=== PATIENT | male | born 1960 | race Caucasian/White ===

== ENCOUNTER → 2020-06-14 | Outpatient (CLI) | payer SELFPAY | LOC: M LABSMTC 09:51 | PROVIDERS: ATTEND Pediatrics | DX: Z20.822 Contact with and (suspected) exposure to COVID-19 (principal) ==

== ENCOUNTER 2020-07-29 10:31 | Emergency (ER) | payer MEDICARE, SELFPAY ==
[~2020-07-29] VITALS: Ht 177.8 cm; Wt 93.2 kg
[2020-07-29] MEDS ORDERED: KETOROLAC 30 MG/ML 1ML VIAL IV ONE (11:15)
[2020-07-29] MEDS ORDERED: ONDANSETRON 4MG/2ML VIAL IV ONE (11:15)
[2020-07-29] MEDS ORDERED: NS 1,000 ML IV ONE (11:15)
--- OUTSIDE RECORDS SUMMARY | 2020-07-29 11:30 | CCD ---
Continuity of Care Document (CCD) Created on: 05/11/2020 Catracho Taylor External Reference #: [id number] : [id number] Sex: Male Author Author Catracho REYNA Organization Unknown Address [address] [place] [id number] Phone [phone] Care Team Providers Care Instant Printer Operator Name Role Phone PCP Out Of Area AUTM [facility] AUTM [phone] Problems Description No Information Available Social History Type Date Description Comments Sex Unknown Allergies, Adverse Reactions, Alerts Description No Information Available Medications Description No Information Available Immunizations Description No Information Available Vital Signs Description No Information Available Results Description No Information Available Procedures Description No Information Available Medical Devices Description No Information Available Encounters Description No Information Available Assessments Date Code Description Provider 05/11/2020 Z20.828 Contact with and (robertson spected) exposure to other viral communicable diseases RAMEZ Kuo Plan of Treatment No Information Available Functional Status Description No Information Available Mental Status Description No Information Available Referrals Description No Information Available
--- OUTSIDE RECORDS SUMMARY | 2020-07-29 11:30 | CCD | Continuity of Care Document ---
Author Author Catracho REYNA [place] Organization Unknown Address [address] [place] [id number] Phone [phone] Care Team Providers Care Security Advisor Name Role Phone PCP Out Of Area AUTM Unavailable Problems Description No Information Available Social History Type Date Description Comments Sex Unknown Allergies, Adverse Reactions, Alerts Description No Information Available Medications Description No Information Available Immunizations Description No Information Available Vital Signs Description No Information Available Results Description No Information Available Procedures Description No Information Available Medical Devices Description No Information Available Encounters Description No Information Available Assessments Description No Information Available Plan of Treatment No Information Available Functional Status Description No Information Available Mental Status Description No Information Available Referrals Description No Information Available
--- OUTSIDE RECORDS SUMMARY | 2020-07-29 11:30 | CCD ---
Author Author [facility] Organization [facility] Address [address], [place] [id number] Phone Care Team Providers Care Web Support Engineer Name Role Phone Nikolas Franklin Unavailable Allergies, Adverse Reactions, Alerts No Known Drug Allerg ies 07/24/2017 Allergies Removed from Chart: Doxycycline Reaction: NAUSEATED, HEARTBURN 08/23/2016 Isovue-128 07/24/2017 Medications * Continue: * * nortriptyline 25 mg capsule , Take 1-2 capsule (hard, soft, etc.) orally At bedtime 01/22/2011 * PriLOSEC 40 mg capsule,delayed release , Take 1 capsule,delayed release (enteric coated) orally daily 01/22/2011 * Praveen Anderson MD * magnesium oxide 500 mg tablet , Take 1 tablet orally daily 07/10/2013 * Franklin Connor RPA-C * fluticasone propionate 50 mcg/actuation nasal spray,suspension , Take 1-2 spray, suspension nasally QD EA NOSTRIL DIRECTED 05/24/2015 * LaMICtaL 100 mg tablet , Take 1 tablet orally every day 02/20/2019 * Valtrex 1 gram tablet , Take 1 tablet orally Three times a day 06/17/2019 * Discontinued: * Praveen Anderson MD * simvastatin 10 mg tablet , Dr Lopes 06/11/2019 * amoxicillin 875 mg tablet , Take 1 tablet orally Twice a day 10/21/2010 * Augmentin 875 mg-125 mg tablet , Take 1 tablet orally BID 08/01/2017 * * OxyCONTIN 20 mg tablet,extended release , Dr Lepe 04/28/2013 * lisinopriL 5 mg tablet 08/18/2013 * nadoloL 20 mg tablet 07/31/2013 * simvastatin 20 mg tablet 05/26/2013 * metFORMIN ER 500 mg tablet,extended release 24 hr 08/10/2014 * Transderm-Scop 1.5 mg transdermal patch (1 mg over 3 days) 04/28/2013 * amoxicillin 875 mg-potassium clavulanate 125 mg tablet 05/26/2013 * amoxicillin 875 mg tablet , Take 1 tablet orally Twice a day 08/11/2013 * Toprol XL 25 mg tablet,extended release 09/22/2013 * Valtrex 1 gram tablet , Take 1 tablet orally Three times a day 10/22/2016 * KYLEIGH DOMINGUEZ * Jublia 10 % topical solution with applicator 05/06/2018 * amLODIPine 5 mg tablet 06/17/2019 * Wellbutrin SR 200 mg tablet, 12 hr sustained-release 06/17/2019 * Zovirax 400 mg tablet 05/06/2018 * Valtrex 1 gram tablet 05/06/2018 * Valtrex 1 gram tablet 05/06/2018 * Erica Estrada RN * Flomax 0.4 mg capsule , Dr Brown 02/04/2019 * Flonase 50 mcg/actuation nasal spray,suspension 11/07/2015 * nadoloL 20 mg tablet 08/17/2015 * Keflex 500 mg capsule 03/11/2019 * Franklin Connor RPA-C * LaMICtaL 25 mg tablet , Per psychiatrist/Dr Beth 02/20/2019 * penicillin V potassium 500 mg tablet 02/11/2019 * Martha Luna MD * penicillin V potassium 500 mg tablet , Take 1 tablet orally Three times a day 12/03/2010 * Rosangela Ghotra RN * simvastatin 40 mg tablet 10/01/2017 * Pre-existing: * cyclobenzaprine 10 mg tablet , Take 1 tablet orally Three times a day as needed, Dr Lepe * Lidoderm 5 % topical patch , Apply 1 adhesive patch, medicated topically daily if needed, Dr Lepe * multivitamin capsule , Take 1 capsule (hard, soft, etc.) orally daily, otc * aspirin 81 mg chewable tablet , Take 1 tablet, chewable orally every day * Fish Oil [place] 3-6-9 300 mg-1,000 mg capsule,delayed release , Take 1 capsule,delayed release (enteric coated) orally every day, otc * Topamax 100 mg tablet * simvastatin 20 mg tablet , Take 1 tablet orally HS, Dr Lopes Problems Pure hypercholesterolemia (E78.0) 015 Essential (primary) hypertension (I10) 1 Other intervertebral disc displacement, 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) 03/15/2015 Gastro-esophageal reflux disease without esophagitis (K21.9) 03/15/2015 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) 03/15/2015 Encounter for general adult medical exam ination without abnormal findings (Z00.00) 12/07/2015 Sick sinus syndrome (I49.5) 12/07/2015 Presence of cardiac pacemaker (Z95.0) Zoster without complications (B02.9) Type 2 diabetes mellitus without complic ations (E11.9) 10/01/2017 Dorsalgia, unspecified (M54.9) 01/03/2018 Syncope and collapse (R55) 02/04/2019 Acute bronchitis, unspecified (J20.9) 02/11/2019 Pre-existing: Hypertension (401.1) GERD (530.11) Hypercholesterolemia (272.0) NIDDM (250.00) Depression NOS (311) Resolved: Displacement of thoracic intervertebral disc without myelopathy (722.11) 03/15/2015 Displacement oflumbar intervertebral disc without myelopathy (722.10) 03/15/2015 Post Laminectomy syndrome Cervical (722.81) 03/15/2015 Knee pain (719.46) 04/06/2013 Pharyngitis (462) 05/26/2013 CPE adult (V70.0) 04/06/2013 Lateral Epicondylitis (726.32) 04/06/2013 Headache (784.0) 01/12/2014 Sinusitis, Acute (461.9) 05/26/2013 CPE adult (V70.0) 07/31/2013 Sinusitis, Acute (461.9) 01/12/2014 Syncope & collapse (780.2) 01/12/2014 Palpitations (785.1) 03/15/2015 DYSPNEA (786.05) 01/12/2014 Pharyngitis (462) 01/12/2014 Acute pharyngitis (462) 03/15/2015 Dermatophytosis, Onychomycosis (110.1) 03/15/2015 URI (460) 03/15/2015 Postlaminectomy syndrome, not elsewhere classified (M96.1) 03/11/2019 Other intervertebral disc displacement, lumbar region (M51.26) 03/11/2019 Acute upper respiratory infection, unspecified (J06.9) 12/07/2015 Acute pharyngitis, unspecified (J02.9) 03/11/2019 Rash and other nonspecific skin eruption (R21) 03/11/2019 Diplopia (H53.2) 03/11/2019 Headache (R51) 03/11/2019 Acute pharyngitis, unspecified (J02.9) 03/11/2019 Cough (R05) 03/11/2019 Results HEMOGLOBIN A1C @: 5.7 % 08/04/2014 EST AVERAGE GLUCOSE: 117 MG/DL 5 Foot/ankle neuro exam: EXTREMITIES: No edema. . 12/07/2015 Healthcare Proxy: During today's patien t visit, The Healthcare Proxy is in place 12/07/2015 Foot/ankle neuro exam: EXTREMITIES: No edema. . 07/24/2017 Foot/ankle neuro exam: peripheral pulse s are palpable 09/10/2017 HEMOGLOBIN A1C @: 6.3 % 09/10/2017 EST AVERAGE GLUCOSE: 134 MG/DL 09/10/2017 DIRECT LDL @: 141 MG/DL 09/10/2017 TSH,ULTRASENSITIVE @: 0.956 mIU/L 018 CHOLESTEROL @: 237 MG/DL 09/10/2017 TRIGLYCERIDE @: 315 MG/DL 09/10/2017 HDL CHOLESTEROL @: 52 MG/DL 09/10/2017 CHOL/HDL RATIO: 4.6 RATIO 09/10/2017 LDL CHOL (CALC): UNABLE TO CALCULATE VA LID LDL DUE TO 09/10/2017 SODIUM: 139 mmol/L 09/10/2017 Potassium: 3.7 mmol/L 09/10/2017 CHLORIDE: 103 mmol/L 09/10/2017 CO2: 25 mmol/L 09/10/2017 Anion Gap: 11 mmol/L 09/10/2017 UREA NITROGEN: 17 MG/DL 09/10/2017 Creatinine: 1.24 MG/DL 09/10/2017 BUN/CREAT RATIO: 13.7 RATIO 09/10/2017 Glucose: 119 MG/DL 09/10/2017 CALCIUM: 9.3 MG/DL 09/10/2017 TOTAL PROTEIN: 7.9 g/dL 09/10/2017 Albumin: 4.1 g/dL 09/10/2017 GLOBULIN: 3.8 g/dL 09/10/2017 ALB/GLOB RATIO: 1.1 RATIO 09/10/2017 ALKALINE PHOSPHATASE: 81 U/L 09/10/2017 BILIRUBIN,TOTAL: 0.7 MG/DL 09/10/2017 AST (SGOT): 25 U/L 09/10/2017 ALT (SGPT): 43 U/L 09/10/2017 GFR : >60 09/10/2017 GFR ( AMER): >60 09/10/2017 WBC: 6 10*3/uL 09/10/2017 RBC: 4.78 10*6/uL 09/10/2017 HGB: 15.2 g/dL 09/10/2017 HCT: 44.2 % 09/10/2017 MCV: 92.6 fL 09/10/2017 MCH: 31.8 pg 09/10/2017 MCHC: 34.3 g/dL 09/10/2017 RDW: 13.8 % 09/10/2017 PLT: 284 10*3/uL 09/10/2017 MPV: 8.4 fL 09/10/2017 NEUT %: 57.9 % 09/10/2017 LYMPH %: 33.6 % 09/10/2017 MONO %: 6.5 % 09/10/2017 EOS %: 1.4 % 09/10/2017 BASO %: 0.6 % 09/10/2017 NEUT #: 3.5 10*3/uL 09/10/2017 LYMPH #: 2 10*3/uL 09/10/2017 MONO #: 0.4 10*3/uL 09/10/2017 EOS #: 0.1 10*3/uL 09/10/2017 BASO #: 0 10*3/uL 09/10/2017 Foot/ankle neuro exam: EXTREMITIES: No edema. . 01/28/2018 HEPATITIS C AB @: NEGATIVE 02/04/2019 HEMOGLOBIN A1C @: 6.4 % 02/04/2019 EST AVERAGE GLUCOSE: 137 MG/DL 9 TSH,ULTRASENSITIVE @: 0.579 mIU/L 2018 CHOLESTEROL @: 222 MG/DL 02/04/2019 TRIGLYCERIDE @: 211 MG/DL 02/04/2019 HDL CHOLESTEROL @: 52 MG/DL 02/04/2019 CHOL/HDL RATIO: 4.3 RATIO 02/04/2019 LDL CHOL (CALC): 128 MG/DL 02/04/2019 SODIUM: 141 mmol/L 02/04/2019 Potassium: 3.9 mmol/L 02/04/2019 CHLORIDE: 107 mmol/L 02/04/2019 CO2: 30 mmol/L 02/04/2019 Anion Gap: 4 mmol/L 02/04/2019 UREA NITROGEN: 15 MG/DL 02/04/2019 Creatinine: 1.06 MG/DL 02/04/2019 BUN/CREAT RATIO: 14.2 RATIO 02/04/2019 Glucose: 134 MG/DL 02/04/2019 CALCIUM: 8.9 MG/DL 02/04/2019 TOTAL PROTEIN: 7.2 g/dL 02/04/2019 Albumin: 4.1 g/dL 02/04/2019 GLOBULIN: 3.1 g/dL 02/04/2019 ALB/GLOB RATIO: 1.3 RATIO 02/04/2019 ALKALINE PHOSPHATASE: 69 U/L 02/04/2019 BILIRUBIN,TOTAL: 0.7 MG/DL 02/04/2019 AST (SGOT): 19 U/L 02/04/2019 ALT (SGPT): 36 U/L 02/04/2019 GFR : >60 02/04/2019 GFR ( AMER): >60 02/04/2019 WBC: 9.2 10*3/uL 02/04/2019 RBC: 4.35 10*6/uL 02/04/2019 HGB: 14 g/dL 02/04/2019 HCT: 40.9 % 02/04/2019 MCV: 93.8 fL 02/04/2019 MCH: 32.1 pg 02/04/2019 MCHC: 34.2 g/dL 02/04/2019 RDW: 13.5 % 02/04/2019 PLT: 212 10*3/uL 02/04/2019 MPV: 9.3 fL 02/04/2019 NEUT %: 69.8 % 02/04/2019 LYMPH %: 21.2 % 02/04/2019 MONO %: 7.2 % 02/04/2019 EOS %: 1.3 % 02/04/2019 BASO %: 0.5 % 02/04/2019 NEUT #: 6.4 10*3/uL 02/04/2019 LYMPH #: 2 10*3/uL 02/04/2019 MONO #: 0.7 10*3/uL 02/04/2019 EOS #: 0.1 10*3/uL 02/04/2019 BASO #: 0 10*3/uL 02/04/2019 HEMOGLOBIN A1C @: 6 % 12/28/2019 EST AVERAGE GLUCOSE: 126 MG/DL 0 DIRECT LDL @: 139 MG/DL 12/28/2019 COVID IGG SEROLOGY @: NEGATIVE 0 TSH,ULTRASENSITIVE @: 1.58 mIU/L 020 CHOLESTEROL @: 246 MG/DL 12/28/2019 TRIGLYCERIDE @: 348 MG/DL 12/28/2019 HDL CHOLESTEROL @: 47 MG/DL 12/28/2019 CHOL/HDL RATIO: 5.2 RATIO 12/28/2019 LDL CHOL (CALC): UNABLE TO CALCULATE VA LID LDL DUE TO 12/28/2019 PSA,TOTAL SCREEN @: 1.2 ng/mL 12/28/2019 SODIUM: 141 mmol/L 12/28/2019 Potassium: 4 mmol/L 12/28/2019 CHLORIDE: 108 mmol/L 12/28/2019 CO2: 25 mmol/L 12/28/2019 Anion Gap: 8 mmol/L 12/28/2019 UREA NITROGEN: 15 MG/DL 12/28/2019 Creatinine: 1.16 MG/DL 12/28/2019 BUN/CREAT RATIO: 12.9 RATIO 12/28/2019 Glucose: 125 MG/DL 12/28/2019 CALCIUM: 9.1 MG/DL 12/28/2019 TOTAL PROTEIN: 7.5 g/dL 12/28/2019 Albumin: 4.1 g/dL 12/28/2019 GLOBULIN: 3.4 g/dL 12/28/2019 ALB/GLOB RATIO: 1.2 RATIO 12/28/2019 ALKALINE PHOSPHATASE: 57 U/L 12/28/2019 BILIRUBIN,TOTAL: 0.6 MG/DL 12/28/2019 AST (SGOT): 18 U/L 12/28/2019 ALT (SGPT): 32 U/L 12/28/2019 GFR : >60 12/28/2019 GFR ( AMER): >60 12/28/2019 WBC: 5.3 10*3/uL 12/28/2019 RBC: 4.44 10*6/uL 12/28/2019 HGB: 14.3 g/dL 12/28/2019 HCT: 42.5 % 12/28/2019 MCV: 95.6 fL 12/28/2019 MCH: 32.1 pg 12/28/2019 MCHC: 33.6 g/dL 12/28/2019 RDW: 13.6 % 12/28/2019 PLT: 217 10*3/uL 12/28/2019 MPV: 9 fL 12/28/2019 NEUT %: 50.6 % 12/28/2019 LYMPH %: 39.1 % 12/28/2019 MONO %: 7.3 % 12/28/2019 EOS %: 2.3 % 12/28/2019 BASO %: 0.7 % 12/28/2019 NEUT #: 2.7 10*3/uL 12/28/2019 LYMPH #: 2.1 10*3/uL 12/28/2019 MONO #: 0.4 10*3/uL 12/28/2019 EOS #: 0.1 10*3/uL 12/28/2019 BASO #: 0 10*3/uL 12/28/2019 Procedures Performed and Ordered Today * Colonoscopy Dr Pineda (repeat 2019) 08/08/2014 * HIV Test Offered 12/07/2015 * Hepatitis C test offered 12/07/2015 * Vaccine registry consented 12/07/2015 * HIE Consented YES 01/28/2018 * * Immunization : MMR 02/18/2018 Vital signs Body Temperature: Heart Rate: Respiratory Rate: BP: Height: Weight: BMI: 98.5F 02/11/2019 68 beats per minute 0 18 breaths per minute 01/02/2016 123/82 mmHg 11/12/2019 5ft, 11in 11/12/2019 212lbs 11/12/2019 29.565 11/12/2019 Immunizations FLU SHOT >3YO (Fluzone) 04/23/2008 Tdap (ADULT) >6 04/23/2008 FLU SHOT >3YO (Fluzone) 02/16/2009 FLU SHOT >3YO (Fluzone) 04/22/2012 FLU SHOT >3YO (Fluzone) 05/23/2010 FLU SHOT >3YO (Fluzone) 04/22/2012 FLU SHOT >3YO (Fluzone) 04/06/2013 Flu QUAD PF 04/11/2017 Shingrix 10/12/2017 MEASLES IGG AB @ 11/05/2014 MUMPS IGG (IMMUNE) @ 11/05/2014 RUBELLA IGG AB @ 11/05/2014 VARICELLA ZOST IGG @ 11/05/2014 MMR 02/18/2018 MMR 02/18/2018 Shingrix 06/02/2018 Tdap (ADULT) >6 07/25/2018 Flu QUAD PF 03/11/2019 Social History Smoking Status: Never smoker. 02/04/2019 Reason for Referral Functional Status Plan of Treatment Appointments [facility] ed: October 20 8, 11:30 AM, Jairo Bhatt MD Saturday, November 10, 2007, 1:30 PM, Jairo Bhatt MD Wednesday, December 19, 2007, 9:30 AM, Jairo Bhatt MD Wednesday, April 23, 2008, 10:30 AM, Jairo Bhatt MD Wednesday, September 10, 2008, 11:00 AM, Jairo Bhatt MD Sunday, October 12, 2008, 12:00 PM, Jiaro Bhatt MD Sunday, December 14, 2008, 11:00 AM, Jairo Bhatt MD Monday, February 16, 2009, 11:00 AM, Jairo Bhatt MD Sunday, March 15, 2009, 9:30 AM, Jairo Bhatt MD Sunday, March 15, 2009, 10:00 AM, Jairo Bhatt MD Sunday, June 21, 2009, 11:00 AM, Jairo Bhatt MD Saturday, July 04, 2009, 11:30 AM, Jairo Bhatt MD Wednesday, July 15, 2009, 5:15 PM, Jairo Bhatt MD Sunday, July 19, 2009, 9:30 AM, Jairo Bhatt MD Saturday, September 12, 2009, 10:30 AM, Martha Luna MD Monday, December 07, 2009, 12:00 PM, Jairo Bhatt MD Sunday, December 20, 2009, 10:00 AM, Jairo Bhatt MD Sunday, May 23, 2010, 12:00 PM, Jairo Bhatt MD Sunday, July 04, 2010, 8:30 AM, Jairo Bhatt MD Monday, October 11, 2010, 3:15 PM, Praveen Anderson MD October, 11:30 AM, Martha Luna MD Saturday, January 22, 2011, 12:00 PM, Jairo Bhatt MD Sunday, June 19, 2011, 1:30 PM, Jairo Bhatt MD Sunday, June 19, 2011, 2:00 PM, Jairo Bhatt MD Sunday, July 24, 2011, 9:30 AM, Jairo Bhatt MD Sunday, October 23, 2011, 8:45 AM, Jairo Bhatt MD Sunday, December 25, 2011, 2:15 PM, Jairo Bhatt MD Sunday, January 22, 2012, 10:00 AM, Jairo Bhatt MD Sunday, April 22, 2012, 10:00 AM, Jairo Bhatt MD Saturday, December 22, 2012, 9:45 AM, Jairo Bhatt MD Saturday, April 06, 2013, 1:30 PM, Jairo Bhatt MD Sunday, April 28, 2013, 12:00 PM, Jairo Bhatt MD Wednesday, May 08, 2013, 2:30 PM, Martha Luna MD Sunday, May 26, 2013, 10:00 AM, Jairo Bhatt MD Wednesday, July 31, 2013, 1:30 PM, Jairo Bhatt MD Wednesday, July 31, 2013, 2:00 PM, Jairo Bhatt MD Sunday, August 18, 2013, 10:00 AM, Jairo Bhatt MD Sunday, September 22, 2013, 8:30 AM, Jairo Bhatt MD Monday, December 30, 2013, 8:30 AM, Jairo Bhatt MD Sunday, January 12, 2014, 9:45 AM, Jairo Bhatt MD daisyJuly 01, 2014, 10:30 AM, Praveen Anderson MD Saturday, August 09, 2014, 10:00 AM, Andie MYRICK Sunday, August 10, 2014, 10:00 AM, Jairo Bhatt MD Sunday, September 14, 2014, 11:15 AM, Jairo Bhatt MD Sunday, March 15, 2015, 11:00 AM, Jairo Bhatt MD Monday, August 17, 2015, 3:30 PM, Praveen Anderson MD Monday, December 07, 2015, 10:00 AM, Jairo Bhatt MD Saturday, January 02, 2016, 1:30 PM, Jairo Bhatt MD March, 11:30 AM, Praveen Anderson MD August, 11:15 AM, Praveen Anderson MD Saturday, October 16, 2016, 3:00 PM, Terence Mortensen MD Monday, July 24, 2017, 3:30 PM, Damaris MYRICK Sunday, September 10, 2017, 11:00 AM, Praveen Anderson MD Sunday, October 01, 2017, 10:00 AM, Praveen Anderson MD Wednesday, January 03, 2018, 11:00 AM, Praveen Anderson MD Sunday, January 28, 2018, 3:00 PM, Praveen Anderson MD Saturday, February 18, 2018, 9:45 AM, Monday, February 04, 2019, 10:45 AM, Franklin MYRICK Monday, February 11, 2019, 11:00 AM, Franklin MYRICK Monday, March 11, 2019, 2:45 PM, Andie [facility] Monday, June 17, 2019, 8:30 AM, Franklin MYRICK Wednesday, August 21, 2019, 1:30 PM, Praveen Anderson MD November, 1:40 PM, Praveen Anderson MD Saturday, December 28, 2019, 9:15 AM, Payers Insurance Policy Type Po licy ID Relation Subscriber Expi ration [employer] Com[employer] l Insurance [id number] HARSH RAY 08/07/2018 [employer] [place] [employer] [place] [employer]/Shield [id number] HARSH RAY 12/08/2010 [employer] [facility] MEDICARE SOLUTIONS 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 Insurance [id number] Self TYSHAWN RAY [employer] [place] [employer] [place] [employer]ield [id number] HARSH RAY 12/07/2008 Encounters Annual wellness firs t 11/12/2019 Diagnoses Type 2 diabetes mellitus without complications Essential (primary) hypertension Office Visit - Level 3 06/17/2019 Office Visit - Level 3 02/11/2019 Office/Outpatient Vi sit, Est 02/04/2019 Office Visit - Level 3 01/28/2018 Diagnoses Acute pharyngitis, unspecified Office Visit - Level 3 01/03/2018 Diagnoses Dorsalgia, unspecified Preventive Visit, Es t, 40-64 09/10/2017 Diagnoses Encounter for general adult medical examination without abnormal findings Office Visit - Level 3 10/16/2016 Diagnoses Rash and other nonspecific skin eruption Office/Outpatient Vi sit, Est 08/23/2016 Diagnoses Zoster without complications Office/Outpatient Vi sit, Est 04/05/2016 Diagnoses Acute pharyngitis, unspecified Office Visit - Level 3 01/02/2016 Diagnoses Acute pharyngitis, unspecified Other intervertebral disc displacement, thoracic region Postlaminectomy syndrome, not elsewhere classified Other intervertebral disc displacement, lumbar region Preventive Visit, Es t, 40-64 12/07/2015 Diagnoses Encounter for general adult medical examination without abnormal findings Essential (primary) hypertension Gastro-esophageal reflux disease without esophagitis Other recurrent depressive disorders Office Visit - Level 3 08/17/2015 Diagnoses Acute upper respiratory infection, unspecified Office Visit - Level 3 03/15/2015 Diagnoses Essential (primary) hypertension Other intervertebral disc displacement, thoracic region Other recurrent depressive disorders Postlaminectomy syndrome, not elsewhere classified Other intervertebral disc displacement, lumbar region Office Visit - Level 3 09/14/2014 Office/Outpatient Vi sit, Est 08/10/2014 Office Visit - Level 3 07/01/2014 Office Visit - Level 3 01/12/2014 Office Visit - Level 3 12/30/2013 Office Visit - Level 3 09/22/2013 Office Visit - Level 3 08/18/2013 Office/Outpatient Vi sit, Est 07/31/2013 Preventive Visit, Es t, 40-64 05/26/2013 Office Visit - Level 3 05/08/2013 Office Visit - Level 3 04/28/2013 Office Visit - Level 3 04/06/2013 Office Visit - Level 3 12/22/2012 Preventive Visit, Es t, 40-64 04/22/2012 Office Visit - Level 3 01/22/2012 Office Visit - Level 3 12/25/2011 Office Visit - Level 3 10/23/2011 Office Visit - Level 3 07/24/2011
--- OUTSIDE RECORDS SUMMARY | 2020-07-29 11:31 | CCD ---
Author Author [facility] Organization [facility] Address Unknown Phone Unavailable Care Team Providers Care Vp Research Name Role Phone Liss GORE Unavailable Unavailable DanielaateVan chappell MD Unavailable Unavailable Bagatell L Jairo BOB Unavailable Unavailable Bagatell L Jairo BOB Unavailable Unavailable Bagatell, L Jairo BOB Unavailable Unavailable Bagatell L Jairo BOB Unavailable Unavailable Bagatell L Jairo BOB Unavailable Unavailable BagatellVan MD Unavailable Unavailable Bagatell L Jairo BOB Unavailable Unavailable Bagatell, L Jairo BOB Unavailable Unavailable Bagatell, L Jairo BOB Unavailable Unavailable Bagatell L Jairo BOB Unavailable Unavailable Bagatell L Jairo BOB Unavailable Unavailable Bagatell L Jairo BOB Unavailable Unavailable Bagatell L Jairo MD Unavailable Unavailable Bagatell L Jairo BOB Unavailable Unavailable Bagatell, L Jairo BOB Unavailable Unavailable Bagatell, L Jairo BOB Unavailable Unavailable Bagatell L Jairo Unavailable Unavailable Bagatell, L Jairo Unavailable Unavailable Bagatell, L Jairo Unavailable Unavailable Bagatell, L Jairo Unavailable Unavailable Bagatell, L Jairo MD Unavailable Unavailable Bagatell, L Jairo Unavailable Unavailable Bagatell, L Jairo MD Unavailable Unavailable Bagatell, L Jairo Unavailable Unavailable Bagatell, L Jairo Unavailable Unavailable Bagatell, L Jairo MD Unavailable Unavailable Danielaateta, Van Gill MD Unavailable Unavailable Bagateta, Van Gill MD Unavailable Unavailable Bagateta, Van Gill MD Unavailable Unavailable Bagateat, Van Gill MD Unavailable Unavailable Bagateta, Van Gill MD Unavailable Unavailable Miller, Van Gill MD Unavailable Unavailable Miller, Van Gill MD Unavailable Unavailable Bagateta, Van Gill MD Unavailable Unavailable Bagateta, Van Gill MD Unavailable Unavailable Alvarenga, M Martha UKE DRIVER Unavailable Unavailable Alvarenga, M Martha UKE DRIVER Unavailable Unavailable Alvarenga, M Martha UKE DRIVER Unavailable Unavailable Alvarenga, M Martha UKE DRIVER Unavailable Unavailable Alvarenga, M Martha UKE DRIVER Unavailable Unavailable Alvarenga, M Martha UKE DRIVER Unavailable Unavailable Alvarenga, M Martha UKE DRIVER Unavailable Unavailable Alvarenga, M Martha UKE DRIVER Unavailable Unavailable Alvarenga, M Martha UKE DRIVER Unavailable Unavailable Alvarenga, M Martha UKE DRIVER Unavailable Unavailable Alvarenga, M Martha UKE DRIVER Unavailable Unavailable Alvarenga, M Martha UKE DRIVER Unavailable Unavailable Alvarenga, M Martha UKE DRIVER Unavailable Unavailable Alvarenga, M Martha UKE DRIVER Unavailable Unavailable Alvarenga, M Martha UKE DRIVER Unavailable Unavailable Alvarenga, M Martha UKE DRIVER Unavailable Unavailable Alvarenga, M Martha UKE DRIVER Unavailable Unavailable Alvarenga, M Martha UKE DRIVER Unavailable Unavailable Alvarenga, M Martha UKE DRIVER Unavailable Unavailable Alvarenga, M Martha UKE DRIVER Unavailable Unavailable Alvarenga, M Martha UKE DRIVER Unavailable Unavailable Alvarenga, M Martha UKE DRIVER Unavailable Unavailable Alvarenga, M Martha UKE DRIVER Unavailable Unavailable Alvarenga, M Martha UKE DRIVER Unavailable Unavailable Alvarenga, M Martha UKE DRIVER Unavailable Unavailable Alvarenga, M Martha UKE DRIVER Unavailable Unavailable Alvarenga, M Martha UKE DRIVER Unavailable Unavailable REAGAN, Liss PALOMARES MD Unavailable Unavailable Liss KIRK MD Unavailable Unavailable Liss KIRK MD Unavailable Unavailable Liss KIRK MD Unavailable Unavailable Liss KIRK MD Unavailable Unavailable Liss KIRK MD Unavailable Unavailable Liss KIRK MD Unavailable Unavailable Liss KIRK MD Unavailable Unavailable Liss KIRK MD Unavailable Unavailable Liss KIRK MD Unavailable Unavailable Liss KIRK MD Unavailable Unavailable Liss KIRK MD Unavailable Unavailable Liss KIRK MD Unavailable Unavailable Liss KIRK MD Unavailable Unavailable Liss KIRK MD Unavailable Unavailable REAGAN, Liss PALOMARES MD Unavailable Unavailable REAGAN, Liss PALOMARES MD Unavailable Unavailable REAGAN, Liss PALOMARES MD Unavailable Unavailable REAGAN, Liss PALOMARES MD Unavailable Unavailable REAGAN, Liss PALOMARES MD Unavailable Unavailable REAGAN, Liss PALOMARES MD Unavailable Unavailable REAGAN, Liss PALOMARES MD Unavailable Unavailable REAGAN, Liss PALOMARES MD Unavailable Unavailable REAGAN, Liss PALOMARES MD Unavailable Unavailable REAGAN, Liss PALOMARES MD Unavailable Unavailable REAGAN, Liss PALOMARES MD Unavailable Unavailable REAGAN, Liss PALOMARES MD Unavailable Unavailable REAGAN, Liss PALOMARES MD Unavailable Unavailable REAGAN, Liss PALOMARES MD Unavailable Unavailable REAGAN, Liss PALOMARES MD Unavailable Unavailable REAGAN, Liss PALOMARES MD Unavailable Unavailable REAGAN, Liss PALOMARES MD Unavailable Unavailable REAGAN, Liss PALOMARES MD Unavailable Unavailable REAGAN, Liss PALOMARES MD Unavailable Unavailable REAGAN, Liss PALOMARES MD Unavailable Unavailable REAGAN, Liss PALOMARES MD Unavailable Unavailable REAGAN, Liss PALOMARES MD Unavailable Unavailable REAGAN, Liss PALOMARES MD Unavailable Unavailable REAGAN, Liss PALOMARES MD Unavailable Unavailable REAGAN, Liss PALOMARES MD Unavailable Unavailable REAGNA, Liss PALOMARES MD Unavailable Unavailable REAGAN, Liss PALOMARES MD Unavailable Unavailable REAGAN, Liss PALOMARES MD Unavailable Unavailable REAGAN, Liss PALOMARES MD Unavailable Unavailable REAGAN, Liss PALOMARES MD Unavailable Unavailable REAGAN, Liss PALOMARES MD Unavailable Unavailable REAGAN, Liss PALOMARES MD Unavailable Unavailable REAGAN, Liss PALOMARES MD Unavailable Unavailable REAGAN, Liss PALOMARES MD Unavailable Unavailable REAGAN, Liss PALOMARES MD Unavailable Unavailable REAGAN, Liss PALOMARES MD Unavailable Unavailable REAGAN, Liss PALOMARES MD Unavailable Unavailable REAGAN, Liss PALOMARES MD Unavailable Unavailable REAGAN, Liss PALOMARES MD Unavailable Unavailable REAGAN, Liss PALOMARES MD Unavailable Unavailable REAGAN, Liss PALOMARES MD Unavailable Unavailable REAGAN, Liss PALOMARES MD Unavailable Unavailable REAGAN, Liss PALOMARES MD Unavailable Unavailable REAGAN, Liss PALOMARES MD Unavailable Unavailable REAGAN, A CHRISTOPHER MD Unavailable Unavailable REAGAN, A JELANI MD Unavailable Unavailable REAGAN, A CHRISTOPHER MD Unavailable Unavailable REAGAN, A CHRISTOPHER MD Unavailable Unavailable REAGAN, A CHRISTOPHER MD Unavailable Unavailable REAGAN, A CHRISTOPHER MD Unavailable Unavailable REAGAN, A CHRISTOPHER MD Unavailable Unavailable REAGAN, A CHRISTOPHER MD Unavailable Unavailable REAGAN, A CHRISTOPHER MD Unavailable Unavailable REAGAN, A LATISHAOPHER MD Unavailable Unavailable REAGAN, A LATISHAOPHER MD Unavailable Unavailable REAGAN, A CHRISTOPHER MD Unavailable Unavailable REAGAN, A CHRISTOPHER MD Unavailable Unavailable ANDERSON, SILVIA MD Unavailable Unavailable ANDERSON, SILVIA MD Unavailable Unavailable ANDERSON, SILVIA MD Unavailable Unavailable ANDERSON, SILVIA MD Unavailable Unavailable ANDERSON, SILVIA MD Unavailable Unavailable ANDERSON, SILVIA MD Unavailable Unavailable ANDERSON, SILVIA MD Unavailable Unavailable ANDERSON, SILVIA MD Unavailable Unavailable ANDERSON, SILVIA MD Unavailable Unavailable ANDERSON, SILVIA MD Unavailable Unavailable ANDERSON, SILVIA MD Unavailable Unavailable ANDERSON, SILVIA MD Unavailable Unavailable ANDERSON, SILVIA MD Unavailable Unavailable ANDERSON, SILVIA MD Unavailable Unavailable ANDERSON, SILVIA MD Unavailable Unavailable ANDERSON, SILVIA MD Unavailable Unavailable ANDERSON, SILVIA MD Unavailable Unavailable ANDERSON, SILVIA MD Unavailable Unavailable ANDERSON, SILVIA MD Unavailable Unavailable ANDERSON, SILVIA MD Unavailable Unavailable ANDERSON, SILVIA MD Unavailable Unavailable ANDERSON, SILVIA MD Unavailable Unavailable ANDERSON, SILVIA MD Unavailable Unavailable ANDERSON, SILVIA MD Unavailable Unavailable ANDERSON, SILVIA MD Unavailable Unavailable ANDERSON, SILVIA MD Unavailable Unavailable ANDERSON, SILVIA MD Unavailable Unavailable ANDERSON, SILVIA MD Unavailable Unavailable ANDERSON, SILVIA MD Unavailable Unavailable ANDERSON, SILVIA MD Unavailable Unavailable ANDERSON, SILVIA MD Unavailable Unavailable ANDERSON, SILVIA MD Unavailable Unavailable ANDERSON, SILVIA MD Unavailable Unavailable ANDERSON, SILVIA MD Unavailable Unavailable ANDERSON, SILVIA MD Unavailable Unavailable ANDERSON, SILVIA MD Unavailable Unavailable ANDERSON, SILVIA MD Unavailable Unavailable ANDERSON, SILVIA MD Unavailable Unavailable ANDERSON, SILVIA MD Unavailable Unavailable ANDERSON, SILVIA MD Unavailable Unavailable ANDERSON, SILVIA MD Unavailable Unavailable ANDERSON, SILVIA MD Unavailable Unavailable ANDERSON, SILVIA MD Unavailable Unavailable ANDERSON, SILVIA MD Unavailable Unavailable ANDERSON, SILVIA MD Unavailable Unavailable ANDERSON, SILVIA MD Unavailable Unavailable ANDERSON, SILVIA MD Unavailable Unavailable ANDERSON, SILVIA MD Unavailable Unavailable ANDERSON, SILIVA MD Unavailable Unavailable ANDERSON, SILVIA MD Unavailable Unavailable ANDERSON, SILVIA MD Unavailable Unavailable ANDERSON, SILVIA MD Unavailable Unavailable ANDERSON, SILVIA MD Unavailable Unavailable ANDERSON, SILVIA MD Unavailable Unavailable ANDERSON, SILVIA MD Unavailable Unavailable ANDERSON, SILVIA MD Unavailable Unavailable ANDERSON, SILVIA MD Unavailable Unavailable ANDERSON, SILVIA MD Unavailable Unavailable ANDERSON, SILVIA MD Unavailable Unavailable ANDERSON, SILVIA MD Unavailable Unavailable ANDERSON, SILVIA MD Unavailable Unavailable ANDERSON, SILVIA MD Unavailable Unavailable ANDERSON, SILVIA MD Unavailable Unavailable ANDERSON, SILVIA MD Unavailable Unavailable ANDERSON, SILVIA MD Unavailable Unavailable ANDERSON, SILVIA MD Unavailable Unavailable ANDERSON, SILVIA MD Unavailable Unavailable ANDERSON, SILVIA MD Unavailable Unavailable ANDERSON, SILVIA MD Unavailable Unavailable ANDERSON, SILVIA MD Unavailable Unavailable ANDERSON, SILVIA MD Unavailable Unavailable ANDERSON, SILVIA MD Unavailable Unavailable ANDERSON, SILVIA MD Unavailable Unavailable REAGAN, Liss PALOMARES MD Unavailable Unavailable REAGAN, Liss PALOMARES MD Unavailable Unavailable REAGAN, Liss PALOMARES MD Unavailable Unavailable REAGAN, Liss PALOMARES MD Unavailable Unavailable REAGAN, Liss PALOMARES MD Unavailable Unavailable REAGAN, Liss PALOMARES MD Unavailable Unavailable REAGAN, Liss PALOMARES MD Unavailable Unavailable REAGAN, Liss PALOMARES MD Unavailable Unavailable REAGAN, Liss PALOMARES MD Unavailable Unavailable REAGAN, Liss PALOMARES MD Unavailable Unavailable REAGAN, Liss PALOMARES MD Unavailable Unavailable REAGAN, Liss PALOMARES MD Unavailable Unavailable REAGAN, Liss PALOMARES MD Unavailable Unavailable REAGAN, Liss PALOMARES MD Unavailable Unavailable REAGAN, Liss PALOMARES MD Unavailable Unavailable REAGAN, Liss PALOMARES MD Unavailable Unavailable REAGAN, Liss PALOMARES MD Unavailable Unavailable REAGAN, Liss PALOMARES MD Unavailable Unavailable REAGAN, Liss PALOMARES MD Unavailable Unavailable REAGAN, Liss PALOMARES MD Unavailable Unavailable REAGAN, Liss PALOMARES MD Unavailable Unavailable REAGAN, Liss PALOMARES MD Unavailable Unavailable REAGAN, Liss PALOMARES MD Unavailable Unavailable REAGAN, Liss PALOMARES MD Unavailable Unavailable REAGAN, Liss PALOMARES MD Unavailable Unavailable REAGAN, Liss PALOMRAES MD Unavailable Unavailable REAGAN, Liss PALOMARES MD Unavailable Unavailable REAGAN, Liss PALOMARES MD Unavailable Unavailable REAGAN, Liss PALOMARES MD Unavailable Unavailable REAGAN, Liss PALOMARES MD Unavailable Unavailable REAGAN, Liss PALOMARES MD Unavailable Unavailable REAGAN, Liss PALOMARES MD Unavailable Unavailable REAGAN, Liss PALOMARES MD Unavailable Unavailable REAGAN, Liss PALOMARES MD Unavailable Unavailable REAGAN, Liss PALOMARES MD Unavailable Unavailable REAGAN, Liss PALOMARES MD Unavailable Unavailable REAGAN, Liss PALOMARES MD Unavailable Unavailable REAGAN, Liss PALOMARES MD Unavailable Unavailable REAGAN, Liss PALOMARES MD Unavailable Unavailable REAGAN, Liss PALOMARES MD Unavailable Unavailable REAGAN, Liss PALOMARES MD Unavailable Unavailable REAGAN, Liss PALOMARES MD Unavailable Unavailable REAGAN, Liss PALOMARES MD Unavailable Unavailable REAGAN, Liss PALOMARES MD Unavailable Unavailable REAGAN, Liss PALOMARES MD Unavailable Unavailable REAGAN, Liss PALOMARES MD Unavailable Unavailable REAGAN, Liss PALOMARES MD Unavailable Unavailable REAGAN, Liss PALOMARES MD Unavailable Unavailable REAGAN, Liss PALOMARES MD Unavailable Unavailable REAGAN, Liss PALOMARES MD Unavailable Unavailable REAGAN, Liss PALOMARES MD Unavailable Unavailable REAGAN, Liss PALOMARES MD Unavailable Unavailable REAGAN, Liss PALOMARES MD Unavailable Unavailable REAGAN, Liss PALOMARES MD Unavailable Unavailable REAGAN, Liss PALOMARES MD Unavailable Unavailable REAGAN, Liss PALOMARES MD Unavailable Unavailable REAGAN, Liss PALOMARES MD Unavailable Unavailable REAGAN, Liss PALOMARES MD Unavailable Unavailable REAGAN, Liss PALOMARES MD Unavailable Unavailable REAGAN, Liss PALOMARES MD Unavailable Unavailable REAGAN, Liss PALOMARES MD Unavailable Unavailable REAGAN, Liss PALOMARES MD Unavailable Unavailable REAGAN, Liss PALOMARES MD Unavailable Unavailable REAGAN, Liss PALOMARES MD Unavailable Unavailable REAGAN, Liss PALOMARES MD Unavailable Unavailable REAGAN, Liss PALOMARES MD Unavailable Unavailable REAGAN, Liss PALOMARES MD Unavailable Unavailable REAGAN, Liss PALOMARES MD Unavailable Unavailable REAGAN, Liss PALOMARES MD Unavailable Unavailable REAGAN, Liss PALOMARES MD Unavailable Unavailable REAGAN, Liss PALOMARES MD Unavailable Unavailable REAGAN, Liss PALOMARES MD Unavailable Unavailable JACQUELYN, COLETTE PA Unavailable Unavailable JACQUELYN, COLETTE PA Unavailable Unavailable JACQUELYN, COLETTE PA Unavailable Unavailable JACQUELYN, COLETTE PA Unavailable Unavailable JACQUELYN, COLETTE PA Unavailable Unavailable JACQUELYN, COLETTE PA Unavailable Unavailable JACQUELYN, COLETTE PA Unavailable Unavailable JACQUELYN, COLETTE PA Unavailable Unavailable JACQUELYN, COLETTE PA Unavailable Unavailable JACQUELYN, COLETTE PA Unavailable Unavailable JACQUELYN, COLETTE PA Unavailable Unavailable JACQUELYN, COLETTE PA Unavailable Unavailable JACQUELYN, COLETTE PA Unavailable Unavailable JACQUELYN, COLETTE PA Unavailable Unavailable JACQUELYN, COLETTE PA Unavailable Unavailable JACQUELYN, COLETTE PA Unavailable Unavailable JACQUELYN, COLETTE PA Unavailable Unavailable JACQUELYN, COLETTE PA Unavailable Unavailable JACQUELYN, COLETTE PA Unavailable Unavailable JACQUELYN, COLETTE PA Unavailable Unavailable JACQUELYN, COLETTE PA Unavailable Unavailable JACQUELYN, COLETTE PA Unavailable Unavailable JACQUELYN, COLETTE PA Unavailable Unavailable JACQUELYN, COLETTE PA Unavailable Unavailable JACQUELYN, COLETTE PA Unavailable Unavailable JACQUELYN, COLETTE PA Unavailable Unavailable JACQUELYN, COLETTE PA Unavailable Unavailable JACQUELYN, COLETTE PA Unavailable Unavailable JACQUELYN, COLETTE PA Unavailable Unavailable JACQUELYN, COLETTE PA Unavailable Unavailable JACQUELYN, COLETTE PA Unavailable Unavailable JACQUELYN, COLETTE PA Unavailable Unavailable Evan Aguirre MD Unavailable Unavailable Evan Aguirre MD Unavailable Unavailable Evna Aguirre MD Unavailable Unavailable Evan Aguirre MD Unavailable Unavailable Evan Aguirre MD Unavailable Unavailable Evan Aguirre MD Unavailable Unavailable Evan Aguirre MD Unavailable Unavailable Evan Aguirre MD Unavailable Unavailable Evan Aguirre MD Unavailable Unavailable Evan Aguirre MD Unavailable Unavailable Evan Aguirre MD Unavailable Unavailable Evan Aguirre MD Unavailable Unavailable Evan Aguirre MD Unavailable Unavailable Evan Aguirre MD Unavailable Unavailable Evan Aguirre MD Unavailable Unavailable Evan Aguirre MD Unavailable Unavailable Evan Aguirre MD Unavailable Unavailable Evan Aguirre MD Unavailable Unavailable Evan Aguirre MD Unavailable Unavailable Evan Aguirre MD Unavailable Unavailable Evan Aguirre MD Unavailable Unavailable Evan Aguirre MD Unavailable Unavailable Evan Aguirre MD Unavailable Unavailable Evan Aguirre MD Unavailable Unavailable Hazel GreenEvan MD Unavailable Unavailable Hazel GreenEvan MD Unavailable Unavailable TimothyEvannt Unavailable Unavailable TimothyEvan MD Unavailable Unavailable TimothyEvan Baldo MD Unavailable Unavailable Hazel GreenEvan MD Unavailable Unavailable TimothyEvan MD Unavailable Unavailable TimothyEvan MD Unavailable Unavailable TimothyEvan Baldo Unavailable Unavailable Hazel GreenEvan Baldo MD Unavailable Unavailable Hazel GreenEvan MD Unavailable Unavailable Hazel GreenEvan Baldo Unavailable Unavailable Hazel GreenEvan MD Unavailable Unavailable TimothyEvan MD Unavailable Unavailable Hazel GreenEvan MD Unavailable Unavailable TimothyEvannt Unavailable Unavailable TimothyEvan MD Unavailable Unavailable TimothyEvan MD Unavailable Unavailable TimothyEavn MD Unavailable Unavailable Hazel GreenEvan MD Unavailable Unavailable TimothyEvan MD Unavailable Unavailable Hazel GreenEvan MD Unavailable Unavailable Hazel Green, Evan Baldo MD Unavailable Unavailable TimothyEvan Baldo MD Unavailable Unavailable DUSSING, EDITH PSYCHOLOGIST ENGINEERING-C Unavailable Unavailable DUSSING, EDITH PSYCHOLOGIST ENGINEERING-C Unavailable Unavailable DUSSING, EDITH PSYCHOLOGIST ENGINEERING-C Unavailable Unavailable DUSSING, EDITH PSYCHOLOGIST ENGINEERING-C Unavailable Unavailable DUSSING, EDITH PSYCHOLOGIST ENGINEERING-C Unavailable Unavailable DUSSING, EDITH PSYCHOLOGIST ENGINEERING-C Unavailable Unavailable DUSSING, EDITH PSYCHOLOGIST ENGINEERING-C Unavailable Unavailable DUSSING, EDITH PSYCHOLOGIST ENGINEERING-C Unavailable Unavailable DUSSING, EDITH PSYCHOLOGIST ENGINEERING-C Unavailable Unavailable DUSSING, EDITH PSYCHOLOGIST ENGINEERING-C Unavailable Unavailable DUSSING, EDITH PSYCHOLOGIST ENGINEERING-C Unavailable Unavailable DUSSING, EDITH PSYCHOLOGIST ENGINEERING-C Unavailable Unavailable DUSSING, EDITH PSYCHOLOGIST ENGINEERING-C Unavailable Unavailable DUSSING, EDITH PSYCHOLOGIST ENGINEERING-C Unavailable Unavailable DUSSING, EDITH PSYCHOLOGIST ENGINEERING-C Unavailable Unavailable DUSSING, EDITH PSYCHOLOGIST ENGINEERING-C Unavailable Unavailable DUSSING, EDITH PSYCHOLOGIST ENGINEERING-C Unavailable Unavailable DUSSING, EDITH PSYCHOLOGIST ENGINEERING-C Unavailable Unavailable DUSSING, EDITH PSYCHOLOGIST ENGINEERING-C Unavailable Unavailable DUSSING, EDITH PSYCHOLOGIST ENGINEERING-C Unavailable Unavailable DUSSING, EDITH PSYCHOLOGIST ENGINEERING-C Unavailable Unavailable DUSSING, EDITH PSYCHOLOGIST ENGINEERING-C Unavailable Unavailable DUSSING, EDITH PSYCHOLOGIST ENGINEERING-C Unavailable Unavailable DUSSING, EDITH PSYCHOLOGIST ENGINEERING-C Unavailable Unavailable DUSSING, EDITH PSYCHOLOGIST ENGINEERING-C Unavailable Unavailable DUSSING, EDITH PSYCHOLOGIST ENGINEERING-C Unavailable Unavailable DUSSING, EDITH PSYCHOLOGIST ENGINEERING-C Unavailable Unavailable DUSSING, EDITH PSYCHOLOGIST ENGINEERING-C Unavailable Unavailable DUSSING, EDITH PSYCHOLOGIST ENGINEERING-C Unavailable Unavailable DUSSING, EDITH PSYCHOLOGIST ENGINEERING-C Unavailable Unavailable DUSSING, EDITH PSYCHOLOGIST ENGINEERING-C Unavailable Unavailable DUSSING, EDITH PSYCHOLOGIST ENGINEERING-C Unavailable Unavailable DUSSING, EDITH PSYCHOLOGIST ENGINEERING-C Unavailable Unavailable Nikolas, Franklin PA Unavailable Unavailable Nikolas, Franklin PA Unavailable Unavailable Nikolas, Franklin PA Unavailable Unavailable Nikolas, Franklin PA Unavailable Unavailable Nikolas, Franklin PA Unavailable Unavailable Nikolas, Franklin PA Unavailable Unavailable Nikolas, Franklin PA Unavailable Unavailable Nikolas, Franklin PA Unavailable Unavailable Nikolas, Franklin PA Unavailable Unavailable Nikolas, Franklin PA Unavailable Unavailable Nikolas, Franklin PA Unavailable Unavailable Nikolas, Franklin PA Unavailable Unavailable Nikolas, Franklin PA Unavailable Unavailable Nikolas, Franklin PA Unavailable Unavailable Nikolas, Franklin PA Unavailable Unavailable Nikolas, Franklin PA Unavailable Unavailable Nikolas, Franklin PA Unavailable Unavailable Nikolas, Franklin PA Unavailable Unavailable Nikolas, Franklin PA Unavailable Unavailable Nikolas, Franklin PA Unavailable Unavailable Nikolas, Franklin PA Unavailable Unavailable Nikolas, Franklin PA Unavailable Unavailable Nikolas, Franklin PA Unavailable Unavailable Nikolas, Franklin PA Unavailable Unavailable Nikolas, Franklin PA Unavailable Unavailable Nikolas, Franklin PA Unavailable Unavailable Nikolas, Franklin PA Unavailable Unavailable Nikolas, Franklin PA Unavailable Unavailable Nikolas, Franklin PA Unavailable Unavailable Nikolas, Franklin PA Unavailable Unavailable Nikolas, Franklin PA Unavailable Unavailable Nikolas, Franklin PA Unavailable Unavailable Nikolas, Franklin PA Unavailable Unavailable Nikolas, Franklin PA Unavailable Unavailable Nikolas, Franklin PA Unavailable Unavailable ALIASES , DEFAULT / GENERIC / UNKNOWN PROVIDER * Unavailable Unavailable ALIASES , DEFAULT / GENERIC / UNKNOWN PROVIDER * Unavailable Unavailable ALIASES , DEFAULT / GENERIC / UNKNOWN PROVIDER * Unavailable Unavailable ALIASES , DEFAULT / GENERIC / UNKNOWN PROVIDER * Unavailable Unavailable ALIASES , DEFAULT / GENERIC / UNKNOWN PROVIDER * Unavailable Unavailable ALIASES , DEFAULT / GENERIC / UNKNOWN PROVIDER * Unavailable Unavailable ALIASES , DEFAULT / GENERIC / UNKNOWN PROVIDER * Unavailable Unavailable ALIASES , DEFAULT / GENERIC / UNKNOWN PROVIDER * Unavailable Unavailable ALIASES , DEFAULT / GENERIC / UNKNOWN PROVIDER * Unavailable Unavailable ALIASES , DEFAULT / GENERIC / UNKNOWN PROVIDER * Unavailable Unavailable ALIASES , DEFAULT / GENERIC / UNKNOWN PROVIDER * Unavailable Unavailable ALIASES , DEFAULT / GENERIC / UNKNOWN PROVIDER * Unavailable Unavailable ALIASES , DEFAULT / GENERIC / UNKNOWN PROVIDER * Unavailable Unavailable ALIASES , DEFAULT / GENERIC / UNKNOWN PROVIDER * Unavailable Unavailable ALIASES , DEFAULT / GENERIC / UNKNOWN PROVIDER * Unavailable Unavailable ALIASES , DEFAULT / GENERIC / UNKNOWN PROVIDER * Unavailable Unavailable ALIASES , DEFAULT / GENERIC / UNKNOWN PROVIDER * Unavailable Unavailable ALIASES , DEFAULT / GENERIC / UNKNOWN PROVIDER * Unavailable Unavailable ALIASES , DEFAULT / GENERIC / UNKNOWN PROVIDER * Unavailable Unavailable ALIASES , DEFAULT / GENERIC / UNKNOWN PROVIDER * Unavailable Unavailable ALIASES , DEFAULT / GENERIC / UNKNOWN PROVIDER * Unavailable Unavailable ALIASES , DEFAULT / GENERIC / UNKNOWN PROVIDER * Unavailable Unavailable ALIASES , DEFAULT / GENERIC / UNKNOWN PROVIDER * Unavailable Unavailable ALIASES , DEFAULT / GENERIC / UNKNOWN PROVIDER * Unavailable Unavailable ALIASES , DEFAULT / GENERIC / UNKNOWN PROVIDER * Unavailable Unavailable ALIASES , DEFAULT / GENERIC / UNKNOWN PROVIDER * Unavailable Unavailable ALIASES , DEFAULT / GENERIC / UNKNOWN PROVIDER * Unavailable Unavailable ALIASES , DEFAULT / GENERIC / UNKNOWN PROVIDER * Unavailable Unavailable ALIASES , DEFAULT / GENERIC / UNKNOWN PROVIDER * Unavailable Unavailable ALIASES , DEFAULT / GENERIC / UNKNOWN PROVIDER * Unavailable Unavailable ALIASES , DEFAULT / GENERIC / UNKNOWN PROVIDER * Unavailable Unavailable ALIASES , DEFAULT / GENERIC / UNKNOWN PROVIDER * Unavailable Unavailable ALIASES , DEFAULT / GENERIC / UNKNOWN PROVIDER * Unavailable Unavailable ALIASES , DEFAULT / GENERIC / UNKNOWN PROVIDER * Unavailable Unavailable ALIASES , DEFAULT / GENERIC / UNKNOWN PROVIDER * Unavailable Unavailable ALIASES , DEFAULT / GENERIC / UNKNOWN PROVIDER * Unavailable Unavailable ALIASES , DEFAULT / GENERIC / UNKNOWN PROVIDER * Unavailable Unavailable ALIASES , DEFAULT / GENERIC / UNKNOWN PROVIDER * Unavailable Unavailable ALIASES , DEFAULT / GENERIC / UNKNOWN PROVIDER * Unavailable Unavailable ALIASES , DEFAULT / GENERIC / UNKNOWN PROVIDER * Unavailable Unavailable ALIASES , DEFAULT / GENERIC / UNKNOWN PROVIDER * Unavailable Unavailable ALIASES , DEFAULT / GENERIC / UNKNOWN PROVIDER * Unavailable Unavailable ALIASES , DEFAULT / GENERIC / UNKNOWN PROVIDER * Unavailable Unavailable ALIASES , DEFAULT / GENERIC / UNKNOWN PROVIDER * Unavailable Unavailable ALIASES , DEFAULT / GENERIC / UNKNOWN PROVIDER *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 wvFKycvt8LAheHYe6PG2oi3SyrEMH0lLhZ3DqFm4cHPlrZtPuM9SGOZanX4ma7KLNxZJKMEDku5gj5tE 501RX1J3Y/yWlCldJ4PP6TQkpLTRIfTp/2MvntOjJgi33LPR4qpj2hr3XTQw2nFFEFr+358Aql8L0ntu KEIye0YWqvAv8APIxnCc0XpDu1Ml3tOvgseAHt67kL HB4XiiqABzaJQopNv6480GKVOksIOjq5rM5aJ0B3+po9d9LNtFc6s2Or7A3ALtx5d2b+/tbMv9ztjr6H zYmNXT613nWJW1olanlBcnInoK1wN8jYJFK5T1WNKL5/MA+yW25I6gcv7/hZyb3G9lu9LzWFy6uHTxdm SkkEbzETxz94V4d3faxsJ9M1LHe8Ygl6P94W7LfJJe A2VbLukungCJAz8Dx012WL+b3X1E0J/aOkEf4THonfaqQhkStD+myg6a8Rggc/zy7tmv0sU/kIV0ZENQ PATTERN DUPLICATOR+6TI3joWmvphmo7+c9nu+/PIW/Y/2GLoHhjQdlH1+Os0SKiUUke/lXt2wqlkjSAMhOwr5+QmICz14/ [file] cgCZVejFGEdQ1g/sales officer//JV431gx1bv2/lL+BAKDU/o9rC+9Y/304bXuVsi+EnKtwPaYa+G7UVOYQVWcJ [file] rbXfAgTdBnbkhSu55fsewL/crystal grinder/Ha8C3BBKZzqsb5dxEtUsGoyEc3LocVXSd3+UoTpHRMYxSw4gXydkm [file] be9O3YwBjWOEe1UzOBQ9e14hcyhE/b9IirBnMpKQk81U8CBT9bUcnQw4h4+a8OP3UjZMAlbyvF3s/account group supervisor 3jCjkt2DGJXwRAVNIla82iOvRdeUcjwWSUUv9jk3ehLtlVuBGCZKgeXkY+G4hTxJXR3TZHZAlXzwY8y0 GSeE40x8prSVxCWcb68Cm9oEDDlerUtfk0NiucmZ2D KJ6uVocaTj6R3h25mV4mygEjlOeVNO3C8G8yQYr1xnU6Yrpg1A8vebiq10VPY9FC+Karen+MW31yy8IZ2I [file] tv2xOocKbCEA4TCDfvYs4Qqabpf5/folder seamer/JLbO4fgOXdAJqiGwR+IF2czP1a5dSABth72BgH8qMVzfiv9 [file] ThNcMuylVuaa8oek1zuoPRVxT5BLh4CEaQDp+2/file clerk data entry [file] ZuclknK8KsAOdetFl5zunD+Stereo Compiler+moa4Fn8EeRmUqlGwi0MeaVK5qhB/0p4m+Y0GBX2164qV0unKr2JDn Hklo++iRkrt+sZnNj05CoxZUd2nI+fZZtw08kuuY4s GH1nH5DSe7YBeoGVW2VwpACSukvsRyTkqeOV/03SNshBGP9gQR/SNAVLAXqIOf7ocbXvWOKmP+3AvRQt YcWsIIkrUBdWXsDuEdzinFDg2bBY6VJ6jHl18G4T6xwtf4hdGb2qK5g6loY1mVU8FvAyWUcobQvHmhcG SxMIQkDU3gCKzghElUyCs4ZBvqlvBieU7hpJi1pZw3 /gs8It2IRndLneHkCQhEBawhY4z8edU9+2ywBSgX415Snb/RG3A4ZFbnuB797taKeeFdB1gmRf1KJ41v 0CBXWkfMromNS9pSkjlXlwHgbkJsYFERSMJXp9fuo+UTjVzb7qMvvX94yc9Ecd0nvirEqAWjgEI8g6eB iUi9RJ0DtR+R0k+mUwkEDkoEU/MlsfG5K6CeWgmrhV ABf0ucboW+GPenzfkURoy/pvlHLyaizru7rH7Slcc5NWU6fa4MiW3QMLhdbXKLomxFg/KtX5Pbd4o/C9 dxhGXZa+r6tkH06IvxN92EKJlWGIYuEHNclRZchZ6dMBh2df6ryqwcHI244XnG++cBggQwlDxE0b62oH IexCWFeLi1Cv78UfbwZPggGGQ8wD1wre9wRBYArRv/ dQns9ySRreEdcIchSDt5Qwz/llBqSAy0ltdWNZ4escB2u3OkRhENJ0IAkwJna4WJauhgIxp3iaQBCi+2 pu/PtPKjN1HLFEM0MkZcJ3dSh4ZRH5o1xCRG+PlR3zt3UdRvDj0SrT1+TFNulubLC16FQRu3unxG1PF5 UEk0yng1lurQd9cdHJOzkja5ySx/KIDk7YXbITjPQi Wlg/FOL9xzTj04vQF/MALTESE/4Sd3MKTbw/hp8Sov3MoUR6Fp2YBeYM2DHWaf/Rp9ikN/eIwh3od9m7Gglih [file] 98hjy5ofxVffa6qTE3qyApI8Mw7MqT6xKWcapJQDC2BA1v2It12fOR7rCsnr6Ru73gIJK8OwK0Q/b/director of strategy & mobile [file] yvyP/burner operator+o0eLd8+n4Iq4KZ8rZS1RyNpw3rGzgeiFKY4YBed9466w/6EZObnvId2kex2/Iyr7d9b0bvDZ [file] QG+Leeann+WFbgKlR7mdgXPt9rsT2J9o42nLI7+wduD9tOVIBb9Nm+S5k/WZK74Q+lmovkmPjhb7Cr0Z7Y w5UfR640afk+2s46q5US6l8DR1BK+TexYkBXQsR98G 4Igcit5n7YyYNy5OKFBnqnwej9AKPIDlS+foctgdFX0z2tKwfc1ww4Q9/c1zvgU0slIfoB67xJMRUrEr g+ZsNkV6+LQrlS/vg50ftWIctLxJO07fgkH5fgu0YtminKjLQOQVgD1YovE0etj8ZKCtM8u2S3jvlOVM cpF8ijMs97RH60PohbhRLIWw9VYGnREQDFCNa+L1KC u0+tKbljrQZ6zASJnZm+v3a5QmRxDkL70jBHtlQcdDxlAvN7Jy08Q0rhmQ2xRLuVaXBtJlYa6Vc0Fzw3 U5CI9f6YF+T0RHnEUHNt3jzEiZJymXQHwFlXgIN4MrCsCFcA1TqHb8Joh24ERE7fFgpcuGms4wWUZV1T CJ/b+5sr+glrcLOkldFgIh2a0v6rudSa4aawk7MmRX qkXapNhjLUntBODN2TO/8azjPY+Gbv/ib4cr3/4JBQew+bhzUUMEYKTopgnaemTEsVAd1zFp1At4PH5b TobrJme0iMwk0E0aM1BiVyLCvQD37k+t3lImrNJzcZSt1ShX/gBQNbyKLfG+JyaWiiIKg71W38jX02aN zQL55f7/VrixvS1gkuZgfh7gF3Kdhf78aAf7mTucJh 98Lhn5ixJSoq2xuToNqru5xJWh3djFqfN/bzL9UE04KJ+13sYL1IQSD25e0uIBrffbF2Nxb4zCe7ageQ lz1c/LiVo2w4verSEPwai+6stPliGvaUIo5lweb0vqh8iXLvFts2DtMJuIgZZv0lVDn45GYnEZ8WQy5r dei/XZQuWzuGg3oytb4m7me9a5EX1FUZ3dZPYrNsN0 X/RKKELJXm3KfZ3b7tLukd4TILJWU/4wV6w62pF8uiSBQo/bej6WWMsjAndNOWmRbUcfghffTRvtQPLE m+2ps0zZrGe78Tl8NeTSZg1CDIQ/Uu8bQia3CnltM8TOaa6La3rB6MT4O/0zLGYZ0u8cF/evp operations+u8hDEI9 [file] ybVP9r/A7Kt3uK2L955fKTfqR/bZS4TVSloi57AAA/umE9XJCn9j3WlwTGLJmcgpy/Biju/2ryTsVAWEZ Fks/uPBiAnGuAz/+xa6v/16H8cwQ5Z2bQODl2SJ4lgmO/+c7j5j9q/Vf6t8m+V//md2G8VOjjaOTNrSR xCkoBdmB7HL7a2s51kqGIXdWppQBhZveovUWvYXtv2 UiBvtMY9O/n1SEsqaRNWzyKyWBw/S876zJvhLPXdUWJmJveYlRYXROIhYXdF9yqGfi/olmylppbfCX65 BGvkj/YmWlU2/rPpqNqveHFA6gQh67A3aPa6ntcVeav685Dc+Customer Operations Manager/Te3K+XHhbKGYOSaS5PyLaoMOklzv [file] zH68OnPmfd/folder seamer+eGQkegw3RZlMXsXB148zCLtDC3on6vNp5HHUY87Vn5BqzjJlfswJ923BRVfd2M9/p [file] HlnJCPP7DkbYReNxZKS0waDtlS9XWI4hi2XtEX3Va3SffkK4bhQwRXi0PAW5XXsLWrTfHZ4S ID Date Data Source [id number] 07/08/2020 03:48:41 PM EST [facility], PCName: Fercho trish WatermanDOB: 1960Provider: Karen Tovar: 07/08/2020 Chief ComplaintNeck pain and back pain Chief Complaint 2NYSW VAS PAIN Established: ZULEMA completing section: TIM ال[place]قي History of Present IllnessA Urine Drug Screen was ordered for Tyshawn Ray and collected on site today 07/08/2020. Creatinine has been ordered as well for specimen validity, not for kidney function. Preliminary UDS results are not final and should not be used to determine patient care or plan of treatment. Initially a qualitative immunoassay screen will be done. Please note this is not a dip test. Any positive findings or negative findings that are out of compliance will be further tested with a more comprehensive quantitative confirmation LCMS study. It is part of the normal prescribing protocol of controlled substances and is considered standard of care. Recent test/procedures: Patient was asked and denies having any tests since their last visit. Patient was asked and denies being seen by any Physicians since their last visit. At today's visit patient presents with their Self Implanted Devices The patient has the following implanted device(s): pacemaker. The patient does not have a glucose monitoring device. Patient is retired. The patient is being seen for a follow-up. Pain Duration: years Condition type: The patient is being seen for a chronic condition. PAIN LOCATION: the pain is located in the neck, the pain is located in the low back and the pain is located in the mid-back . REVIEW OF PAST DIAGNOSTICS: have included: MRI, x-rays and bone scan. PAST TREATMENT has included: ANTICONVULSANTS (effective) Includes Topamax., MUSCLE RELAXANTS (effective) Includes Cyclobenzaprine ., OPIOID ANALGESICS (effective) Includes Hydrocodone and Oxycodone. INTERVAL EVENTS: include no significant change impacting patients medical condition. Patient will be moving to [place] (or splitting his time between [place] and [place]). No changes to health history. ASSOCIATED SYMPTOMS: include difficulty walking and muscle pain/spasm, but not radiating, no fecal incontinence, no extremity weakness and no urinary incontinence. FUNCTIONAL LIMITATIONS: The patient's functional status is limited as follows: ability to participate in hobbies and perform housework. MEDICATION SIDE EFFECTS experienced by patient are: no known medication side effects. Review of SystemsConstitutional: Normal. Eyes: Normal. ENT: normal. Cardiovascular: Normal. Respiratory: Normal. Gastrointestinal: Normal. Genitourinary: Normal. Musculoskeletal: arthralgias, neck pain and lower back pain. Integumentary: Normal. Neurological: Normal. Psychiatric: Normal. Endocrine: Normal. Hematologic/Lymphatic: Normal. Patient maintains at today's visit there has been no change in his/her hematologic history. I reviewed the above with the patient and I feel the ROS to be negative/normal. Active Problems 1. Carpal tunnel syndrome (354.0) (G56.00) 2. Cervical postlaminectomy syndrome (722.81) (M96.1) 3. Cervical radiculopathy (723.4) (M54.12) 4. Chronic pain (338.29) (G89.29) 5. Encounter for long-term (current) use of medications (V58.69) (Z79.899) 6. History of heart surgery (V15.1) (Z98.890) 7. Implantable Cardioverter-Defibrillator 8. Joint pain, knee (719.46) (M25.569) 9. 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 Low back pain (724.2) (M54.5) 11. Lumbar herniated disc (722.10) (M51.26) 12. Myofascial pain syndrome (729.1) (M79.18) 13. Postherpetic neuralgia (053.19) (B02.29) 14. 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) Allergies No Known Drug Allergies Updated By: Florentino Young; 05/09/2016 8:56:03 AMDenied Adhesive Tape Recorded By: Rachell Bradford; 10/09/2011 12:42:04 PM Iodinated Contrast Media Recorded By: Leonid Gillespie; 09/02/2015 11:01:30 AM Lat ex Recorded By: Rachell Bradford; 10/09/2011 12:42:04 PM Current Meds Aspirin 81 MG TABS;Therapy: (Recorded:12Oek8304) to RecordedLD 09/24/17 am Budeprion SR 100 MG TB12;Therapy: (Recorded:44Xrv2670) to Recorded Cyclobenzaprine HCl - 10 MG Oral Tablet; take 1 tablet by mouth three times a day ASNEEDED FOR MUSCLE SPASM MDD:3 Requested for: 20Mdk5725; Last Rx:88Upg0981Czqryft Fish Oil CAPS;Therapy: (Recorded:15Oct2011) to Recorded Flonase SUSP;Therapy: (Recorded:15Oct2011) to Recorded HYDROcodone-Acetaminophen 10-325 MG Oral Tablet; TAKE 1 TABLETS EVERY 8-12HOURS NEEDED FOR PAIN. MDD:3;Therapy: 17Sep2011 to (Evaluate:43Yfs0995) Requested for: 15Jun2020; LastRx:15Jun2020 OrderedLD pm 04/17/2020 LaMICtal 25 MG Oral Tablet;Therapy: (Recorded:15Oct2011) to Recorded Lidocaine 5 % External Patch; APPLY 1-2 PATCH TO AFFECTED AREA 12 HRS ON, 12HRS OFFCode D, Dx: 722.81 MDD:2Code D, Dx: 722.81;Therapy: 07Vpw3709 to (Evaluate:16Jan2015) Requested for: 20Jul2014; LastRx:20Jul2014 Ordered Magnesium 500 MG CAPS; One tablet daily MDD:1;Therapy: 29Dec2013 to (Evaluate:04Jul2019) Requested for: 05Jan2019; LastRx:05Jan2019 Ordered Multi Vitamin/Minerals TABS;Therapy: (Recorded:15Oct2011) to Recorded Naproxen 500 MG Oral Tablet; TK 1 T PO BID WITH FOOD MDD:2;Therapy: 08May2018 to (Evaluate:24Aug2020) Requested for: 26Feb2020; LastRx:27Ehs6018 Ordered Omeprazole 20 MG Oral Capsule Delayed Release; TAKE 1 CAPSULE DAILY. MDD:1 Requested for: 05Apr2020; Last Rx:05Apr2020 Ordered Simvastatin 10 MG Oral Tablet;Therapy: (Recorded:15Oct2011) to Recorded Topiramate 200 MG Oral Tablet;Therapy: (Recorded:12Jun2018) to Recorded Vitamin B-1 100 MG TABS;Therapy: 59Xme7508 to Recorded Voltaren 1 % GEL; 4gms to affected area 4 times a day;Therapy: 16Oct2012 to (Evaluate:17Nov2014) Requested for: yz8394; LastRx:90Kkw7231 Ordered Past Medical History History of Bradycardia (427.89) (R00.1) Denied: History of blood coagulation disorder History of low back pain (V13.59) (Z87.39) History of syncope (V15.89) (Z87.898) History of Neck pain (723.1) (M54.2) Denied: History of Taking Blood Thinners Surgical History Denied: History of Cardioverter defibrillator insertion History of Neck Surgery fusion History of Permanent Pacemaker Type Family History Denied: Family history of No Significant Family History Social History Current non-drinker of alcohol (V49.89) (Z78.9) Currently On Disability Denied: History of Drug Use Marital History - Currently Never smoker VitalsVital Signs Recorded: 11Pvh5137 02:05PM Height: 5 ft 11 inWeight: 215 lb BMI Calculated: 29.99BSA Calculated: 2.17Systolic: 138, SittingDiastolic: 74, SittingHeart Rate: 60Respiration: 16Temperature: 96.7 FHeight measured w/wo shoes: w/shoesPain Scale: 7 Physical ExamGeneral: The patient is a well nourished/well developed, male, heavy set, who is in no acute distress and appears stated age. Eyes: Lids are atraumatic, no lesions, sclerae are anicteric. Ears, Nose, Mouth, Throat: Patient wearing a mask due to COVID-19. Respiratory: Normal chest expansion and respiratory effort. Gait and Station: Gait was normal. Skin: Warm, dry, acyanotic. Psychological: Alert and oriented to person, place and time. Mood and affect are pleasant and appropriate. Judgement intact. Insight normal without delusions or hallucinations. Denies suicidal/homicidal ideation. Results/DataThis patient had a urine drug screen on 02/08/20. Results are in compliance. Assessment 1. Chronic pain (338.29) (G89.29) 2. Cervical postlaminectomy syndrome (722.81) (M96.1) 3. Low back pain (724.2) (M54.5) 4. halfway current use of opiate analgesic (V58.69) (Z79.891) Plan 1. Renew: HYDROcodone-Acetaminophen 10-325 MG Oral Tablet ([place]); TAKE 1 TABLETS EVERY 8-12 HOURS NEEDED FOR PAIN. MDD:3LD pm 04/17/2020 2. UDS-LAB Medicare / Commercial ([facility] Urine Drug [facility]); [Do Not Release]; Specimen Source:Urine; Status:In Progress - Specimen/Data Collected; Done: 08Jul2020 3. Follow-up in 2 months Follow Up Follow-up Status: Hold For - Scheduling Requested for: 80Lkd7186Mlmkdakw Appointment for 15 or 30 minutes : Schedule 15 minute appointment Medication:. [facility] CARE REP Information: CARE REP was consulted by my designee and I have reviewed the information presented to me and find no aberrant compliance issues. Patient has been informed. General Medications Prescribed: CYCLOBENZAPRINE . GENERAL MEDICATIONS: I advised the patient today/previously regarding treatment with the above medication(s). The risks, benefits, common side effects and alternative treatments were discussed with the patient. The provider verbalized with the patient. The patient verbalized understanding and was told to call if there were any untoward effects. Controlled Substance Prescribed: HYDROCODONE . CONTROLLED SUBSTANCE INFORMATION: I advised the patient today/previously regarding treatment with the above controlled substance and/or narcotic. The patient was then informed of the risks, benefits, and alternatives of the narcotic. The risks discussed included but were not limited to physical and/or psychological dependence, tolerance of the medication, drowsiness, sleepiness, balance/coordination problems, confusion, allergic reaction or any other abnormal symptoms. The patient was advised and agreed to use the medication only as prescribed, and not to drive, or operate heavy equipment or machinery. The patient understood and consented to both undergo a narcotic/opiate regimen and agreed to sign and comply with all of the [facility] terms of a controlled substance treatment and agreement.NSAIDS Prescribed: NAPROXEN . NSAIDS: I advised the patient today/previously regarding treatment with the above NSAIDS. Patient denies history of and is aware of rare but serious risk of kidney, cardiovascular, and gastrointestinal complications. UDS: This is an established patient and is on ongoing opioid therapy. A UDS is being obtained today, the patient has previously consented to UDS as part of the Controlled Substance and Treatment Agreement. The reason for today's UDS is: patient was selected at random and scored as low risk on the opioid risk assessment. Creatinine has been ordered as well for specimen validity, not for kidney function. Preliminary UDS results are not final and should not be used to determine patient care or plan of treatment. Initially a qualitative immunoassay screen will be done. Any positive findings or negative findings that are out of compliance will be further tested with a more comprehensive quantitative confirmation LCMS study. It is part of the normal prescribing protocol of controlled substances and is considered standard of care. Treatment includes: FOLLOW UP: The patient should have a follow up visit in 2 months. Discussion/SummaryPleasant 59-year-old male patient with chronic cervical and lumbar pain. He is currently stable on medications at this time and defers any other treatment modalities. Patient will follow up in 2 months time, sooner if needed. [employer] DisclaimerNYSWC [employer] Disclaimer: This document was dictated and electronically signed using [employer] software. A reasonable attempt at proof reading has been made to minimize errors. Please call with any questions. Signatures Electronically signed by : Edith Tovar NP; Jul 08 2020 2:12PM EST (Author) Electronically signed by : Brandie Gonzalez MD; Jul 08 2020 3:48PM EST Name Value Range Interpretation Code Description Data Paula rce(s) Supporting Document(s) ID Date Data Source [id number] 07/08/2020 10:00:00 AM EST [facility] Name Value Range Interpretation Code Description Data Paula rce(s) Supporting Document(s) SARS coronavirus 2 RNA Not Detected [facility] This lab was ordered by [facility] [place] [facility] and reported by [facility]. ID Date Data Source [id number] 06/14/2020 12:00:00 AM EST [facility] Name Value Range Interpretation Code Description Data Paula rce(s) Supporting Document(s) SARS-CoV-2 (COVID-19) RNA [Presence] in Respiratory specimen by AMI with probe detection Not Detected [facility] This lab was ordered by [facility] and reported by [employer] [facility]. ID Date Data Source [id number] 05/30/2020 09:30:00 AM EST [facility] Name Value Range Interpretation Code Description Data Paula rce(s) Supporting Document(s) Follow Up [facility] DFKHJb4aGzUQQuLqQVJtYvwSOSqsNCgjEAXlW3P2COseZn4GHNyritHnYSXsJk2+QSRzLM5tbu4vREHl gMy 0mRPWdPpccV1BzRYQql12WMARxKQhAEdLsKwFpWpZuCQR1AFIcKWD6LwRvVjpjZK9lQSF2GFLrCSqtBE JePOTpECGsTNAsSm7hUIhqIKemOh4NBK9sm2QaUDEbJWGuFpzZEDxcJShvMHLyYWDrGXBfY172foSxER 2MjRIwFMw0ZZRmSsN7IGMyBmQ1UTGmKzFnAuYeANKe Z4Rgz108ibDxocZ6JA9CN3MqUQZ0VTo7D6diTzHpYQNhJFLtLI5bHjU3JYJrAx8EvHebEOPeEMCyXu0W uLt1YOF0XZPpZm5+Pj4+Tj0khxWjGzlGPIDuJD8lgd08YN0XjLDjJK6UWIudI45yJAzxSr47CYlkUAMa OhYnXBw2Gr6dKdRmi1JmF9RxWJc3R6yIYiszT5XcCQ vgOU5fHFK2FXLrYd8+Bx6uUSJzJD71SLVcLVSIL6YxapBcbiJoZSp9LKJqZr6+Oz6gbjKqOaaRCNJxBM 5uru31YI3HXN6yiBzxPcNzPHo2J68pjJXbZ7ssXvMxS8BsbZtqGRJmLG6bC9NnANfpSGJbHX0csxZmsN 9UeXj1AXYxCg0DaIZ2SIMgC42mJHLtCRZELWWur9Tc MJ5Gx4zrqzIzFYVeXA3UYZArZ7YLL1VvK7nyaTjhGXKnYM9ZXWrcmPJfWOt9RM3GyGXmZBSuY62ggM2v PG92RMi+NfP1iyZznD6CwQgmk7RMPD/S1lqjQYJ4LUycWCLS1VXQqmxR5H4vfmKHHGNd4Qs2f2x2b+CD DjohyOb/rDxVu8/WSu27/Q5vt13G9ox0/YiKxJCf79 J5VM1zJHKJCYWBLDWEN7Z92WwlB8gBXmzKA5qY3ZRlJFT8XJKSKQMoWZ27U+1bVjpKSiZ+OvnW5uo9OG QTqbMGXBLc7Otv/3PW8GqXNtvARTNejSShU8MajA0D4zHviB+Y5a4xvGUrZyXQc3IQy/RTX3XYIZZXEM 7NAP/SYNLWlDLQ3fBxNYQ+jhCHR1CHQIPFDYXXMNOZ [file] Wq9WB1QAkBb1ZjUDWpM/VnwVFAuQNXfee+hSAKVE2Ky/i6IS/dfOhkdqhAumeUwBj+uRPa3hMSdf/Luis Enrique [file] /dfbf40EDhsXCAv2C3Dwnt4+Z8abs85RfTjuXIsfQp8+Ul2r4SVsxpe+q2ssnte7muF5/Tigist vjCC5cPx39PeGRlHOF6thwodhLj35FiNSREMj6QDIvAUBLwFxkE1o6XyIn79mwlspoP1IS4QXAWdeb4+ jpeCJjErx2nY+LUIS ENRIQUE+W0Hw1NlE3+2yxfA+5AWOoYbyY [file] +pQRMUVV0GqdA6pMpjS/nY3ly4rFBtGsvFsVqks+Customer Operations Manager [file] [place]+zKKjPYVlBFffbCDM02Ri0fq0L2Xvz6H7k3mp07 [file] cosmetics supervisor+sUv+I1EBI+7pj436Wh9FAmKKN99lsWvUg1FqZbZyXrP2zriBiBlUtEgR/WFqrOhqSxXhU+zEESqL [file] fS7AkUyvJTW3+NYCC+cc+Cheng+rsnuWal5K2TCY/g/B 6d7rlEZVQn6cRZIRwwKmXvgxbi9osMH4W/PLTG6r9ecSkWk/VSMwvkb5HGPQfkklWwY07Ibd786CENZw 48sECUgGvVH1lSg/l9ok+p/paper finisher/hi0QDkspPcglxd6gUkSg2AwYollYUzgFNohGK0cACmPzzocF7FUR9 [file] AKPnDO2TTPJLB6V= ID Date Data Source [id number] 05/11/2020 12:00:00 AM EST [facility] Name Value Range Interpretation Code Description Data Paula rce(s) Supporting Document(s) SARS coronavirus 2 Ag [facility] This lab was ordered by [facility] and reported by [facility]. ID Date Data Source [id number] 04/18/2020 03:41:23 PM EST [facility] PCName: [facility]: 1960Provider: Karen Tovar: 04/18/2020 Chief ComplaintNeck pain and back pain Chief Complaint 2NYSW VAS PAIN Established: ZULEMA completing section: Chandler DUMONT History of Present IllnessRecent test/procedures: Patient was asked and denies having any tests since their last visit. Patient was asked and denies being seen by any Physicians since their last visit. The patient was last seen by a [facility] provider on 02/08/2020. At today's visit patient presents with their Self Implanted Devices The patient has the following implanted device(s): pacemaker. The patient does not have a glucose monitoring device. Patient is not currently working. 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 The patient is being seen for a follow-up. Pain Duration: appx 18 years Pain Score: a current pain level of 7/10. Condition type: The patient is being seen for a chronic condition. PAIN LOCATION: the pain is located in the neck, the pain is located in the low back and the pain is located in the mid-back . REVIEW OF PAST DIAGNOSTICS: have included: MRI, x-rays and bone scan. PAST TREATMENT has included: ANTICONVULSANTS (effective) Includes Topamax., MUSCLE RELAXANTS (effective) Includes Cyclobenzaprine ., OPIOID ANALGESICS (effective) Includes Hydrocodone and Oxycodone. INTERVAL EVENTS: include no significant change impacting patients medical condition. Patient will be moving to [place] (or splitting his time between [place] and [place]). ASSOCIATED SYMPTOMS: include difficulty walking and muscle pain/spasm, but not radiating, no fecal incontinence, no extremity weakness and no urinary incontinence. FUNCTIONAL LIMITATIONS: The patient's functional status is limited as follows: ability to participate in hobbies and perform housework. MEDICATION SIDE EFFECTS experienced by patient are: no known medication side effects. Review of SystemsConstitutional: Normal. Eyes: Normal. ENT: normal. Cardiovascular: Jerilyn l. Respiratory: Normal. Gastrointestinal: Normal. Genitourinary: Normal. Musculoskeletal: lower back pain, midback pain and neck pain. Integumentary: Normal. Neurological: Normal. Psychiatric: Normal. Endocrine: Normal. Hematologic/Lymphatic: Normal. Active Problems 1. Carpal tunnel syndrome (354.0) (G56.00) 2. Cervical postlaminectomy syndrome (722.81) (M96.1) 3. Cervical radiculopathy (723.4) (M54.12) 4. Chronic pain (338.29) (G89.29) 5. Encounter for long-term (current) use of medications (V58.69) (Z79.899) 6. History of heart surgery (V15.1) (Z98.890) 7. Implantable Cardioverter-Defibrillator 8. Joint pain, knee (719.46) (M25.569) 9. 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 Low back pain (724.2) (M54.5) 11. Lumbar herniated disc (722.10) (M51.26) 12. Myofascial pain syndrome (729.1) (M79.18) 13. Postherpetic neuralgia (053.19) (B02.29) 14. 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) Allergies No Known Drug Allergies Updated By: Florentino Young; 05/09/2016 8:56:03 AMDenied Adhesive Tape Recorded By: Rachell Bradford; 10/09/2011 12:42:04 PM Iodinated Contrast Media Recorded By: Leonid Gillespie; 09/02/2015 11:01:30 AM Latex Recorded By: Rachell Bradford; 10/09/2011 12 :42:04 PM Current Meds Aspirin 81 MG TABS;Therapy: (Recorded:53Aae3910) to RecordedLD 09/24/17 am Budeprion SR 100 MG TB12;Therapy: (Recorded:28Cdv5422) to Recorded Cyclobenzaprine HCl - 10 MG Oral Tablet; take 1 tablet by mouth three times a day ASNEEDED FOR MUSCLE SPASM MDD:3 Requested for: 57Opw8686; Last Rx:98Lnt6097Izguosv Fish Oil CAPS;Therapy: (Recorded:36Vfk3683) to Recorded Flonase SUSP;Therapy: (Recorded:15Oct2011) to Recorded Horizant 300 MG Oral Tablet Extended Release; one tablet at evening meal MDD:1;Therapy: 30Dat6789 to (Evaluate:07Oct2017) Requested for: 15Ofg3784; LastRx:09Jul2017 Orderedlong time HYDROcodone-Acetaminophen 10-325 MG Oral Tablet; TAKE 1 TABLETS EVERY 8- 12HOURS NEEDED FOR PAIN. MDD:3;Therapy: 17Sep2011 to (Evaluate:17Apr2020) Requested for: 18Mar2020; LastRx:01Cmx5118 OrderedLD pm 04/17/2020 LaMICtal 25 MG Oral Tablet;Therapy: (Recorded:86Crq1596) to Recorded Lidocaine 5 % External Patch; APPLY 1-2 PATCH TO AFFECTED AREA 12 HRS ON, 12HRS OFFCode D, Dx: 722.81 MDD:2Code D, Dx: 722.81;Therapy: 24Fle5439 to (Evaluate:01Toq7972) Requested for: 71Cav4044; LastRx:60Uey2655 Ordered Magnesium 500 MG Oral Capsule; One tablet daily MDD:1;Therapy: 60Xue7186 to (Evaluate:04Jul2019) Requested for: 21Ayw4570; LastRx:45Qtc2615 Ordered Multi Vitamin/Minerals TABS;Therapy: (Recorded:15Oct2011) to Recorded Naproxen 500 MG Oral Tablet; TK 1 T PO BID WITH FOOD MDD:2;Therapy: 08May2018 to (Evaluate:24Aug2020) Requested for: 26Feb2020; LastRx:26Feb2020 Ordered Omeprazole 20 MG Oral Capsule Delayed Release; TAKE 1 CAPSULE DAILY. MDD:1 Requested for: 05Apr2020; Last Rx:05Apr2020 Ordered Simvastatin 10 MG Oral Tablet;Therapy: (Recorded:15Oct2011) to Recorded Topiramate 200 MG Oral Tablet;Therapy: (Recorded:12Jun2018) to Recorded Vitamin B-1 100 MG Oral Tablet;Therapy: 44Rxw3512 to Recorded Voltaren 1 % GEL; 4gms to affected area 4 times a day;Therapy: 16Oct2012 to (Evaluate:17Nov2014) Requested for: 20Jul2014; LastRx:20Jul2014 Ordered Past Medical History History of Bradycardia (427.89) (R00.1) Denied: History of blood coagulation disorder History of low back pain (V13.59) (Z87.39) History of syncope (V15.89) (Z87.898) History of Neck pain (723.1) (M54.2) Denied: History of Taking Blood Thinners Surgical History Denied: History of Cardioverter defibrillator insertion History of Neck Surgery fusion History of Permanent Pacemaker Type Family History Denied: Family history of No Significant Family History Social History Current non-drinker of alcohol (V49.89) (Z78.9) Currently On Disability Denied: History of Drug Use Marital History - Currently Never smoker VitalsVital Signs Recorded: 18Apr2020 12:39PM Height: 5 ft 10 inWeight: 210 lb BMI Calculated: 30.13BSA Calculated: 2.13Systolic: 120, SittingDiastolic: 80, SittingHeart Rate: 68Respiration: 16Temperature: 97.5 FHeight measured w/wo shoes: w/o shoesPain Scale: 7 Physical ExamGeneral: The patient is a well nourished/well developed, male, heavy set, who is in no acute distress and appears stated age. Eyes: Lids are atraumatic, no lesions, sclerae are anicteric. Ears, Nose, Mouth, Throat: Patient wearing a mask due to COVID-19. Respiratory: Normal chest expansion and respiratory effort. Gait and Station: Gait was normal. Skin: Warm, dry, acyanotic. Psychological: Alert and oriented to person, place and time. Mood and affect are pleasant and appropriate. Judgement intact. Insight normal without delusions or hallucinations. Denies suicidal/homicidal ideation. Results/DataThis patient had a urine drug screen on 02/08/20. Results are in compliance. Assessment 1. Chronic pain (338.29) (G89.29) 2. Cervical postlaminectomy syndrome (722.81) (M96.1) 3. Low back pain (724.2) (M54.5) 4. Encounter for long-term (current) use of medications (V58.69) (Z79.899) Plan 1. Renew: HYDROcodone-Acetaminophen 10-325 MG Oral Tablet (Reyno); TAKE 1 TABLETS EVERY 8-12 HOURS NEEDED FOR PAIN. MDD:3LD pm 04/17/2020 2. Follow-up in 2 months Follow Up Follow-up Status: Hold For - Scheduling Requested for: [id number] Appointment for 15 or 30 minutes : Schedule 15 minute appointment Medication:. NITIN CARE REP Information: CARE REP was consulted by my designee and I have reviewed the information presented to me and find no aberrant compliance issues. Patient has been informed. Controlled Substance Prescribed: HYDROCODONE . CONTROLLED SUBSTANCE INFORMATION: I advised the patient tod ay/previously regarding treatment with the above controlled substance and/or narcotic. The patient was then informed of the risks, benefits, and alternatives of the narcotic. The risks discussed included but were not limited to physical and/or psychological dependence, tolerance of the medication, drowsiness, sleepiness, balance/coordination problems, confusion, allergic reaction or any other abnormal symptoms. The patient was advised and agreed to use the medication only as prescribed, and not to drive, or operate heavy equipment or machinery. The patient understood and consented to both undergo a narcotic/opiate regimen and agreed to sign and comply with all of the [facility] terms of a controlled substance treatment and agreement. Treatment includes: FOLLOW UP: The patient should have a follow up visit in 2 months. Discussion/SummaryPleasant 59-year-old male patient with chronic cervical and lumbar pain. He is currently stable on medications at this time and defers any other treatment modalities. He continues to participate in a home exercise and stretching program which I have encouraged him to continue. No changes made today. Patient will follow up in 2 months time, sooner if needed. [employer] DisclaimerNYSWC [employer] Disclaimer: This document was dictated and electronically signed using [employer] Speaking software. A reasonable attempt at proof reading has been made to minimize errors. Please call with any questions. Signatures Electronically signed by : Edith Tovar NP; Apr 18 2020 12:57PM EST (Author) Electronically signed by : Brandie Gonzalez MD; Apr 18 2020 3:41PM EST Name Value Range Interpretation Code Description Data Paula rce(s) Supporting Document(s) ID Date Data Source [id number] 02/09/2020 10:27:47 AM EDT [facility], PCName: Fercho trish MurraymanDOB: 1960Provider: Karen Tovar: 02/08/2020 Chief ComplaintNeck pain and back pain Chief Complaint 2NYSW VAS PAIN Established: MA completing section: Yuki DUMONT History of Present IllnessA Urine Drug Screen was ordered for Tyshawn Ray and collected on site today 02/08/2020. Creatinine has been ordered as well for specimen validity, not for kidney function. Preliminary UDS results are not final and should not be used to determine patient care or plan of treatment. Initially a qualitative immunoassay screen will be done. Please note this is not a dip test. Any positive findings or negative findings that are out of compliance will be further tested with a more comprehensive quantitative confirmation LCMS study. It is part of the normal prescribing protocol of controlled substances and is considered standard of care. Recent test/procedures: The patient was last seen by a [facility] provider on 11/09/2019. At today's visit patient presents with their Self Patient is currently working. 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 The patient is being seen for a follow-up. Pain Duration: 18 years Pain Score: a current pain level of 7/10. Condition type: The patient is being seen for a chronic condition. PAIN LOCATION: the pain is located in the neck, the pain is located in the low back and the pain is located in the mid-back . REVIEW OF PAST DIAGNOSTICS: have included: MRI, x-rays and bone scan. PAST TREATMENT has included: ANTICONVULSANTS (effective) Includes Topamax., MUSCLE RELAXANTS (effective) Includes Cyclobenzaprine ., OPIOID ANALGESICS (effective) Includes Hydrocodone and Oxycodone. INTERVAL EVENTS: include no significant change impacting patients medical condition. Patient may be moving to [place] (or splitting his time between [place] and [place]). ASSOCIATED SYMPTOMS: include difficulty walking and muscle pain/spasm, but not radiating, no fecal incontinence, no extremity weakness and no urinary incontinence. FUNCTIONAL LIMITATIONS: The patient's functional status is limited as follows: ability to participate in hobbies and perform housework. MEDICATION SIDE EFFECTS experienced by patient are: no known medication side effects. Review of SystemsConstitutional: Normal. Eyes: Normal. ENT: normal. Cardiovascular: Normal. Respiratory: Normal. Gastrointestinal: Normal. Genitourinary: Normal. Musculoskeletal: arthralgias, neck pain and lower back pain. Integumentary: Normal. Neurological: Normal. Psychiatric: Normal. Endocrine: Normal. Hematologic/Lymphatic: Normal. Patient maintains at today's visit there has been no change in his/her hematologic history. I reviewed the above with the patient and I feel the ROS to be negative/normal. Active Problems 1. Carpal tunnel syndrome (354.0) (G56.00) 2. Cervical postlaminectomy syndrome (722.81) (M96.1) 3. Cervical radiculopathy (723.4) (M54.12) 4. Chronic pain (338.29) (G89.29) 5. Encounter for long-term (current) use of medications (V58.69) (Z79.899) 6. History of heart surgery (V15.1) (Z98.890) 7. Implantable Cardioverter-Defibrillator 8. Joint pain, knee (719.46) (M25.569) 9. halfway current use of opiate analgesic (V58.69) (Z79.891) 10. Low back pain (724.2) (M54.5) 11. Lumbar herniated disc (722.10) (M51.26) 12. Myofascial pain syndrome (729.1) (M79.18) 13. Postherpetic neuralgia (053.19) (B02.29) 14. 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) Allergies No Known Drug Allergies Updated By: Florentino Young; 05/09/2016 8:56:03 AMDenied Adhesive Tape Recorded By: Rachell Bradford; 10/09/2011 12:42:04 PM Iodinated Contrast Media Recorded By: Leonid Gillespie; 09/02/2015 11:01:30 AM Latex Recorded By: Rachell Bradford; 10/09/2011 12:42:04 PM Current Meds amLODIPine Besylate 2.5 MG Oral Tablet;Therapy: 28Apr2015 to Recorded Aspirin 81 MG TABS;Therapy: (Recorded:90Ukr9132) to RecordedLD 09/24/17 am Budeprion SR 100 MG TB12;Therapy: (Recorded:56Twh2946) to Recorded Cyclobenzaprine HCl - 10 MG Oral Tablet; take 1 tablet by mouth three times a day ASNEEDED FOR MUSCLE SPASM MDD:3 Requested for: 85Gkz6729; Last Rx:60Pyn1991Infdrrb Fish Oil CAPS;Therapy: (Recorded:15Oct2011) to Recorded Flonase SUSP;Therapy: (Recorded:15Oct2011) to Recorded Horizant 300 MG Oral Tablet Extended Release; one tablet at evening meal MDD:1;Therapy: 73Ptq5142 to (Evaluate:07Oct2017) Requested for: 51Toz5362; LastRx:09Jul2017 Orderedlong t alison HYDROcodone-Acetaminophen 10-325 MG Oral Tablet; TAKE 1 TABLETS EVERY 8- 12HOURS NEEDED FOR PAIN. MDD:3;Therapy: 17Sep2011 to (Evaluate:65Bsh4486) Requested for: 27Snj3711; LastRx:94Oyj9670 OrderedLD 02/07/2020 PM LaMICtal 25 MG Oral Tablet;Therapy: (Recorded:57Rzy6117) to Recorded Lidocaine 5 % External Patch; APPLY 1-2 PATCH TO AFFECTED AREA 12 HRS ON, 12HRS OFFCode D, Dx: 722.81 MDD:2Code D, Dx: 722.81;Therapy: 50Uqx7756 to (Evaluate:83Gkh2602) Requested for: 20Jul2014; LastRx:20Jul2014 Ordered Magnesium 500 MG Oral Capsule; One tablet daily MDD:1;Therapy: 29Dec2013 to (Evaluate:04Jul2019) Requested for: 05Jan2019; LastRx:05Jan2019 Ordered Multi Vitamin/Minerals TABS;Therapy: (Recorded:15Oct2011) to Recorded Naproxen 500 MG Oral Tablet; TK 1 T PO BID WITH FOOD MDD:2;Therapy: 08May2018 to (Evaluate:23Apr2020) Requested for: 26Oct2019; LastRx:26Oct2019 Ordered Omeprazole 20 MG Oral Capsule Delayed Release; TAKE 1 CAPSULE DAILY. MDD:1 Requested for: 26Nov2019; Last Rx: Ordered Simvastatin 10 MG Oral Tablet;Therapy: (Recorded:15Oct2011) to Recorded Topiramate 200 MG Oral Tablet;Therapy: (Recorded:12Jun2018) to Recorded Vitamin B-1 100 MG Oral Tablet;Therapy: 29Dec2013 to Recorded Voltaren 1 % Transdermal Gel; 4gms to affected area 4 times a day;Therapy: 16Oct2012 to (Evaluate:17Nov2014) Requested for: 20Jul2014; LastRx:20Jul2014 Ordered Past Medical History History of Bradycardia (427.89) (R00.1) Denied: History of blood coagulation disorder History of low back pain (V13.59) (Z87.39) History of syncope (V15.89) (Z87.898) History of Neck pain (723.1) (M 54.2) Denied: History of Taking Blood Thinners Surgical History Denied: History of Cardioverter defibrillator insertion History of Neck Surgery fusion History of Permanent Pacemaker Type Family History Denied: Family history of No Significant Family History Social History Current non-drinker of alcohol (V49.89) (Z78.9) Currently On Disability Denied: History of Drug Use Marital History - Currently Never smoker VitalsVital Signs Recorded: 64Meb1937 01:17PM Height: 5 ft 10 inWeight: 210 lb BMI Calculated: 30.13BSA Calculated: 2.13Systolic: 122, SittingDiastolic: 68, SittingHeart Rate: 68Respiration: 15Temperature: 96.2 FHeight measured w/wo shoes: w/shoesPain Scale: 7 Physical ExamGeneral: The patient is a well nourished/well developed, male, heavy set, who is in no acute distress and appears stated age. Eyes: Lids are atraumatic, no lesions, sclerae are anicteric. Ears, Nose, Mouth, Throat: external ears and nose without trauma. Respiratory: Normal chest expansion and respiratory effort. Gait and Station: Gait was normal. Skin: Warm, dry, acyanotic. Psychological: Alert and oriented to person, place and time. Mood and affect are pleasant and appropriate. Judgement intact. Insight normal without delusions or hallucinations. Denies suicidal/homicidal ideation. Results/DataThis patient had a urine drug screen on 06/16/19. Results are in compliance. Assessment 1. Chronic pain (338.29) (G89.29) 2. Cervical postlaminectomy syndrome (722.81) (M96.1) 3. Low back pain (724.2) (M54.5) 4. terminologist current use of opiate analgesic (V58.69) (Z79.891) Plan 1. Stop: amLODIPine Besylate 2.5 MG Oral Tablet 2. Renew: HYDROcodone-Acetaminophen 10-325 MG Oral Tablet (Reyno); TAKE 1 TABLETS EVERY 8-12 HOURS NEEDED FOR PAIN. MDD:3LD 02/07/2020 PM 3. UDS-LAB Medicare / Commercial ([facility] Urine Drug [facility]); [Do Not Release]; Specimen Source:Urine; Status:In Progress - Specimen/Data Collected; Done: 66Qaf6898 4. Follow-up in 2 months Follow Up Follow-up Status: Hold For - Scheduling Re quested for: 63Mtk5162Qbvmfrys Appointment for 15 or 30 minutes : Schedule 15 minute appointment Medication:. [facility] CARE REP Information: CARE REP was consulted by my designee and I have reviewed the information presented to me and find no aberrant compliance issues. Patient has been informed. General Medications Prescribed: CYCLOBENZAPRINE, HORIZANT . GENERAL MEDICATIONS: I advised the patient today/previously regarding treatment with the above medication(s). The risks, benefits, common side effects and alternative treatments were discussed with the patient. The provider verbalized with the patient. The patient verbalized understanding and was told to call if there were any untoward effects. Controlled Substance Prescribed: HYDROCODONE . CONTROLLED SUBSTANCE INFORMATION: I advised the patient today/previously regarding treatment with the above controlled substance and/or narcotic. The patient was then informed of the risks, benefits, and alternatives of the narcotic. The risks discussed included but were not limited to physical and/or psychological dependence, tolerance of the medication, drowsiness, sleepiness, balance/coordination problems, confusion, allergic reaction or any other abnormal symptoms. The patient was advised and agreed to use the medication only as prescribed, and not to drive, or operate heavy equipment or machinery. The patient understood and consented to both undergo a narcotic/opiate regimen and agreed to sign and comply with all of the [facility] terms of a controlled substance treatment and agreement. UDS: This is an established patient and is on ongoing opioid therapy. A UDS is being obtained today, the patient has previously consented to UDS as part of the Controlled Substance and Treatment Agreement. The reason for today's UDS is: patient was selected at random and scored as low risk on the opioid risk assessment. Creatinine has been ordered as well for specimen validity, not for kidney function. Preliminary UDS results are not final and should not be used to determine patient care or plan of treatment. Initially a qualitative immunoassay screen will be done. Any positive findings or negative findings that are out of compliance will be further tested with a more comprehensive quantitative confirmation LCMS study. It is part of the normal prescribing protocol of controlled substances and is considered standard of care. Treatment includes: FOLLOW UP: The patient should have a follow up visit in 2 months. Discussion/SummaryPleasant 59-year-old male patient with chronic cervical and lumbar pain. He is currently stable on medications at this time and defers any other treatment modalities. He plans to sell his home and will be splitting his time between [place] where his daughter lives and [place] where his dffihd-lk-hax resides. He states he would like to stay with this office and will keep coming here every 2 months for his medications. No changes made today. Patient will follow up in 2 months time. [employer] DisclaimerNYSWC [employer] Disclaimer: This document was dictated and electronically signed using [employer] software. A reasonable attempt at proof reading has been made to minimize errors. Please call with any questions. Signatures Electronically signed by : Edith Tovar NP; Feb 08 2020 1:46PM EST (Author) Electronically signed by : Epi Cleaning MD; Feb 09 2020 10:27AM EST Name Value Range Interpretation Code Description Data Paula rce(s) Supporting Document(s) ID Date Data Source [id number] 12/28/2019 03:59:26 PM EDT [facility] PATIENT ABO/Rh A POSITIVESPE C EXP DATE 12/31/2019TESTING SITE PERFORMED AT [address] [place] [address] BANK COMMENT BLOOD TYPE CONFIRMED. Name Value Range Interpretation Code Description Data Paula rce(s) Supporting Document(s) WBC 5.3 10*3/uL (4.1-11.0) [facility] RBC 4.44 10*6/uL (4.60-6.10) L [facility] HGB 14.3 g/dL (13.5-18.0) [facility] HCT 42.5 % (41.0-53.0) [facility] MCV 95.6 fL (80.0-95.0) H [facility] MCH 32.1 pg (27.0-32.0) H [facility] MCHC 33.6 g/dL (32.0-36.0) [facility] RDW 13.6 % (10.5-14.5) [facility] PLT 217 10*3/uL (150-450) [facility] MPV 9.0 fL (7.1-10.7) [facility] [place] C[facility] NEUT % 50.6 % (35.0-75.0) [facility] LYMPH % 39.1 % (16.0-52.0) [facility] MONO % 7.3 % (0.0-8.0) [facility] C[facility] EOS % 2.3 % (0.0-5.0) [facility] - C[facility] BASO % 0.7 % (0.0-4.0) [facility] - CORE NEUT # 2.7 10*3/uL (1.8-7.7) [facility] - C[facility] LYMPH # 2.1 10*3/uL (1.2-4.8) [facility] - CORE MONO # 0.4 10*3/uL (0.0-0.8) [facility] - CORE Eosinophils [#/volume] in Blood by Automated count 0.1 10*3/uL (0.0-0 .5) [facility] [place] [facility] - CORE BASO # 0.0 10*3/uL (0.0-0.2) [facility] ID Date Data Source [id number] 12/28/2019 04:46:31 PM EDT [facility] PATIENT ABO/Rh A POSITIVESPE C EXP DATE 12/31/2019TESTING SITE PERFORMED AT [address] [place] [address] BANK COMMENT BLOOD TYPE CONFIRMED. Name Value Range Interpretation Code Description Data Paula rce(s) Supporting Document(s) SODIUM 141 mmol/L (136-145) [facility] [place] POTASSIUM 4.0 mmol/L (3.6-5.2) [facility] - C[facility] CHLORIDE 108 mmol/L (100-108) [facility] [place] [facility] C[facility] CO2 25 mmol/L (22-31) [facility] [place] C[facility] ANION GAP 8 mmol/L (7-16) [facility] [place] C[facility] UREA NITROGEN 15 mg/dL (7-24) [facility] CREATININE 1.16 mg/dL (0.80-1.30) [facility] BUN/CREAT RATIO 12.9 RATIO (10.0-20.0) [facility] - C[facility] GLUCOSE 125 mg/dL (70-99) H [facility] [place] [facility] - CORE CALCIUM 9.1 mg/dL (8.4-10.2) [facility] [place] - C[facility] TOTAL PROTEIN 7.5 g/dL (6.4-8.2) [facility] ALBUMIN 4.1 g/dL (3.2-4.5) [facility] [place] [facility] - CORE GLOBULIN 3.4 g/dL (2.7-4.3) [facility] [place] [facility] - CORE ALB/GLOB RATIO 1.2 RATIO [facility] - CORE ALKALINE PHOSPHATASE 57 U/L (45-117) [facility] - CORE BILIRUBIN,TOTAL 0.6 mg/dL (0.0-1.0) [facility] - CORE PLEASE NOTE:Total bilirubin results may be falselyelevated in patients taking Eltrombopag. AST (SGOT) 18 U/L (11-39) [facility] [place] [facility] - CORE ALT (SGPT) 32 U/L (12-78) [facility] [place] - C[facility] GFR >60 ml/min/1.73m2 (>59) [facility] - CORE GFR ( AMER) >60 ml/min/1.73m2 (>59) [facility] [place] [facility] - CORE GFR INTERPRETATION [facility] [place] [facility] - CORE --NORMAL KIDNEY FUNCTION OR MILD DISEASE - GFR >OR= 60CHRONIC KIDNEY DISEASE - GFR 15 - 59RENAL FAILURE - GFR <15 Est. GFR calculation based on the MDRDstudy equation, which assumes a steadystate for creatinine. Est. GFR should notbe used for medication dosing. ID Date Data Source [id number] 12/28/2019 04:46:31 PM EDT [facility] - CORE PATIENT ABO/Rh A POSITIVESPE C EXP DATE 12/31/2019TESTING SITE PERFORMED AT [address] [place] [address] BANK COMMENT BLOOD TYPE CONFIRMED. Name Value Range Interpretation Code Description Data Paula rce(s) Supporting Document(s) PSA,TOTAL SCREEN @ 1.2 ng/mL (0.0-4.0) [facility] [place] [facility] IN 20% OF CASES W/ BPH, PSA MAY BE10 NG/ ML OR MORE. SERUM PSACONCENTRATION SHOULD NOT BE INTERPRETEDAS ABSOLUTE EVIDENCE FOR THE PRESENCEOR ABSENCE OF MALIGNANT DISEASE. METHODIS SIEMENS [employer] LOCI CHEMILUMINESCENTIMMUNOASSAY (CALIBRATION TRACEABLE , 1998,96/668).VALUES OBTAINED WITH DIFFERENT ASSAYMETHODS OR KITS CANNOT BE USEDINTERCHANGEABLY. ID Date Data Source [id number] 12/28/2019 04:46:31 PM EDT [facility] PATIENT ABO/Rh A POSITIVESPE C EXP DATE 12/31/2019TESTING SITE PERFORMED AT [address] COMMENT BLOOD TYPE CONFIRMED. Name Value Range Interpretation Code Description Data Paula rce(s) Supporting Document(s) CHOLESTEROL @ 246 mg/dL (0-200) H [facility] TRIGLYCERIDE @ 348 mg/dL (30-200) H [facility] - CORE FASTING HDL CHOLESTEROL @ 47 mg/dL (>40) [facility] C[facility] PER NCEP ATP III GUIDELINES:RESULTS LOWE R THAN 40 MG/DL ARE SUGGESTIVEOF INCREASED RISK FOR CORONARY ARTERYDISEASE. RESULTS > OR = TO 60 MG/DL ARECONSIDERED A NEGATIVE RISK FACTOR. CHOL/HDL RATIO 5.2 RATIO [facility] INTERPRETATION OF CHOL-HDL RATIO CHD RISK FEMALE MALEVERY HIGH >8.3 >14.3HIGH 5.6- 8.3 6.7- 14.3AVERAGE 3.7- 5.6 4.0- 6.7BELOW AVERAGE 2.5- 3.7 2.7- 4.0PROTECTED <2.5 <2.7 LDL CHOL (CALC) (<130) [facility] INTERFERENCE FROM ELEVATED TRIGLYCERIDES (GREATER THAN 300 MG/DL). SEE RESULTFOR DIRECT LDL. ID Date Data Source [id number] 12/28/2019 04:46:31 PM EDT [facility] PATIENT ABO/Rh A POSITIVESPE C EXP DATE 12/31/2019TESTING SITE PERFORMED AT [address] [place] [address] COMMENT BLOOD TYPE CONFIRMED. Name Value Range Interpretation Code Description Data Paula rce(s) Supporting Document(s) TSH,ULTRASENSITIVE @ 1.580 mIU/L (0.360-4.170) [facility] [facility] ID Date Data Source [id number] 12/28/2019 04:48:07 PM EDT [facility] PATIENT ABO/Rh A POSITIVESPE C EXP DATE 12/31/2019TESTING SITE PERFORMED AT [address] [place] [address] COMMENT BLOOD TYPE CONFIRMED. Name Value Range Interpretation Code Description Data Paula rce(s) Supporting Document(s) COVID IGG SEROLOGY @ (NEG) Laborator y [place] [facility] Negative results do not rule outSARS-CoV -2 infection, particularly inthose who have been exposed to thevirus. Negative results may occur if thespecimen is collected too soon followinginfection or in immunosuppressed patients. This test has not been approved by theFDA, however it has received EmergencyUse Authorization from the FDA. Antibodytest results should not be used as thesole criterion to confirm or rule [id number] infection or to assessinfection status. If acute infection issuspected, please use a moleculartest for diagnosis. ID Date Data Source [id number] 12/28/2019 04:56:29 PM EDT [facility] PATIENT ABO/Rh A POSITIVESPE C EXP DATE 12/31/2019TESTING SITE PERFORMED AT [address] [place] [address] COMMENT BLOOD TYPE CONFIRMED. Name Value Range Interpretation Code Description Data Paula rce(s) Supporting Document(s) DIRECT LDL @ 139 mg/dL (<130) H Laboratory [facility] PER NCEP ATP III GUIDELINES: OPTIMAL < 100 NEAR OPTIMAL 100 - 129BORDERLINE HIGH 130 - 159 HIGH 160 - 189 VERY HIGH > 189 ID Date Data Source [id number] 12/28/2019 06:44:38 PM EDT [facility] PATIENT ABO/Rh A POSITIVESPE C EXP DATE 12/31/2019TESTING SITE PERFORMED AT [address] [place] [address] COMMENT BLOOD TYPE CONFIRMED. Name Value Range Interpretation Code Description Data Paula rce(s) Supporting Document(s) HEMOGLOBIN A1C @ 6.0 % (4.0-6.0) Laboratory [facility] of [facility] Performed using Siemens [place] immunoassa y.Care must be taken when interpreting ZlS1lctwaerw in patients with a hemoglobin variantor decreased erythrocyte lifespan. Values 5.7 - 6.4% suggest prediabetes.Values >=6.5% are diagnostic for diabetes.REFERENCE: DIABETES CARE 2018: 41(S13-S27). EST AVERAGE GLUCOSE 126 mg/dL Laboratory [place] of [facility] ID Date Data Source [id number] 12/29/2019 09:29:52 AM EDT Laboratory [facility] of [facility] PATIENT ABO/Rh A POSITIVESPE C EXP DATE 12/31/2019TESTING SITE PERFORMED AT [address] [place], [place] [address]OOD BANK COMMENT BLOOD TYPE CONFIRMED. Name Value Range Interpretation Code Description Data Paula rce(s) Supporting Document(s) BLOOD TYPE/RH Laboratory [facility] of [facility] PATIENT ABO/Rh A POSITIVE ID Date Data Source [id number] 12/28/2019 12:00:00 AM EDT CHARTMAKER ([facility], [facility]) Name Value Range Interpretation Code Description Data Paula rce(s) Supporting Document(s) EOS # 0.1 10*3/uL EOS #: 0.1 10*3/uL 12/27 [facility] ([facility]) ID Date Data Source [id number] 12/28/2019 12:00:00 AM EDT CHARTMAKER ([facility]) Name Value Range Interpretation Code Description Data Paula rce(s) Supporting Document(s) MONO # 0.4 10*3/uL MONO #: 0.4 10*3/uL 7 CHARTMAKER ([facility]) ID Date Data Source [id number] 12/28/2019 12:00:00 AM EDT CHARTMAKER ([facility]) Name Value Range Interpretation Code Description Data Paula rce(s) Supporting Document(s) LYMPH # 2.1 10*3/uL LYMPH #: 2.1 10*3/uL CHARTMAK[facility] ([facility]) ID Date Data Source [id number] 12/28/2019 12:00:00 AM EDT CHARTMAKER ([facility]) Name Value Range Interpretation Code Description Data Paula rce(s) Supporting Document(s) NEUT # 2.7 10*3/uL NEUT #: 2.7 10*3/uL 12/09 CHARTMAK[facility] ([facility]) ID Date Data Source [id number] 12/28/2019 12:00:00 AM EDT CHARTMAKER ([facility], [facility]) Name Value Range Interpretation Code Description Data Paula rce(s) Supporting Document(s) BASO % 0.7 % BASO %: 0.7 % 12/28/2019 CHARTMAKER ([facility]) ID Date Data Source [id number] 12/28/2019 12:00:00 AM EDT CHARTMAKER ([facility]) Name Value Range Interpretation Code Description Data Paula rce(s) Supporting Document(s) EOS % 2.3 % EOS %: 2.3 % 12/28/2019 C HARTILKER ([facility]) ID Date Data Source [id number] 12/28/2019 12:00:00 AM EDT CHARTMAKER ([facility]) Name Value Range Interpretation Code Description Data Paula rce(s) Supporting Document(s) MONO % 7.3 % MONO %: 7.3 % 12/28/2019 CHARTMA[facility] ([facility]) ID Date Data Source [id number] 12/28/2019 12:00:00 AM EDT CHARTMAKER ([facility]) Name Value Range Interpretation Code Description Data Paula rce(s) Supporting Document(s) LYMPH % 39.1 % LYMPH %: 39.1 % 0 CHARTMAK[facility] ([facility]) ID Date Data Source [id number] 12/28/2019 12:00:00 AM EDT CHARTMAKER ([facility]) Name Value Range Interpretation Code Description Data Paula rce(s) Supporting Document(s) NEUT % 50.6 % NEUT %: 50.6 % 12/28/2019 CHARTMA[facility] ([facility]) ID Date Data Source [id number] 12/28/2019 12:00:00 AM EDT CHARTMAKER ([facility]) Name Value Range Interpretation Code Description Data Paula rce(s) Supporting Document(s) MPV 9 fL MPV: 9 fL 12/28/2019 REBECCA TMAKER ([facility]) ID Date Data Source [id number] 12/28/2019 12:00:00 AM EDT CHARTMAKER ([facility]) Name Value Range Interpretation Code Description Data Paula rce(s) Supporting Document(s) PLT 217 10*3/uL PLT: 217 10*3/uL 020 CHARTMAKER ([facility], [facility]) ID Date Data Source [id number] 12/28/2019 12:00:00 AM EDT CHARTMAKER ([facility], [facility]) Name Value Range Interpretation Code Description Data Paula rce(s) Supporting Document(s) RDW 13.6 % RDW: 13.6 % 12/28/2019 CH ARTMAKER ([facility], [facility]) ID Date Data Source [id number] 12/28/2019 12:00:00 AM EDT CHARTMAKER ([facility]) Name Value Range Interpretation Code Description Data Paula rce(s) Supporting Document(s) MCHC 33.6 g/dL MCHC: 33.6 g/dL 0 CHARTMAKER ([facility], [facility]) ID Date Data Source [id number] 12/28/2019 12:00:00 AM EDT CHARTMAKER ([facility]) Name Value Range Interpretation Code Description Data Paula rce(s) Supporting Document(s) MCH 32.1 pg MCH: 32.1 pg 12/28/2019 C HARTMAKER ([facility], [facility]) ID Date Data Source [id number] 12/28/2019 12:00:00 AM EDT CHARTMAKER ([facility]) Name Value Range Interpretation Code Description Data Paula rce(s) Supporting Document(s) MCV 95.6 fL MCV: 95.6 fL 12/28/2019 C HARTMAKER ([facility]) ID Date Data Source [id number] 12/28/2019 12:00:00 AM EDT CHARTMAKER ([facility]) Name Value Range Interpretation Code Description Data Paula rce(s) Supporting Document(s) HCT 42.5 % HCT: 42.5 % 12/28/2019 ARTMAKER ([facility]) ID Date Data Source [id number] 12/28/2019 12:00:00 AM EDT CHARTMAKER ([facility]) Name Value Range Interpretation Code Description Data Paula rce(s) Supporting Document(s) HGB 14.3 g/dL HGB: 14.3 g/dL 12/28/2019 CHARTMAKER ([facility]) ID Date Data Source [id number] 12/28/2019 12:00:00 AM EDT CHARTMAKER ([facility]) Name Value Range Interpretation Code Description Data Paula rce(s) Supporting Document(s) RBC 4.44 10*6/uL RBC: 4.44 10*6/uL 12/27 CHARTMAKER ([facility]) ID Date Data Source [id number] 12/28/2019 12:00:00 AM EDT CHARTMAKER ([facility]) Name Value Range Interpretation Code Description Data Paula rce(s) Supporting Document(s) WBC 5.3 10*3/uL WBC: 5.3 10*3/uL 020 CHARTMAKER ([facility]) ID Date Data Source [id number] 12/28/2019 12:00:00 AM EDT CHARTMAKER ([facility]) Name Value Range Interpretation Code Description Data Paula rce(s) Supporting Document(s) GFR ( AMER) >60 GFR ( AMER ): >60 12/28/2019 CHARTMAKER ([facility]) ID Date Data Source [id number] 12/28/2019 12:00:00 AM EDT CHARTMAKER ([facility]) Name Value Range Interpretation Code Description Data Paula rce(s) Supporting Document(s) GFR >60 GFR : >60 12/28/2019 REBECCA TMAKER ([facility]) ID Date Data Source [id number] 12/28/2019 12:00:00 AM EDT CHARTMAKER ([facility], [facility]) Name Value Range Interpretation Code Description Data Paula rce(s) Supporting Document(s) ALT (SGPT) 32 U/L ALT (SGPT): 32 U/L 2019 CHARTMAKER ([facility]) ID Date Data Source [id number] 12/28/2019 12:00:00 AM EDT CHARTMAKER ([facility]) Name Value Range Interpretation Code Description Data Paula rce(s) Supporting Document(s) AST (SGOT) 18 U/L AST (SGOT): 18 U/L 2019 CHARTMAKER ([facility]) ID Date Data Source [id number] 12/28/2019 12:00:00 AM EDT CHARTMAKER ([facility]) Name Value Range Interpretation Code Description Data Paula rce(s) Supporting Document(s) BILIRUBIN,TOTAL 0.6 MG/DL BILIRUBIN,TOTAL: 0. 6 MG/DL 12/28/2019 CHARTMAKER ([facility]) ID Date Data Source [id number] 12/28/2019 12:00:00 AM EDT CHARTMAKER ([facility]) Name Value Range Interpretation Code Description Data Paula rce(s) Supporting Document(s) ALKALINE PHOSPHATASE 57 U/L ALKALINE PHOSPH ATASE: 57 U/L 12/28/2019 CHARTMAKER ([facility]) ID Date Data Source [id number] 12/28/2019 12:00:00 AM EDT CHARTMAKER ([facility]) Name Value Range Interpretation Code Description Data Paula rce(s) Supporting Document(s) ALB/GLOB RATIO 1.2 RATIO ALB/GLOB RATIO: 1.2 RATIO 12/28/2019 CHARTMAKER ([facility]) ID Date Data Source [id number] 12/28/2019 12:00:00 AM EDT CHARTMAKER ([facility]) Name Value Range Interpretation Code Description Data Paula rce(s) Supporting Document(s) GLOBULIN 3.4 g/dL GLOBULIN: 3.4 g/dL 2019 CHARTMAKER ([facility]) ID Date Data Source [id number] 12/28/2019 12:00:00 AM EDT CHARTMAKER ([facility]) Name Value Range Interpretation Code Description Data Paula rce(s) Supporting Document(s) Albumin 4.1 g/dL Albumin: 4.1 g/dL 020 CHARTMAKER ([facility]) ID Date Data Source [id number] 12/28/2019 12:00:00 AM EDT CHARTMAKER ([facility]) Name Value Range Interpretation Code Description Data Paula rce(s) Supporting Document(s) TOTAL PROTEIN 7.5 g/dL TOTAL PROTEIN: 7.5 g/ dL 12/28/2019 CHARTMAKER ([facility]) ID Date Data Source [id number] 12/28/2019 12:00:00 AM EDT CHARTMAKER ([facility]) Name Value Range Interpretation Code Description Data Paula rce(s) Supporting Document(s) CALCIUM 9.1 MG/DL CALCIUM: 9.1 MG/DL 2019 CH[facility]MA[facility] ([facility]) ID Date Data Source [id number] 12/28/2019 12:00:00 AM EDT CHARTMAKER ([facility]) Name Value Range Interpretation Code Description Data Paula rce(s) Supporting Document(s) Glucose 125 MG/DL Glucose: 125 MG/DL 2019 CH[facility]MAKER ([facility]) ID Date Data Source [id number] 12/28/2019 12:00:00 AM EDT CHARTMAKER ([facility]) Name Value Range Interpretation Code Description Data Paula rce(s) Supporting Document(s) BUN/CREAT RATIO 12.9 RATIO BUN/CREAT RATIO: 12 .9 RATIO 12/28/2019 CHARTMAK[facility] ([facility]) ID Date Data Source [id number] 12/28/2019 12:00:00 AM EDT CHARTMAKER ([facility]) Name Value Range Interpretation Code Description Data Paula rce(s) Supporting Document(s) Creatinine 1.16 MG/DL Creatinine: 1.16 MG/DL CHARTMAKER ([facility]) ID Date Data Source [id number] 12/28/2019 12:00:00 AM EDT CHARTMAKER ([facility]) Name Value Range Interpretation Code Description Data Paula rce(s) Supporting Document(s) UREA NITROGEN 15 MG/DL UREA NITROGEN: 15 MG/ DL 12/28/2019 CHARTMAK[facility] ([facility]) ID Date Data Source [id number] 12/28/2019 12:00:00 AM EDT CHARTMAKER ([facility]) Name Value Range Interpretation Code Description Data Paula rce(s) Supporting Document(s) Anion Gap 8 mmol/L Anion Gap: 8 mmol/L 12/27 CH[facility]MA[facility] ([facility]) ID Date Data Source [id number] 12/28/2019 12:00:00 AM EDT CHARTMAKER ([facility]) Name Value Range Interpretation Code Description Data Paula rce(s) Supporting Document(s) CO2 25 mmol/L CO2: 25 mmol/L 12/28/2019 [facility]MA[facility] ([facility]) ID Date Data Source [id number] 12/28/2019 12:00:00 AM EDT CHARTMAKER ([facility]) Name Value Range Interpretation Code Description Data Paula rce(s) Supporting Document(s) CHLORIDE 108 mmol/L CHLORIDE: 108 mmol/L 12/09 [facility]MAK[facility] ([facility]) ID Date Data Source [id number] 12/28/2019 12:00:00 AM EDT CHARTMAKER ([facility]) Name Value Range Interpretation Code Description Data Paula rce(s) Supporting Document(s) Potassium 4 mmol/L Potassium: 4 mmol/L 12/27 CH[facility]MAK[facility] ([facility]) ID Date Data Source [id number] 12/28/2019 12:00:00 AM EDT CHARTMAKER ([facility]) Name Value Range Interpretation Code Description Data Paula rce(s) Supporting Document(s) SODIUM 141 mmol/L SODIUM: 141 mmol/L 2019 CH[facility]MAK[facility] ([facility]) ID Date Data Source [id number] 12/28/2019 12:00:00 AM EDT CHARTMAKER ([facility]) Name Value Range Interpretation Code Description Data Paula rce(s) Supporting Document(s) PSA,TOTAL SCREEN @ 1.2 ng/mL PSA,TOTAL SCREEN @: 1.2 ng/mL 12/28/2019 CHARTMAKER ([facility]) ID Date Data Source [id number] 12/28/2019 12:00:00 AM EDT CHARTMAKER ([facility]) Name Value Range Interpretation Code Description Data Paula rce(s) Supporting Document(s) LDL CHOL (CALC) UNABLE TO CALCULATE VALID LDL DUE TO LDL CHOL (CALC): UNABLE TO CALCULATE VALID LDL DUE TO 12/28/2019 CHARTMAKER ([facility]) ID Date Data Source [id number] 12/28/2019 12:00:00 AM EDT CHARTMAKER ([facility]) Name Value Range Interpretation Code Description Data Paula rce(s) Supporting Document(s) CHOL/HDL RATIO 5.2 RATIO CHOL/HDL RATIO: 5.2 RATIO 12/28/2019 CHARTMAKER ([facility]) ID Date Data Source [id number] 12/28/2019 12:00:00 AM EDT CHARTMAKER ([facility]) Name Value Range Interpretation Code Description Data Paula rce(s) Supporting Document(s) HDL CHOLESTEROL @ 47 MG/DL HDL CHOLESTEROL @: 47 MG/DL 12/28/2019 CH[facility]MAKER ([facility]) ID Date Data Source [id number] 12/28/2019 12:00:00 AM EDT CHARTMAKER ([facility]) Name Value Range Interpretation Code Description Data Paula rce(s) Supporting Document(s) TRIGLYCERIDE @ 348 MG/DL TRIGLYCERIDE @: 348 MG/DL 12/28/2019 CH[facility]MAK[facility] ([facility]) ID Date Data Source [id number] 12/28/2019 12:00:00 AM EDT CHARTMAKER ([facility]) Name Value Range Interpretation Code Description Data Paula rce(s) Supporting Document(s) CHOLESTEROL @ 246 MG/DL CHOLESTEROL @: 246 MG /DL 12/28/2019 CH[facility]MAKER ([facility]) ID Date Data Source [id number] 12/28/2019 12:00:00 AM EDT CHARTMAKER ([facility]) Name Value Range Interpretation Code Description Data Paula rce(s) Supporting Document(s) TSH,ULTRASENSITIVE @ 1.58 mIU/L TSH,ULTRASENSIT MELLISSA @: 1.58 mIU/L 12/28/2019 CH[facility]MAKER ([facility]) ID Date Data Source [id number] 12/28/2019 12:00:00 AM EDT CHARTMAKER ([facility]) Name Value Range Interpretation Code Description Data Paula rce(s) Supporting Document(s) COVID IGG SEROLOGY @ NEGATIVE COVID IGG SEROL OGY @: NEGATIVE 12/28/2019 [facility]MAK[facility] ([facility]) ID Date Data Source [id number] 12/28/2019 12:00:00 AM EDT CHARTMAKER ([facility]) Name Value Range Interpretation Code Description Data Paula rce(s) Supporting Document(s) DIRECT LDL @ 139 MG/DL DIRECT LDL @: 139 MG/D L 12/28/2019 [facility]MA[facility] ([facility]) ID Date Data Source [id number] 12/28/2019 12:00:00 AM EDT CHARTMAKER ([facility]) Name Value Range Interpretation Code Description Data Paula rce(s) Supporting Document(s) EST AVERAGE GLUCOSE 126 MG/DL EST AVERAGE GLUC OSE: 126 MG/DL 12/28/2019 [facility]MA[facility] ([facility]) ID Date Data Source [id number] 12/28/2019 12:00:00 AM EDT CHARTMAKER ([facility]) Name Value Range Interpretation Code Description Data Paula rce(s) Supporting Document(s) Hemoglobin A1c/Hemoglobin.total in Blood 6 % HEMOGLOBIN A1C @: 6 % 12/28/2019 [facility]MAK[facility] ([facility]) ID Date Data Source [id number] 12/28/2019 12:00:00 AM EDT CHARTMAKER ([facility]) Name Value Range Interpretation Code Description Data Paula rce(s) Supporting Document(s) BASO # 0 10*3uL BASO #: 0 10*3/uL 020 CHARTMAKER ([facility], [facility]) ID Date Data Source [id number] 11/09/2019 11:48:26 AM EDT [facility], PCName: Fercho MurraymanDOB: 1960Provider: Akash TovaraDOS: 11/09/2019 Chief ComplaintNeck pain and back pain Chief Complaint 2NYSW VAS PAIN Established: ZULEMA completing section: [facility] Telemedicine - Explanation to patient regarding Telemedicine: Explanation to patient regarding telemedicine Patient initiated contact with the office via phone call or via patient portal to schedule a Telehealth visit. I explained to the patient that telemedicine is the practice of using telecommunications technology to evaluate, diagnose and care for patients at a distance. Telehealth visits are a way for [facility] to continue providing quality care to our patients while still practicing mandated social distancing, in emergency effort to keep both the patient and myself safe throughout the COVID-19 pandemic. During this emergent initiation of Telemedicine, the office of civil rights has loosened the laws on HIPAA compliance to accommodate the continuation of medical care across the [place] throughout the COVID-19 pandemic. [facility] Telemedicine - TV Consent Established: Telehealth Consent Tyshawn Ray is an established patient of [facility], and was made aware co-pays and co-insurance may be waived by their insurer due to COVID- 19, as well as, the potential privacy risks with the use of third-green party applications as a result of this Telehealth visit. The patient has verbalized consent to proceed with a Telehealth visit via audio with live video calling. Location of Provider and Patient for this telehealth visit: Provider is located at my residence in [facility] Patient is located at home, in [place], [place] The following were present during this visit: patient was alone Application used for the telehealth visit: POKKT Kori History of Present Illness Pain Duration: years Pain Quality: (Neuropathic) shooting Pain Quality: (Nociceptive) aching Progression: unchanged Pain Score: a current pain level of 7/10. Condition type: The patient is being seen for a chronic condition. PAIN LO CATION: the pain is located in the neck, the pain is located in the low back and the pain is located in the mid-back . REVIEW OF PAST DIAGNOSTICS: have included: MRI, x-rays and bone scan . Records were obtained, reviewed and on file. PAST TREATMENT has included: ANTICONVULSANTS (effective) Includes Topamax., MUSCLE RELAXANTS (effective) Includes Cyclobenzaprine ., OPIOID ANALGESICS (effective) Includes Hydrocodone and Oxycodone. INTERVAL EVENTS: include no significant change impacting patients medical condition. ASSOCIATED SYMPTOMS: include difficulty walking and muscle pain/spasm, but not radiating, no fecal incontinence, no extremity weakness and no urinary incontinence. FUNCTIONAL LIMITATIONS: The patient's functional status is limited as follows: ability to participate in hobbies and perform housework. MEDICATION SIDE EFFECTS experienced by patient are: no known medication side effects. Review of SystemsROS was reviewed with patient; I feel the ROS to be negative/normal other than Musculoskeletal. Patient maintains at today's visit there has been no change in his/her hematologic history. Active Problems 1. Carpal tunnel syndrome (354.0) (G56.00) 2. Cervical postlaminectomy syndrome (722.81) (M96.1) 3. Cervical radiculopathy (723.4) (M54.12) 4. Chronic pain (338.29) (G89.29) 5. Encounter for long-term (current) use of medications (V58.69) (Z79.899) 6. History of heart surgery (V15.1) (Z98.890) 7. Implantable Cardioverter-Defibrillator 8. Joint pain, knee (719.46) (M25.569) 9. 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 Low back pain (724.2) (M54.5) 11. Lumbar herniated disc (722.10) (M51.26) 12. Myofascial pain syndrome (729.1) (M79.18) 13. Postherpetic neuralgia (053.19) (B02.29) 14. 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) Allergies No Known Drug Allergies Updated By: Florentino Young; 05/09/2016 8:56:03 AMDenied Adhesive Tape Recorded By: Rachell Bradford; 10/09/2011 12:42:04 PM Iodinated Contrast Media Recorded By: Leonid Gillespie; 09/02/2015 11:01:30 AM Latex Recorded By: Rachell Bradford; 10/09/2011 12:42:04 PM Current Meds amLODIPine Besylate 2.5 MG Oral Tablet;Therapy: 28Apr2015 to Recorded Aspirin 81 MG TABS;Therapy: (Recorded:[id number]) to RecordedLD 09/24/17 am Budeprion SR 100 MG TB12;Therapy: (Recorded:15Jan2012) to Recorded Cyclobenzaprine HCl - 10 MG Oral Tablet; take 1 tablet by mouth three times a day ASNEEDED FOR MUSCLE SPASM MDD:3 Requested for: 22Oct2019; Last Rx:09Jul2019;Status: ACTIVE - Renewal Denied Ordered Fish Oil CAPS;Therapy: (Recorded:15Oct2011) to Recorded Flonase SUSP;Therapy: (Recorded:15Oct2011) to Recorded Horizant 300 MG Oral Tablet Extended Release; one tablet at evening meal MDD:1;Therapy: 02Aug2016 to (Evaluate:07Oct2017) Requested for: 16Jul2018; LastRx:09Jul2017 Orderedlong time HYDROcodone-Acetaminophen 10-325 MG Oral Tablet; TAKE 1 TABLETS EVERY 8-12HOURS NEEDED FOR PAIN. MDD:3;Therapy: 17Sep2011 to (Evaluate:19Nov2019) Requested for: 20Oct2019; LastRx:20Oct2019 OrderedLD-06/15/19 9PM LaMICtal 25 MG Oral Tablet;Therapy: (Recorded:15Oct2011) to Recorded Lidocaine 5 % External Patch; APPLY 1-2 PATCH TO AFFECTED AREA 12 HRS ON, 12HRS OFFCode D, Dx: 722.81 MDD:2Code D, Dx: 722.81;Therapy: 15Jan2012 to (Evaluate:16Jan2015) Requested for: [id number]; LastRx:20Jul2014 Ordered Magnesium 500 MG Oral Capsule; One tablet daily MDD:1;Therapy: 42Bvp2048 to (Evaluate:04Jul2019) Requested for: [id number]; LastRx:[id number] Ordered Multi Vitamin/Minerals TABS;Therapy: (Recorded:15Oct2011) to Recorded Naproxen 500 MG Oral Tablet; TK 1 T PO BID WITH FOOD MDD:2;Therapy: 08May2018 to (Evaluate:23Apr2020) Requested for: [id number]; LastRx:26Oct2019 Ordered Nortriptyline HCl - 10 MG Oral Capsule; 1 tab po hs MDD:1 Requested for: 09Jul2019;Last Rx:09Jul2019 Ordered Omeprazole 20 MG Oral Capsule Delayed Release; TAKE 1 CAPSULE DAILY. MDD:1 Requested for: 22Oct2019; Last Rx:09Jul2019; Status: ACTIVE - Renewal DeniedOrdered Simvastatin 10 MG Oral Tablet;Therapy: (Recorded:15Oct2011) to Recorded Topiramate 200 MG Oral Tablet;Therapy: (Recorded:12Jun2018) to Recorded Vitamin B-1 100 MG Oral Tablet;Therapy: [id number] to Recorded Voltaren 1 % Transdermal Gel; 4gms to affected area 4 times a day;Therapy: 16Oct2012 to (Evaluate:17Nov2014) Requested for: [id number]; LastRx:20Jul2014 Ordered Past Medical History History of Bradycardia (427.89) (R00.1) Denied: History of blood coagulation disorder History of low back pain (V13.59) (Z87.39) History of syncope (V15.89) (Z87.898) History of Neck pain (723.1) (M54.2) Denied: History of Taking Blood Thinners Surgical History Denied: History of Cardioverter defibrillator insertion History of Neck Surgery fusion History of Permanent Pacemaker Type Family History Denied: Family history of No Significant Family History Social History Current non-drinker of alcohol (V49.89) (Z78.9) Currently On Disability Denied: History of Drug Use Marital History - Currently Never smoker Physical ExamGeneral: The patient is a well nourished/well developed, male, with a medium build, who is in no acute distress and appears stated age. Psychological: Alert and oriented to person, place and time. Mood and affect are pleasant and appropriate. Judgement intact. Insight normal without delusions or hallucinations. Denies suicidal/homicidal ideation. Results/DataThis patient had a urine drug screen on 06/16/2019. Results are in compliance. Assessment 1. Chronic pain (338.29) (G89.29) 2. Cervical postlaminectomy syndrome (722.81) (M96.1) 3. Low back pain (724.2) (M54.5) Plan 1. Stop: Nortriptyline HCl - 10 MG Oral Capsule 2. Renew: HYDROcodone- Acetaminophen 10-325 MG Oral Tablet (Reyno); TAKE 1 TABLETS EVERY 8-12 HOURS NEEDED FOR PAIN. MDD:3LD-06/15/19 9PM 3. Follow-up in 2 months Follow Up Follow-up Status: Hold For - Scheduling Requested for: [id number] Appointment for 15 or 30 minutes : Schedule 15 minute appointment Medication:. Due to the current COVID-19 pandemic, telemedicine does not allow for the collection of urine drug screening for initiation or chronic use of opioid medications. Patient will be subject to urine drug screening at next in-office visit. Medication list was reviewed with the patient, and updates were made to reflect her current medication regimen. Allergy list was reviewed with patient, and any necessary changes were made. [facility] CARE REP Information: CARE REP was consulted by my designee and I have reviewed the information presented to me and find no aberrant compliance issues. Patient has been informed. Controlled Substance Prescribed: HYDROCODONE . CONTROLLED SUBSTANCE INFORMATION: I advised the patient today/previously regarding treatment with the above controlled substance and/or narcotic. The patient was then informed of the risks, benefits, and alternatives of the narcotic. The risks discussed included but were not limited to physical and/or psychological dependence, tolerance of the medication, drowsiness, sleepiness, balance/coordination problems, confusion, allergic reaction or any other abnormal symptoms. The patient was advised and agreed to use the medication only as prescribed, and not to drive, or operate heavy equipment or machinery. The patient understood and consented to both undergo a narcotic/opiate regimen and agreed to sign and comply with all of the [facility] terms of a controlled substance treatment and agreement. Treatment includes: FOLLOW UP: The patient should have a follow up visit in 2 months. TIme:. Time: Start time: 10:46 A.M. End time: 10:51 A.M. Discussion/SummaryPleasant 59-year-old male patient with chronic cervical and lumbar pain. Today's visit was conducted over a video conference call due to the coronavirus pandemic. This patient is currently stable on medications at this time defers any other treatment modalities. He has been exercising by walking outdoors and I have encouraged him to continue to do so. Patient will follow up in 2 months time, sooner if needed. [employer] DisclaimerNYSWC [employer] Disclaimer: This document was dictated and electronically signed using [employer] software. A reasonable attempt at proof reading has been made to minimize errors. Please call with any questions. Signatures Electronically signed by : Edith Tovar NP; Nov 09 2019 10:57AM EST (Author) Electronically signed by : Rosalio Devlin MD; Nov 09 2019 11:48AM EST Name Value Range Interpretation Code Description Data Paula rce(s) Supporting Document(s) ID Date Data Source [id number] 10/26/2019 02:33:13 AM EDT [facility] Received: 10/23/2019 at 05:22:00 S: [facility], [address] [place] [address], [id number], [facility] MD CASSIE FACP Name Value Range Interpretation Code Description Data Paula rce(s) Supporting Document(s) Nidus [Presence] in Stone Not observed [facility] Composition in Stone [facility] Calcium Oxalate Dihydrate (Weddellite) 3 0%Calcium Oxalate Monohydrate (Whewellite) 35%Carbonate Apatite (Dahllite) 35% Weight of Stone 0.0120 g [facility] This test was developed and its analyti katty performancecharacteristics have been determined by [facility]. It has not been cleared or approved by the USFood and Drug Administration. This assay has been validatedpursuant to the CLIA regulations and is used for clinicalpurposes. ID Date Data Source [id number] 10/26/2019 02:42:00 AM EDT [facility] [id number] PERFORMED AT:[address] [id number] MATTHEWS MD FACP Name Value Range Interpretation Code Description Data Paula rce(s) Supporting Document(s) COMPONENT 1 SEE BELOW [facility] Calcium Oxalate Dihydrate (Weddellite) 3 0%Calcium Oxalate Monohydrate (Whewellite) 35%Carbonate Apatite (Dahllite) 35% STONE WEIGHT 0.0120 g [facility] This test was developed and its analyti katty performancecharacteristics have been determined by [facility]. It has not been cleared or approved by the USFood and Drug Administration. This assay has been validatedpursuant to the CLIA regulations and is used for clinicalpurposes. NIDUS: Not observed [facility] ID Date Data Source [id number] 10/21/2019 01:53:00 PM EDT [facility] ([facility] [place] Name Value Range Interpretation Code Description Data Paula rce(s) Supporting Document(s) Surgical pathology study Laboratory test result [facility] ([facility] [place]) \X0D\\X0A\TEST PERFORMED AT:\X0 D\\X0A\[facility]\X0D\\X0A\[address] Dean ID Date Data Source [id number] 10/21/2019 01:53:00 PM EDT [facility] ([facility] [place]) Name Value Range Interpretation Code Description Data Paula rce(s) Supporting Document(s) Component 1 Laboratory test result M EDENT ([facility] [place]) \X0D\\X0A\TEST PERFORMED AT:\X0 D\\X0A\[facility]\X0D\\X0A\[address] [address] Stone Weight 0.0120 g [facility] ([facility] [place]) [id number]\X0D\\X0A\TEST PERFORMED AT:\X0 D\\X0A\[facility]\X0D\\X0A\[address] Dean Nidus: Laboratory test result ME [facility] ([facility] [place]) [id number]\X0D\\X0A\TEST PERFORMED AT:\X0 D\\X0A\[facility]\X0D\\X0A\[address] Dean ID Date Data Source [id number] 10/22/2019 03:05:00 PM EDT [facility] [place] [address] Sofia Garcia M.D., Investment Banking Manager Laboratory Report Pg 1 PATIENT: TYSHAWN RAY : 58 M.R.N.: [id number]: Baldo Aguirre MD AGE/SEX: 58/M COPIES TO: LOC: JEFF Aguirre MD Unknown,Physician ACCESSION NUMBER: [id number] RECEIVED: 10/22/19 FINAL DIAGNOSIS: Kidney stone analysis: Renal calculus (gross examination only) . CLINICAL HISTORY: N20.0-Calculus of kidney SPECIMEN: CALCULUS GROSS DESCRIPTION: Received in a dry container labeled with the patient's name is a calculus measuring 0.3 cmin greatest dimension. The specimen is totally submitted for chemical analysis. cn Signed (signature on file) Sofia Garcia MD 10/22/19 1505 Name Value Range Interpretation Code Description Data Paula rce(s) Supporting Document(s) ID Date Data Source [id number] 10/14/2019 09:13:00 AM EDT [facility] NAME: TYSHAWN RAY 1960 58 MRUN: [id number] LOC: ACCT: [id number] SRV: Placido#: RPT#: [id number] XR ABD SINGLE VIEW (KUB) [id number] Date/Time:10/14/19 0740 Dx: FREQUENCY OF MICTURITION, CALCULUS OF KIDNEY Order Phy: Baldo Aguirre MD X-RAY ABDOMEN ONE VIEW-(KUB) HISTORY: RENAL STONE DISEASE. COMPARISON: CT ABDOMEN AND PELVIS OCTOBER 07, 2019. FINDINGS: Right pelvic calcification with central lucency consistent with phlebolith is seen. Radiopaque renal, ureteral or bladder calculus is not identified. The intra-abdominal bowel gas pattern is nonspecific with no evidence for obstruction. . No evidence for organomegaly or ascites is noted. There is no acute osseous abnormality. No free intraperitoneal air is noted. IMPRESSION: RADIOPAQUE RENAL STONE DISEASE NOT IDENTIFIED. RIGHT PELVIC CALCIFICATION WITH CENTRAL LUCENCY MOST CONSISTENT WITH PHLEBOLITH. DICTATED BY: Umang Randle MD 0 10/14/19912 Electronically Signed By: Umang Randle MD 10/14/19912 Electronically Co-Signed By: Transcribed By: [email or web address] PACS IMAGE LINK ([facility] USE ONLY) [email or web address] Name Value Range Interpretation Code Description Data Paula rce(s) Supporting Document(s) ID Date Data Source [id number] 10/14/2019 09:01:00 AM EDT [facility] NAME: TYSHAWN RAY 1960 58 MRUN: [id number] LOC: US ACCT: [id number] SRV: Placido#: RPT#: [id number] US RETROPERITONEAL LIMITED [id number] Date/Time:10/14/19741 Dx: CALCULUS OF KIDNEY Order Phy: Baldo Aguirre MD US OF THE KIDNEYS: HISTORY: KIDNEY STONE DISEASE. COMPARISON: CT abdomen and pelvis October 07, 2019. FINDINGS: Solid renal mass, hydronephrosis or renal calculus is not identified. Left-sided hydronephrosis seen on recent CT is no longer seen. In the lower pole of the right kidney is a cystic structure measuring 1.2 x 1.3 x 1.1 cm. Right renal dimensions are 12.3 x 5.9 x 5.4 cm. Left renal dimensions are 13.0 x 5 x 9 x 4.7 cm. Mild fatty infiltration of the liver is incidentally noted. IMPRESSION: 1.3 CM CYST NOTED IN THE LOWER POLE OF THE RIGHT KIDNEY. KIDNEYS ARE OTHERWISE UNREMARKABLE. LEFT-SIDED HYDRONEPHROSIS PRESENT OCTOBER 07, 2019 IS NO LONGER IDENTIFIED. FATTY INFILTRATION OF THE LIVER INCIDENTALLY NOTED. DICTATED BY: Umang Randle MD 0 10/14/19900 Electronically Signed By: Umang Randle MD 10/14/19900 Electronically Co-Signed By: Transcribed By: BILLY. 0 0901 PAC[employer] IMAGE LINK ([facility] USE ONLY) [email or web address] Name Value Range Interpretation Code Description Data Paula rce(s) Supporting Document(s) ID Date Data Source [id number] 10/07/2019 11:40:00 PM EDT [facility] NAME: TYSHAWN RAY 1960 58 MRUN: [id number] LOC: ED ACCT: [id number] SRV: O.V.#: RPT#: [id number] CT ABDOMEN/PELVIS [id number] Date/Time:10/07/192215 Dx: flank pain, hx of stone @ 20 Order Phy: Nathaly Quevedo DO CT ABDOMEN AND PELVIS HISTORY: LEFT FLANK PAIN AND HEMATURIA. FINDINGS: The chest base demonstrates mild dependent atelectasis. Pacemaker leads are noted. There is normal noncontrast CT appearance of the liver, spleen, pancreas, adrenal glands, and right kidney. The left kidney demonstrates mild perinephric stranding, mild hydronephrosis and mild hydroureter due to a 2 mm obstructive stone in the right ureterovesical junction. There is no gallbladder wall thickening or biliary duct dilatation. The visualized bowel is normal in caliber. The appendix is normal. No bowel wall thickening. The bladder and pelvic organs appear normal. No acute osseous abnormality. No lymphadenopathy. IMPRESSION: 2 MM OBSTRUCTIVE STONE IN THE LEFT URETEROVESICAL JUNCTION CAUSING MILD HYDRONEPHROSIS AND HYDROURETER. RADIATION DOSE: 14.6 mGy Adjustment of the mA and/or kV according to the patient size was utilized. Automated exposure control is used when appropriate. Iterative Reconstruction Technique is used when appropriate. DICTATED BY: Soy Corona MD 09/09 02/27 0 Electronically Signed By: Soy Corona MD 10/08/19 0954 Electronically Co-Signed By: Transcribed By: MARITZA 0 0858 PACS IMAGE LINK ([facility] USE ONLY) [email or web address] Name Value Range Interpretation Code Description Data Paula rce(s) Supporting Document(s) ID Date Data Source [id number] 10/07/2019 10:23:00 PM EDT [facility] ([facility]) Name Value Range Interpretation Code Description Data Paula rce(s) Supporting Document(s) Urea nitrogen [Mass/volume] in Serum or Plasma 22 mg/dL 6-20 [facility] ([facility]) ID Date Data Source [id number] 10/07/2019 10:23:00 PM EDT [facility] Name Value Range Interpretation Code Description Data Paula rce(s) Supporting Document(s) Creatinine [Mass/volume] in Serum or Plasma 1.2 mg/dL 0.7-1.2 [facility] ([facility]) ID Date Data Source [id number] 10/07/2019 10:23:00 PM EDT [facility] ([facility] [employer] [facility]) Name Value Range Interpretation Code Description Data Paula rce(s) Supporting Document(s) Glucose [Mass/volume] in Serum or Plasma 125 mg/dL 70-99 [facility] ([facility] [place]) ID Date Data Source [id number] 10/07/2019 10:23:00 PM EDT [facility] ([facility]) Name Value Range Interpretation Code Description Data Paula rce(s) Supporting Document(s) Anion gap in Serum or Plasma 17 mmol/L 10-20 [facility] ([facility]) ID Date Data Source [id number] 10/07/2019 10:23:00 PM EDT [facility] ([facility]) Name Value Range Interpretation Code Description Data Paula rce(s) Supporting Document(s) Carbon dioxide, total [Moles/volume] in Serum or Plasma 26 mmol/L 22 -29 [facility] ([facility]) ID Date Data Source [id number] 10/07/2019 10:23:00 PM EDT [facility] ([facility]) Name Value Range Interpretation Code Description Data Paula rce(s) Supporting Document(s) Chloride [Moles/volume] in Serum or Plasma 103 mmol/L 98-107 [facility] ([facility]) ID Date Data Source [id number] 10/07/2019 10:23:00 PM EDT [facility] ([facility]) Name Value Range Interpretation Code Description Data Paula rce(s) Supporting Document(s) Potassium [Moles/volume] in Serum or Plasma 3.9 mmol/L 3.4-5.0 [facility] ([facility]) ID Date Data Source [id number] 10/07/2019 10:23:00 PM EDT [facility] ([facility]) Name Value Range Interpretation Code Description Data Paula rce(s) Supporting Document(s) Sodium [Moles/volume] in Serum or Plasma 142 mmol/L 136-145 [facility] ([facility]) ID Date Data Source [id number] 10/07/2019 10:23:00 PM EDT [facility] ([facility]) Name Value Range Interpretation Code Description Data Paula rce(s) Supporting Document(s) Nucleated erythrocytes/100 leukocytes [Ratio] in Blood by Ma nual count 0.0 % 0.0-0.0 [facility] ([facility]) ID Date Data Source [id number] 10/07/2019 10:23:00 PM EDT [facility] ([facility]) Name Value Range Interpretation Code Description Data Paula rce(s) Supporting Document(s) Immature granulocytes [#/volume] in Blood by Automated count 0.04 K/UL 0.00-0.04 [facility] ([facility]) ID Date Data Source [id number] 10/07/2019 10:23:00 PM EDT [facility] ([facility]) Name Value Range Interpretation Code Description Data Paula rce(s) Supporting Document(s) Immature granulocytes/100 leukocytes in Blood by Automated count 0.4 % 0.0-0.6 [facility] ([facility]) Immature granulocytes [#/volume] in Blood by Automated count 0.04 K/UL 0.00-0.04 [facility] ([facility]) ID Date Data Source [id number] 10/07/2019 10:23:00 PM EDT [facility] ([facility]) Name Value Range Interpretation Code Description Data Paula rce(s) Supporting Document(s) Basophils [#/volume] in Blood by Automated count 0.04 K/UL 0.00-0.20 [facility] ([facility] [place]) ID Date Data Source [id number] 10/07/2019 10:23:00 PM EDT [facility] ([facility]) Name Value Range Interpretation Code Description Data Paula rce(s) Supporting Document(s) Eosinophils [#/volume] in Blood by Automated count 0.19 K/UL 0.20-0. 40 [facility] ([facility]) ID Date Data Source [id number] 10/07/2019 10:23:00 PM EDT [facility] ([facility]) Name Value Range Interpretation Code Description Data Paula rce(s) Supporting Document(s) Monocytes [#/volume] in Blood by Automated count 0.74 K/UL 0.20-1.00 [facility] ([facility]) ID Date Data Source [id number] 10/07/2019 10:23:00 PM EDT [facility] ([facility]) Name Value Range Interpretation Code Description Data Paula rce(s) Supporting Document(s) Lymphocytes [#/volume] in Blood by Automated count 2.67 K/UL 0.80-2. 80 [facility] ([facility] [place]) ID Date Data Source [id number] 10/07/2019 10:23:00 PM EDT [facility] ([facility] [place]) Name Value Range Interpretation Code Description Data Paula rce(s) Supporting Document(s) Neutrophils [#/volume] in Blood by Automated count 5.88 K/UL 1.50-7. 50 [facility] ([facility] [place]) ID Date Data Source [id number] 10/07/2019 10:23:00 PM EDT [facility] ([facility]) Name Value Range Interpretation Code Description Data Paula rce(s) Supporting Document(s) Basophils/100 leukocytes in Blood by Automated count 0.4 % 0.0-3 .0 [facility] ([facility]) ID Date Data Source [id number] 10/07/2019 10:23:00 PM EDT [facility] ([facility]) Name Value Range Interpretation Code Description Data Paula rce(s) Supporting Document(s) Eosinophils/100 leukocytes in Blood by Automated count 2.0 % 0.0 -6.0 [facility] ([facility] [place]) ID Date Data Source [id number] 10/07/2019 10:23:00 PM EDT [facility] ([facility]) Name Value Range Interpretation Code Description Data Paula rce(s) Supporting Document(s) Monocytes/100 leukocytes in Blood by Automated count 7.7 % 2.0-1 2.0 [facility] ([facility] [place]) ID Date Data Source [id number] 10/07/2019 10:23:00 PM EDT [facility] ([facility]) Name Value Range Interpretation Code Description Data Paula rce(s) Supporting Document(s) Lymphocytes/100 leukocytes in Blood by Automated count 27.9 % 12. 0-44.0 [facility] ([facility]) ID Date Data Source [id number] 10/07/2019 10:23:00 PM EDT [facility] ([facility]) Name Value Range Interpretation Code Description Data Paula rce(s) Supporting Document(s) Neutrophils/100 leukocytes in Blood by Automated count 61.6 % 47. 0-76.0 [facility] ([facility]) ID Date Data Source [id number] 10/07/2019 10:23:00 PM EDT [facility] ([facility] [place]) Name Value Range Interpretation Code Description Data Paula rce(s) Supporting Document(s) Platelet mean volume [Entitic volume] in Blood 10.4 FL 8.7-12.3 [facility] ([facility]) ID Date Data Source [id number] 10/07/2019 10:23:00 PM EDT [facility] ([facility]) Name Value Range Interpretation Code Description Data Paula rce(s) Supporting Document(s) Platelets [#/volume] in Blood 248 K/UL 150-400 [facility] ([facility]) ID Date Data Source [id number] 10/07/2019 10:23:00 PM EDT [facility] ([facility]) Name Value Range Interpretation Code Description Data Paula rce(s) Supporting Document(s) Erythrocyte distribution width [Ratio] 12.8 % 0.0-16.0 [facility] ([facility]) ID Date Data Source [id number] 10/07/2019 10:23:00 PM EDT [facility] ([facility]) Name Value Range Interpretation Code Description Data Paula rce(s) Supporting Document(s) Erythrocyte mean corpuscular hemoglobin concentration [Mass/ volume] 34.0 g/dL 31.0-36.0 [facility] ([facility]) ID Date Data Source [id number] 10/07/2019 10:23:00 PM EDT [facility] ([facility]) Name Value Range Interpretation Code Description Data Paula rce(s) Supporting Document(s) Mean Corpuscular Hemoglobin 31.5 pg 26.0-33.0 [facility] ([facility]) ID Date Data Source [id number] 10/07/2019 10:23:00 PM EDT [facility] ([facility]) Name Value Range Interpretation Code Description Data Paula rce(s) Supporting Document(s) Erythrocyte mean corpuscular volume [Entitic volume] 92.8 FL 75.0- 105.0 [facility] ([facility]) ID Date Data Source [id number] 10/07/2019 10:23:00 PM EDT [facility] ([facility]) Name Value Range Interpretation Code Description Data Paula rce(s) Supporting Document(s) Hematocrit [Volume Fraction] of Blood 41.2 % 40.0-54.0 [facility] ([facility]) ID Date Data Source [id number] 10/07/2019 10:23:00 PM EDT [facility] ([facility]) Name Value Range Interpretation Code Description Data Paula rce(s) Supporting Document(s) Hemoglobin [Mass/volume] in Blood 14.0 g/dL 13.5-17.5 [facility] ([facility]) ID Date Data Source [id number] 10/07/2019 10:23:00 PM EDT [facility] Name Value Range Interpretation Code Description Data Paula rce(s) Supporting Document(s) Erythrocytes [#/volume] in Blood by Automated count 4.44 M/UL 4.20-6 .20 [facility] ID Date Data Source [id number] 10/07/2019 10:23:00 PM EDT [facility] ([facility]) Name Value Range Interpretation Code Description Data Paula rce(s) Supporting Document(s) Leukocytes [#/volume] in Blood by Automated count 9.6 k/UL 4.3-11.0 [facility] ID Date Data Source [id number] 10/07/2019 10:23:00 PM EDT [facility] ([facility]) Name Value Range Interpretation Code Description Data Paula rce(s) Supporting Document(s) Hemolysis index of Serum or Plasma Laboratory test result [facility] ([facility]) ID Date Data Source [id number] 10/07/2019 10:23:00 PM EDT [facility] Name Value Range Interpretation Code Description Data Paula rce(s) Supporting Document(s) Lipase [Enzymatic activity/volume] in Serum or Plasma 29 U/L 13-6 0 [facility] ([facility] [facility]) ID Date Data Source [id number] 10/07/2019 10:23:00 PM EDT [facility] ([facility] [employer] [facility]) Name Value Range Interpretation Code Description Data Paula rce(s) Supporting Document(s) Estimated GFR (MDRD) Laboratory test result [facility] ([facility] [place]) ID Date Data Source [id number] 10/07/2019 10:23:00 PM EDT [facility] ([facility] [employer] [facility] [employer]) Name Value Range Interpretation Code Description Data Paula rce(s) Supporting Document(s) Alanine aminotransferase [Enzymatic activity/volume] in Seru m or Plasma 21 U/L 0-41 [facility] ([facility]) ID Date Data Source [id number] 10/07/2019 10:23:00 PM EDT [facility] ([facility] [employer] [facility] [employer]) Name Value Range Interpretation Code Description Data Paula rce(s) Supporting Document(s) Aspartate aminotransferase [Enzymatic activity/volume] in Serum or Plasma 16 U/L 0-40 [facility] ID Date Data Source [id number] 10/07/2019 10:23:00 PM EDT [facility] ([facility] [employer] [facility]) Name Value Range Interpretation Code Description Data Paula rce(s) Supporting Document(s) Alkaline phosphatase [Enzymatic activity/volume] in Serum or Plasma 58 U/L 40-129 [facility]) ID Date Data Source [id number] 10/07/2019 10:23:00 PM EDT [facility] ([facility] [employer] [facility]) Name Value Range Interpretation Code Description Data Paula rce(s) Supporting Document(s) Bilirubin.direct [Mass/volume] in Serum or Plasma Laboratory test result 0.0-0.3 [facility] ([facility]) ID Date Data Source [id number] 10/07/2019 10:23:00 PM EDT [facility] ([facility] [employer] [facility]) Name Value Range Interpretation Code Description Data Paula rce(s) Supporting Document(s) Bilirubin.total [Mass/volume] in Serum or Plasma 0.2 mg/dL 0.0-1.2 [facility] ([facility] [employer] [facility]) ID Date Data Source [id number] 10/07/2019 10:23:00 PM EDT [facility] ([facility] [employer] [facility]) Name Value Range Interpretation Code Description Data Paula rce(s) Supporting Document(s) Albumin [Mass/volume] in Serum or Plasma 4.7 g/dL 3.5-5.2 [facility] ([facility] [employer] [facility]) ID Date Data Source [id number] 10/07/2019 10:23:00 PM EDT [facility] ([facility] [employer] [facility]) Name Value Range Interpretation Code Description Data Paula rce(s) Supporting Document(s) Protein [Mass/volume] in Serum or Plasma 7.9 g/dL 6.4-8.3 [facility] ([facility] [employer] [facility]) ID Date Data Source [id number] 10/07/2019 10:23:00 PM EDT [facility] ([facility] [employer] [facility]) Name Value Range Interpretation Code Description Data Paula rce(s) Supporting Document(s) Calcium [Mass/volume] in Serum or Plasma 9.6 mg/dL 8.6-10.2 [facility] ([facility] [employer]) ID Date Data Source [id number] 10/07/2019 11:04:00 PM EDT [facility] Name Value Range Interpretation Code Description Data Paual rce(s) Supporting Document(s) WBC 9.6 k/UL 4.3-11.0 [facility] Ce nter RBC 4.44 M/UL 4.20-6.20 [facility] nter HEMOGLOBIN 14.0 G/DL 13.5-17.5 [facility] C enter HEMATOCRIT 41.2 % 40.0-54.0 [facility] C enter MCV 92.8 FL 75.0-105.0 [facility] C enter MCH 31.5 PG 26.0-33.0 [facility] Ce nter MCHC 34.0 G/DL 31.0-36.0 [facility] nter RED CELL DISTRIBUTION WIDTH 12.8 % 0.0-16.0 On [facility] PLATELET COUNT 248 K/UL 150-400 [facility] MEAN PLATELET VOLUME 10.4 FL 8.7-12.3 [facility] NEUTROPHILS AUTOMATED 61.6 % 47.0-76.0 [facility] LYMPHOCYTE AUTOMATED 27.9 % 12.0-44.0 [facility] MONOCYTES AUTOMATED 7.7 % 2.0-12.0 [facility] EOSINOPHILS AUTOMATED 2.0 % 0.0-6.0 [facility] BASOPHILS AUTOMATED 0.4 % 0.0-3.0 [facility] ABS.NEUTROPHILS AUTOMATED 5.88 K/UL 1.50-7.50 [facility] ABS. LYMPHOCYTES AUTOMATED 2.67 K/UL 0.80-2.80 [facility] ABS.MONOCYTES AUTOMATED 0.74 K/UL 0.20-1.00 [facility] ABS. EOSINOPHILS AUTOMATED 0.19 K/UL 0.20-0.40 L [facility] ABS. BASOPHILS AUTOMATED 0.04 K/UL 0.00-0.20 [facility] IMMATURE GRANULOCYTE 0.4 % 0.0-0.6 [facility] ABS IMMATURE GRANULOCYTE 0.04 K/UL 0.00-0.04 [facility] NUCLEATED RBC 0.0 % 0.0-0.0 [facility] ID Date Data Source [id number] 10/07/2019 11:12:00 PM EDT [facility] Name Value Range Interpretation Code Description Data Paula rce(s) Supporting Document(s) TOTAL PROTEIN 7.9 G/DL 6.4-8.3 [facility] ALBUMIN 4.7 G/DL 3.5-5.2 [facility] nter BILIRUBIN,TOTAL 0.2 MG/DL 0.0-1.2 [facility] BILIRUBIN,DIRECT < 0.2 MG/DL 0.0-0.3 [facility] Center ALKALINE PHOSPHATASE 58 U/L 40-129 [facility] AST 16 U/L 0-40 [facility] nter ALT 21 U/L 0-41 [facility] nter SPECIMEN COMMENT SLIGHTLY HEMOLYZED MG/DL [facility] ID Date Data Source [id number] 10/07/2019 11:12:00 PM EDT [facility] Name Value Range Interpretation Code Description Data Paula rce(s) Supporting Document(s) SODIUM 142 MMOL/L 136-145 [facility] enter POTASSIUM 3.9 MMOL/L 3.4-5.0 [facility] enter CHLORIDE 103 MMOL/L 98-107 [facility] enter CO2 26 MMOL/L 22-29 [facility] nter ANION GAP 17 MMOL/L 10-20 [facility] nter GLUCOSE 125 MG/DL 70-99 H [facility] nter CREATININE 1.2 MG/DL 0.7-1.2 [facility] C enter BUN 22 MG/DL 6-20 H [facility] nter CALCIUM 9.6 MG/DL 8.6-10.2 [facility] nter GFR > 60 ML/MIN [facility] Estimated Glomerular Filtration Rate is estimated based onthe MDRD equation, which assumes a steady state forcreatinine (Rosalina Int Med [phone], 2003),as recommended bythe National Kidney Disease Education Program in conjunctionwith the NIH and the National Kidney Foundation. eGFR may beinaccurate in many clinical situations. An eGFR of < 60mL/min suggests chronic renal disease only if consistentover three months.Interpretive Guidelines: Stage Description eGFR (mL/min/1.73 m2) 1 or 2 Normal or Mildly Decreased GFR >60 3 Moderately Decreased GFR 30 - 59 4 Severely Decreased GFR 15 - 29 5 Kidney Failure <15 ID Date Data Source [id number] 10/07/2019 11:12:00 PM EDT [facility] Name Value Range Interpretation Code Description Data Paula rce(s) Supporting Document(s) LIPASE 29 U/L 13-60 [facility] nter ID Date Data Source [id number] 10/07/2019 10:17:00 PM EDT [facility] Hx of Present Ill.-Male Chief Co mplaint: Flank Pain Reason for Visit: ABN PAIN LEFT SIDE Time Seen by Provider: 10/07/19 22:05 Source: patient Exam Limitations: no limitations Initial Comments: 10/07/19 22:17 Patient is a 58 year old male with a hx of hld, kidney stone at 19 who presents to the ED with left sided flank pain that radiates to left abdomen. Reports that it started around 2-3 pm and is constantly achey but episodically gets worse. Reports that he tried heat and ice and nothing makes it better or worse. It is a sharp pain. Denies fevers, chills, chest pain, shortness of breath, nausea, vomiting or diarrhea. Reports that he started to have urinary symptoms as well with hematuria. Reports that it is somewhat similar to his stones in the past. 10/08/19 01:13 Allergies: No Known Allergies Allergy (Verified 10/07/19 22:07) Home Medications: Nadolol [Corgard*] 20 mg PO DAILY 04/27/13 [Confirmed 04/27/13] Simvastatin* [Zocor*] 20 mg PO HS 04/27/13 [Co nfirmed 04/27/13] Tamsulosin* [Flomax*] 0.4 mg PO DAILY #10 capsule 10/08/19 Past History-Male Smoking History: Smoking Status Never Smoked Alcohol and Substance Use: Do you drink alcohol? No Do you currently use any No social/recreational drugs? Do you have a history of drug/ No substance abuse, addiction Review of Systems- Review of Systems Unobtainable Due To: Reports: no limitations Constitutional: Reports: no symptoms reported EENTM: Reports: no symptoms reported Respiratory: Reports: no symptoms reported Cardiac: Reports: no symptoms reported Gastrointestinal/Abdominal: Reports: see HPI Genitourinary: Reports: see HPI Musculoskeletal: Reports: see HPI Skin: Reports: no symptoms reported Neurological: Reports: no symptoms reported Psychiatric: Reports: no symptoms reported Endocrine: Reports: no symptoms reported Hematologic/Lymphatic: Reports: no symptoms reported Immunological/Allergic: Reports: no symptoms reported All Other Systems: Reviewed and Negative Physical Exam-Male General Appearance: mild distress Eyes, Ears, Nose, Throat Exam: PERRL/EOMI, normal ENT inspection, TMs normal Neck: non-tender, supple, normal inspection Respiratory: chest non-tender, lung sounds clear, normal breath sounds Cardiovascular/Chest: normal peripheral pulses, regular rate, regular rhythm GI/Abdominal: normal bowel sounds, soft - minimal left sided tenderness Rectal Exam: deferred Back Exam: normal inspection, no vertebral tenderness, CVA tenderness (L) - minimal, no midline back tenderness Extremity: normal range of motion, normal inspection Neurologic: alert, no motor/sensory deficits Skin Exam: normal color, warm Lymphatic: no lymphadenopathy Medical Decision Making IV Fluids Ordered for Hydration?: Yes Orders, Meds: Discontinued Medications Sodium Chloride (Normal Saline*) 500 mls @ 1,000 mls/hr IV BOLUS ONE Stop: 10/07/19 22:45 Last Infusion: 10/07/19 23:15 Dose: Infused Documented by: Ketorolac Tromethamine (Toradol*) 15 mg IVP ONCE ONE Stop: 10/07/19 23:28 Last Admin: 10/07/19 23:31 Dose: 15 mg Documented by: Morphine Sulfate (Morphine (Injection)*) 2 mg IVP ONCE ONE Stop: 10/07/19 22:17 Last Admin: 10/07/19 22:43 Dose: 2 mg Documented by: Ondansetron HCl (Zofran*) 4 mg IVP ONCE ONE Stop: 10/07/19 22:17 Last Admin: 10/07/19 22:42 Dose: 4 mg Documented by: Tamsulosin HCl (Flomax*) 0.4 mg PO ONCE ONE Stop: 10/08/19 01:00 10/07/19 22:15 URINALYSIS Stat URINE MICROSCOPIC Stat 10/07/19 22:16 CT ABDOMEN/PELVIS Stat 10/07/19 22:23 BASIC PROFILE Stat CBC Stat HEPATIC PROFILE Stat LIPASE Stat 10/08/19 01:00 Urine Strainer To Go ONCE Temp Pulse Resp BP Pulse Ox 10/07/19 23:27 36.8 C 84 18 162/86 H 98 10/07/19 22:03 36.9 C 84 18 174/95 H 99 Hem: 10/07/19 Range/Units 22:23 WBC 9.6 (4.3-11.0) k/UL RBC 4.44 (4.20-6.20) M/UL Hgb 14.0 (13.5-17.5) G/DL Hct 41.2 (40.0-54.0) % MCV 92.8 (75.0- 105.0) FL MCH 31.5 (26.0-33.0) PG MCHC 34.0 (31.0-36.0) G/DL RDW 12.8 (0.0-16.0) % Plt Count 248 (150-400) K/UL MPV 10.4 (8.7-12.3) FL Immature Gran % (Auto) 0.4 (0.0-0.6) % Neut % (Auto) 61.6 (47.0-76.0) % Lymph % (Auto) 27.9 (12.0-44.0) % Alpine % (Auto) 7.7 (2.0-12.0) % Eos % (Auto) 2.0 (0.0-6.0) % Baso % (Auto) 0.4 (0.0-3.0) % Neut # (Auto) 5.88 (1.50-7.50) K/UL Lymph # (Auto) 2.67 (0.80-2.80) K/UL Alpine # (Auto) 0.74 (0.20-1.00) K/UL Eos # (Auto) 0.19 L (0.20-0.40) K/UL Baso # (Auto) 0.04 (0.00-0.20) K/UL Abs Immat Gran (auto) 0.04 (0.00-0.04) K/UL Nucleated RBCs 0.0 (0.0-0.0) % WNL Chem: 10/07/19 Range/Units 22:23 Sodium 142 (136-145) MMOL/L Potassium 3.9 (3.4-5.0) MMOL/L Chloride 103 (98- 107) MMOL/L Carbon Dioxide 26 (22-29) MMOL/L Anion Gap 17 (10-20) MMOL/L BUN 22 H (6-20) MG/DL Creatinine 1.2 (0.7-1.2) MG/DL Estimated GFR (MDRD) > 60 ML/MIN Glucose 125 H (70-99) MG/DL Calcium 9.6 (8.6-10.2) MG/DL Total Bilirubin 0.2 (0.0-1.2) MG/DL Direct Bilirubin < 0.2 (0.0-0.3) MG/DL AST 16 (0-40) U/L ALT 21 (0-41) U/L Alkaline Phosphatase 58 (40-129) U/L Total Protein 7.9 (6.4-8.3) G/DL Albumin 4.7 (3.5-5.2) G/DL Lipase 29 (13-60) U/L Specimen Comment Slightly hemolyzed MG/DL WNL Urines: 10/07/19 Range/Units 22:15 Urine Color Yellow Urine Appearance Cloudy Urine pH 7.5 (5.0 - 8.0) Ur Specific [place] 1.017 (1.005-1.025) Urine Protein Trace (0-30) MG/DL Urine Ketones Negative (0-14) MG/DL Urine Blood Moderate H (NEGATIVE) Urine Nitrite Negative (NEGATIVE) Urine Bilirubin Negative (NEGATIVE) Urine Urobilinogen 0.2 (0.2-1.0) EU/DL Ur Leukocyte Esterase Negative (NEGATIVE) Urine RBC 70-80 H (0 - 2) /HPF Urine WBC 0-2 (0 - 5) /HPF Ur Epithelial Cells 0-2 (0 - 5) /HPF Amorphous Sediment 2+ /HPF Urine Bacteria None seen (0 - 1+) Urine Glucose Negative (0 - 99) MG/DL Urine Studies Interpretation: Essent Normal Progress: 10/08/19 01:10 Labs WNL. Pain controlled. CT showed 2 mm stone with mild hydro. Patient prefers to go home and f/u as outpt. Pain controlled. Tolerated PO challange. Discussed case with Dr. Aguirre who is agreeable to follow up as an outpatient. Agrees no indication for antibiotics. Agrees with decision to send home w/ pain control and w/ urine strainer and flomax. Spoke with pt about return precautions including but not limited to f/c/n/v/uncontrolled pain. Vital signs stable at discharge. Patient is ambulating without difficulty. Patient is tolerating PO. Patient feels better and feels comfortable going home. Patient will be discharged and is advised to follow with their primary care physician within 24 hours. Patient was given both verbal and written discharge instructions. Discussion was had with patient regarding assessment and plan. Patient was provided with indications to seek urgent/emergent care. Questions were answered. Patient vocalized understanding and agreement with plan. Re- Eval/Notes: 10/07/19 22:22 Labs, UA were ordered. CT a/p w/out contrast was ordered as at this point in time, sx are most consistent with a kidney stone. Sx control was ordered. Departure Time of Disposition: 01:01 Disposition: HOME/SELF ROUTINE Clinical Impression: Kidney stone Condition: IMPROVED Referrals: Gerard Anderson MD [Primary Care Provider] - Baldo Aguirre MD [STAFF PHYSICIAN] - Prescriptions: Tamsulosin* [Flomax*] 0.4 mg PO DAILY #10 capsule Comments: Please follow up with the urologist and your PCP within 24 hours. Please return to the ED for any new, worsening or concerning signs or symptoms. Name Value Range Interpretation Code Description Data Paula rce(s) Supporting Document(s) ID Date Data Source [id number] 10/07/2019 10:15:00 PM EDT [facility] ([facility] [place] Name Value Range Interpretation Code Description Data Paula rce(s) Supporting Document(s) pH of Urine by Test strip 7.5 [facility] ([facility] [facility] [employer] [place]) ID Date Data Source [id number] 10/07/2019 10:15:00 PM EDT [facility] ([facility] [place]) Name Value Range Interpretation Code Description Data Paula rce(s) Supporting Document(s) Hemoglobin [Presence] in Urine by Test strip Laboratory test result [facility] ([facility] [employer] [facility] [facility] [employer] [place]) ID Date Data Source [id number] 10/07/2019 10:15:00 PM EDT [facility] ([facility] [facility] [place]) Name Value Range Interpretation Code Description Data Paula rce(s) Supporting Document(s) Ketones [Mass/volume] in Urine by Test strip Laboratory test result [facility] ([facility] [facility] [place]) ID Date Data Source [id number] 10/07/2019 10:15:00 PM EDT [facility] ([facility] [employer] [facility]) Name Value Range Interpretation Code Description Data Paula rce(s) Supporting Document(s) Bilirubin.total [Presence] in Urine by Test strip Laboratory test res ult [facility] ([facility] [employer] [facility] [employer] [place]) ID Date Data Source [id number] 10/07/2019 10:15:00 PM EDT [facility] ([facility] [employer]) Name Value Range Interpretation Code Description Data Paula rce(s) Supporting Document(s) Glucose [Presence] in Urine by Test strip Laboratory test result [facility] ([facility] [facility] [employer] [place] ID Date Data Source [id number] 10/07/2019 10:15:00 PM EDT [facility] ([facility] [employer]) Name Value Range Interpretation Code Description Data Paula rce(s) Supporting Document(s) Specific gravity of Urine by Automated test strip 1.017 [facility] ([facility] [facility] [place] ID Date Data Source [id number] 10/07/2019 10:15:00 PM EDT [facility] ([facility] [employer]) Name Value Range Interpretation Code Description Data Paula rce(s) Supporting Document(s) Appearance of Urine Laboratory test result [facility] ([facility] [facility] [place]) ID Date Data Source [id number] 10/07/2019 10:15:00 PM EDT [facility] ([facility] [facility] [place]) Name Value Range Interpretation Code Description Data Paula rce(s) Supporting Document(s) Color of Urine by Auto Laboratory test result [facility] ([facility] [facility] [place]) ID Date Data Source [id number] 10/07/2019 10:15:00 PM EDT [facility] ([facility] [place]) Name Value Range Interpretation Code Description Data Paula rce(s) Supporting Document(s) Amorphous sediment [Presence] in Urine sediment by Lig ht microscopy Laboratory test result [facility] ([facility]) ID Date Data Source [id number] 10/07/2019 10:15:00 PM EDT [facility] ([facility] [employer] [facility]) Name Value Range Interpretation Code Description Data Paula rce(s) Supporting Document(s) Epithelial cells.squamous [#/area] in Ur ine sediment by Microscopy high power field Laboratory test result [facility] ([facility] [place]) ID Date Data Source [id number] 10/07/2019 10:15:00 PM EDT [facility] ([facility] [facility]) Name Value Range Interpretation Code Description Data Paula rce(s) Supporting Document(s) Bacteria [#/area] in Urine sediment by Microscopy high power field Laboratory test result [facility] ([facility]) ID Date Data Source [id number] 10/07/2019 10:15:00 PM EDT [facility] ([facility] [facility]) Name Value Range Interpretation Code Description Data Paula rce(s) Supporting Document(s) Erythrocytes [Presence] in Urine Laboratory test result [facility] ([facility] [facility] [facility]) ID Date Data Source [id number] 10/07/2019 10:15:00 PM EDT [facility] ([facility] [employer]) Name Value Range Interpretation Code Description Data Paula rce(s) Supporting Document(s) Leukocytes [Presence] in Urine by Automated Laboratory test result [facility] ([facility] [facility] [facility]) ID Date Data Source [id number] 10/07/2019 10:15:00 PM EDT [facility] ([facility] [employer]) Name Value Range Interpretation Code Description Data Paula rce(s) Supporting Document(s) Leukocyte esterase [Presence] in Urine by Test strip Laboratory turner t result [facility] ([facility] [place]) ID Date Data Source [id number] 10/07/2019 10:15:00 PM EDT [facility] ([facility] [place]) Name Value Range Interpretation Code Description Data Paula rce(s) Supporting Document(s) Nitrite [Presence] in Urine by Test strip Laboratory test result [facility] ([facility] [facility] [place]) ID Date Data Source [id number] 10/07/2019 10:15:00 PM EDT [facility] ([facility] [facility] [facility]) Name Value Range Interpretation Code Description Data Paula rce(s) Supporting Document(s) Urobilinogen [Mass/volume] in Urine by Test strip 0.2 EU/DL [facility] ([facility] [facility] [place]) ID Date Data Source [id number] 10/07/2019 10:15:00 PM EDT [facility] ([facility] [employer] [facility]) Name Value Range Interpretation Code Description Data Paula rce(s) Supporting Document(s) Protein [Mass/volume] in Urine by Test strip Laboratory test result [facility] ([facility] [employer] [facility]) ID Date Data Source [id number] 10/07/2019 11:19:00 PM EDT [facility] Urine Specimen Collection Method Clean C atchUrine Specimen Collection on Ice NUrine Specimen Collection Container Labeled Urine Specimen Collection Method Clean C atchUrine Specimen Collection on Ice NUrine Specimen Collection Container Labeled Name Value Range Interpretation Code Description Data Paula rce(s) Supporting Document(s) URINE WBC 0-2 /HPF 0 - 5 [facility] Ce nter URINE RBC 70-80 /HPF 0 - 2 A [facility] enter URINE BACTERIA NONE SEEN 0 - 1+ [facility] URINE EPITHELIAL CELLS 0-2 /HPF 0 - 5 [facility] URINE AMORPHOUS SEDIMENT 2+ /HPF [facility] ID Date Data Source [id number] 10/07/2019 11:19:00 PM EDT [facility] Urine Specimen Collection Method Clean C atchUrine Specimen Collection on Ice NUrine Specimen Collection Container Labeled Urine Specimen Collection Method Clean C atchUrine Specimen Collection on Ice NUrine Specimen Collection Container Labeled Name Value Range Interpretation Code Description Data Paula rce(s) Supporting Document(s) URINE COLOR YELLOW [facility] URINE APPEARANCE CLOUDY [facility] URINE SPECIFIC GRAVITY 1.017 1.005-1.025 [facility] URINE GLUCOSE NEGATIVE MG/DL 0 - 99 [facility] URINE BILIRUBIN NEGATIVE NEGATIVE [facility] URINE KETONES NEGATIVE MG/DL 0-14 [facility] URINE BLOOD MODERATE NEGATIVE A [facility] URINE pH 7.5 5.0 - 8.0 [facility] Ce nter URINE PROTEIN TRACE MG/DL 0-30 [facility] URINE UROBILINOGEN 0.2 EU/DL 0.2-1.0 [facility] URINE NITRITE NEGATIVE NEGATIVE [facility] URINE LEUKOCYTE ESTERASE NEGATIVE NEGATIVE [facility] ID Date Data Source [id number] 09/07/2019 10:50:20 PM EDT [facility], PCName: Fercho MurraymanDOB: 1960Provider: Clovisrodney GauridenisaDOS: 09/01/2019 Chief ComplaintNeck pain and back pain Chief Complaint 2NYSW VAS PAIN Established: ZULEMA completing section: [facility] Telemedicine - Explanation to patient regarding Telemedicine: Explanation to patient regaridng telemedicine Patient initiated contact with the office via phone call or via patient portal to schedule a Telehealth visit. I explained to the patient that telemedicine is the practice of using telecommunications technology to evaluate, diagnose and care for patients at a distance. Telehealth visits are a way for [facility] to continue providing quality care to our patients while still practicing mandated social distancing, in emergency effort to keep both the patient and myself safe throughout the COVID-19 pandemic. During this emergent initiation of Telemedicine, the office of civil rights has loosened the laws on HIPAA compliance to accommodate the continuation of medical care across the [place] throughout the COVID-19 pandemic. [facility] Telemedicine - TV Consent Established: Telehealth Consent Tyshawn Ray is an established patient of [facility], and was made aware co-pays and co-insurance are waived due to COVID-19, as well as, the potential privacy risks with the use of third-green party applications as a result of this Telehealth visit. The patient has verbalized consent to proceed with a Telehealth visit via audio with live video calling. History of Present IllnessThe patient is being seen for Televideo call Pain Duration: years Pain Quality: (Nociceptive) aching and sharp Progression: unchanged Palliation: opioid analgesics and resting/laying down Exacerbating: walking Pain Score: a current pain level of 6/10 and a maximum pain level of 10/10. Condition type: The patient is being seen for a chronic condition. PAIN LOCATION: the pain is located in the neck, the pain is located in the low back and the pain is located in the mid-back . REVIEW OF PAST DIAGNOSTICS: have included: MRI, x-rays and bone scan . Records were obtained, reviewed and on file. PAST TREATMENT has included: ANTICONVULSANTS (effective) Includes Topamax., MUSCLE RELAXANTS (effective) Includes Cyclobenzaprine ., OPIOID ANALGESICS (effective) Includes Hydrocodone and Oxycodone. INTERVAL EVENTS: include no significant change impacting patients medical condition. ASSOCIATED SYMPTOMS: include difficulty walking and muscle pain/spasm, but not radiating, no fecal incontinence, no extremity weakness and no urinary incontinence. FUNCTIONAL LIMITATIONS: The patient's functional status is limited as follows: ability to participate in hobbies and perform housework. MEDICATION SIDE EFFECTS experienced by patient are: no known medication side effects. Review of SystemsROS was reviewed with patient; I feel the ROS to be negative/normal. Active Problems 1. Carpal tunnel syndrome (354.0) (G56.00) 2. Cervical postlaminectomy syndrome (722.81) (M96.1) 3. Cervical radiculopathy (723.4) (M54.12) 4. Chronic pain (338.29) (G89.29) 5. Encounter for long-term (current) use of medications (V58.69) (Z79.899) 6. History of heart surgery (V15.1) (Z98.890) 7. Implantable Cardioverter-Defibrillator 8. Joint pain, knee (719.46) (M25.569) 9. 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 Low back pain (724.2) (M54.5) 11. Lumbar herniated disc (722.10) (M51.26) 12. Myofascial pain syndrome (729.1) (M79.18) 13. Postherpetic neuralgia (053.19) (B02.29) 14. 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) Allergies No Known Drug Allergies Updated By: Florentino Young; 05/09/2016 8:56:03 AMDenied Adhesive Tape Recorded By: Rachell Bradford; 10/09/2011 12:42:04 PM Iodinated Contrast Media Recorded By: Leonid Gillespie; 09/02/2015 11:01:30 AM Latex Recorded By: Rachell Bradford; 10/09/2011 12:42:04 PM Current Meds amLODIPine Besylate 2.5 MG Oral Tablet;Therapy: 28Apr2015 to Recorded Aspirin 81 MG TABS;Therapy: (Recorded:24Sep2017) to RecordedLD 09/24/17 am Budeprion SR 100 MG TB12;Therapy: (Recorded:15Jan2012) to Recorded Cyclobenzaprine HCl - 10 MG Oral Tablet; take 1 tablet by mouth three times a day ASNEEDED FOR MUSCLE SPASM MDD:3 Requested for: 09Jul2019; Last Rx:[id number] Fish Oil CAPS;Therapy: (Recorded:15Oct2011) to Recorded Flonase SUSP;Therapy: (Recorded:15Oct2011) to Recorded Horizant 300 MG Oral Tablet Extended Release; one tablet at evening meal MDD:1;Therapy: 02Aug2016 to (Evaluate:07Oct2017) Requested for: 16Jul2018; LastRx:09Jul2017 Orderedlong time HYDROcodone-Acetaminophen 10-325 MG Oral Tablet; TAKE 1 TABLETS EVERY 8-12HOURS NEEDED FOR PAIN. MDD:3;Therapy: 17Sep2011 to (Evaluate:11Cdu8141) Requested for: 21Aug2019; LastRx:21Aug2019 OrderedLD-06/15/19 9PM LaMICtal 25 MG Oral Tablet;Therapy: (Recorded:15Oct2011) to Recorded Lidocaine 5 % External Patch; APPLY 1-2 PATCH TO AFFECTED AREA 12 HRS ON, 12HRS OFFCode D, Dx: 722.81 MDD:2Code D, Dx: 722.81;Therapy: 65Oaj1756 to (Evaluate:12Tdy1808) Requested for: 33Als9314; LastRx:20Jul2014 Ordered Magnesium 500 MG Oral Capsule; One tablet daily MDD:1;Therapy: 99Zkz4041 to (Evaluate:04Jul2019) Requested for: 99Qej4656; LastRx:62Qtz9625 Ordered Multi Vitamin/Minerals TABS;Therapy: (Recorded:15Oct2011) to Recorded Naproxen 500 MG Oral Tablet; TK 1 T PO BID WITH FOOD MDD:2;Therapy: 08May2018 to (Evaluate:79Mex6796) Requested for: 07Jul2019; LastRx:07Jul2019 Ordered Nortriptyline HCl - 10 MG Oral Capsule; 1 tab po hs MDD:1 Requested for: 09Jul2019;Last Rx:09Jul2019 Ordered Omeprazole 20 MG Oral Capsule Delayed Release; TAKE 1 CAPSULE DAILY. MDD:1 Requested for: 09Jul2019; Last Rx:09Jul2019 Ordered Simvastatin 10 MG Oral Tablet;Therapy: (Recorded:15Oct2011) to Recorded Topiramate 200 MG Oral Tablet;Therapy: (Recorded:12Jun2018) to Recorded Vitamin B-1 100 MG Oral Tablet;Therapy: 29Dec2013 to Recorded Voltaren 1 % Transdermal Gel; 4gms to affected area 4 times a day;Therapy: 16Oct2012 to (Evaluate:17Nov2014) Requested for: 36Jqe9109; LastRx:20Jul2014 Ordered Past Medical History History of Bradycardia (427.89) (R00.1) Denied: History of blood coagulation disorder History of low back pain (V13.59) (Z87.39) History of syncope (V15.89) (Z87.898) History of Neck pain (723.1) (M54.2) Denied: History of Taking Blood Thinners Surgical History Denied: History of Cardioverter defibrillator insertion History of Neck Surgery fusion History of Permanent Pacemaker Type Family History Denied: Family history of No Significant Family History Social History Current non-drinker of alcohol (V49.89) (Z78.9) Currently On Disability Denied: History of Drug Use Marital History - Currently Never smoker Physical ExamGeneral: The patient is a well nourished/well developed, male, heavy set, who is in no acute distress and appears stated age. Psychological: Alert and oriented to person, place and time. Mood and affect are pleasant and appropriate. Judgement intact. Insight normal without delusions or hallucinations. Denies suicidal/homicidal ideation. Results/DataThis patient had a urine drug screen on 06/16/2019. Results are in compliance. Assessment 1. Chronic pain (338.29) (G89.29) 2. Low back pain (724.2) (M54.5) 3. Cervical postlaminectomy syndrome (722.81) (M96.1) 4. halfway current use of opiate analgesic (V58.69) (Z79.891) Plan 1. Follow-up in 2 months Follow Up Follow-up Status: Hold For - Scheduling Requested for: [id number] Appointment for 15 or 30 minutes : Schedule 15 minute appointment Medication:. Due to the current COVID-19 pandemic, telemedicine does not allow for the collection of urine drug screening for initiation or chronic use of opioid medications. Patient will be subject to urine drug screening at next in-office visit. Medication list was reviewed with the patient, and updates were made to reflect her current medication regimen. Allergy list was reviewed with patient, and any necessary changes were made. Treatment includes: FOLLOW UP: The patient should have a follow up visit in 2 months. TIme:. Time: Start time: 10:09 A.M. End time: 10:14 A.M. Discussion/Pksictr04-xjvx-dmm male patient with chronic cervical and lumbar pain. He is currently stable on medications at this time. This visit was done via video telehealth due to the Covid 19 pandemic. Patient will follow up in the office in 2 months time. [employer] DisclaimerNYS[employer] Disclaimer: This document was dictated and electronically signed using [employer] software. A reasonable attempt at proof reading has been made to minimize errors. Please call with any questions. Signatures Electronically signed by : Edith Tovar NP; Sep 01 2019 10:19AM EST (Author) Electronically signed by : Aime Jain MD; Sep 07 2019 10:50PM EST Name Value Range Interpretation Code Description Data Paula baltazar(s) Supporting Document(s) ID Date Data Source [id number] 08/26/2019 01:57:36 AM [facility] Name Value Range Interpretation Code Description Data Paula rce(s) Supporting Document(s) ED Provider Note [facility] QTIEMq3gOwNWUoPt10/SDNfxHLQab9IaUQsxGXz0VVarQNEdT0JwFAM2aO4cRNB8IIhMKePmKqObZdF2 lbm [file] AgICAgICAgICAgICAgICAgICAgICAgICAgICAgICAgICAgICAgICAgICAgICAgICAgICAgICAgICAgIC AgICAgICAgICAgICAgICAgICAgICAgICAgICANCiAg ICAgICAgICAgICAgICAgICAgICAgICAgICAgICAgICAgICAgICAgICAgICAgICAgICAgICAgICAgICAg ICAgICAgICAgICAgICAgICAgICAgICAgICAgICAgICAgICAgICANCiAgICAgICAgICAgICAgICAgICAg ICAgICAgICAgICAgICAgICAgICAgICAgICAgICAgIC AgICAgICAgICAgICAgICAgICAgICAgICAgICAgICAgICAgICAgICAgICAgICAgICANCiAgICAgICAgIC AgICAgICAgICAgICAgICAgICAgICAgICAgICAgICAgICAgICAgICAgICAgICAgICAgICAgICAgICAgIC AgICAgICAgICAgICAgICAgICAgICAgICAgICAgICAN CiAgICAgICAgICAgICAgICAgICAgICAgICAgICAgICAgICAgICAgICAgICAgICAgICAgICAgICAgICAg ICAgICAgICAgICAgICAgICAgICAgICAgICAgICAgICAgICAgICAgICANCiAgICAgICAgICAgICAgICAg ICAgICAgICAgICAgICAgICAgICAgICAgICAgICAgIC AgICAgICAgICAgICAgICAgICAgICAgICAgICAgICAgICAgICAgICAgICAgICAgICAgICANCiAgICAgIC AgICAgICAgICAgICAgICAgICAgICAgICAgICAgICAgICAgICAgICAgICAgICAgICAgICAgICAgICAgIC AgICAgICAgICAgICAgICAgICAgICAgICAgICAgICAg ICANCiAgICAgICAgICAgICAgICAgICAgICAgICAgICAgICAgICAgICAgICAgICAgICAgICAgICAgICAg ICAgICAgICAgICAgICAgICAgICAgICAgICAgICAgICAgICAgICAgICAgICANCiAgICAgICAgICAgICAg ICAgICAgICAgICAgICAgICAgICAgICAgICAgICAgIC AgICAgICAgICAgICAgICAgICAgICAgICAgICAgICAgICAgICAgICAgICAgICAgICAgICAgICANCiAgIC AgICAgICAgICAgICAgICAgICAgICAgICAgICAgICAgICAgICAgICAgICAgICAgICAgICAgICAgICAgIC AgICAgICAgICAgICAgICAgICAgICAgICAgICAgICAg ICAgICANCjw/nGOoL0fwnGLpdyU7J8kwKh0JMy6EWW3fh8OoEEFoQWtztySeQdsLTzNjWCFgAgmHMzu1 KKjpTN5KnXGlO5TwW3MvNYqmMF4ZZALiVGNmtYKmQALxGZKtWxQ9ZFEmREwaSI5WqYSqFYskYSUcFIYc NyAwIFIgOSAwIFIgMTEgMCBSIDEzIDAgUiAxNSAwIF TxNNixVGPVPRD4PVYjMwHcTXHoHIRqSqDaEAUSIKV2JGGrQaUcVsCuCBXbAN5UGDNhR302uqLuXOPAKy 4+MJasbxOdSkcDKaB0ZWPle4OzBEr4YA3CVSUyIosad8QmMLwoPIIORVsdFY7GHLS5AQDsNIObFp6TFR MrG551tfKtSR7PCe7OLeGoRD1gqd8VLDuaXUSxCrmB You2GHikAK7HmVDdSCqOTMGNzr47aPMjkwKAa9XmeaXijNNAlGUkd7AexIfdfiXKpELyTELdNZMCEAF9 GOYpYCDiRmOdMGIjCNcmQAWJVPdFXkIzQ5Gcy0IuLmM4AWNvBhFhGPrjNCMnKkQxKK16wElbBT0EIIDw BEZbJZ91RUU0UTMrRs9SZXAzCxA1iKU7KVFgUNAPSu 4+ZBrpssGrPlvGCkS6IDMya5ZxLQo1XX4NUFOpLTo0nETxEQKgZGEompwmOUFyKh37TTGrAljvD0dvsG A5u0LjIHAhNAOumcMeVZDRYgOscSPeSyStIoAaFwWpBKJ0DDAxDY0kKLlgXT2EKQW8YUuhYPYsELAKOI 1VLZzlXKL0SVQlzqTplXUuMAnkQV1YTPOirsSvJJxh PJVHXFjbTK0OucU3KNH6KCUdFa6CBGKhQvI5cEU4GAOfBDYWNl4+BGtvntAoMqtZMaAiHTLfb9WoTRs6 DJ0NTGTwSQr7vNBxLKSjO5WhsCGgdtLrxPBTviPlyDATXOOtpAliPXVUYLZ8SXVjGPHxTyWvLCMcYJr0 KKEQVVqVAmBoR8Tmx9CrNrEwVtImMWNiO7wJSzNcUB NtSzFsvMupYJ9TDpVmB2SezzTmfDV3ItZrIOFPLbQoA5YxZRPwRSgiHVJEPXslCJ1TCEs3TKYhRHJcMi 2DWa8YXtVgKB6irr7AILEaOKZfJpvQGtx5VBhbBF4PgQXxEWoJZDYSaxesF4DuSq00UWFsKbslDSjdvL VsbGUgTWlsbGVyLCBSTiBhdCAzLzEzLzIwMjAgIDI6 KYhzFF6fKDjwFT0MNJG6UEkjZmneDPXYGP5VEOdmYAY7DPHufnMbgOWoZKahVX4AAWDlshXwZZuqJHMV MKvwIY6BqwJ0DKReRGQzXj3DOk9JElJvWL7njk0HXUKaQBRqQopCGzf4DAqvJZ9KtAFvA7OisUFrc8bR InYfN3TXLNE8PRApLo2KZRPnMhAuTUBzXMugMG1jSC UtAFWOkCrhofR4HM2ITO0ukpVkNT1JXzMsEg1eJl5DYwTqG0XiM6UsGWDlBDZHVItoLT4XTMwuEV1nPN 1Xo1BVsFZhuM4bhn1MZLRfPIYzYltizf9ZMpiiM4V3fIlpGBZdTXhrHOSDAXfrOC3ZYAKtXGX6EEY9Ol OeVPHSCdWtT55oVA7XT6Flh71nNcG9IQLbQjHcROwt PC43wFkhsfTjjDSflYzqUB3ZEh1+IJxnrnCtFumHZhuiUTSEUbTvVBASStDrRMDoABGhGIFkZwC6LkOj Mm4OMLRfWSJtIXIaGnWrYBXyEGEzLFteXYKiCFJiQgVxAKHmRJRfWM3ZUeWoHFZhENQ4YSGpWCPyOEJp ti4EZOMmLJHyECY5ZkCiQDIrVDHlNAtrHEUsZOWqJh voFFZxDPXiCT9WNaZeMLUzYFM1SYQcLDGsSPNajl8SAFNaLTYjFtNlEGFdPLYwYVEaOKdwMZUuDUK0SC FaPCTsXHKbUY2PSxOoCVLsYHpnOFKfNYQuVFRaiq4SNKGcVKChLDDgCtOmTACmUYNwHIrtXWSaRQOmRc Z6WUXqHSZpFM8DCvTgJAJzTEX4GYTkCWPwWWLzdn8I DOYwCVHlALp8INPcWASoOJDsAJxbAESlWCI5VPR9DQBpFLOlMB9BQnOiZCTaWAe8LJKaVSBbTCJzrn7Y UJKjMDZpEQUqPQOrZQMoODEwEDohVNWhKDKgFLouFDCoKSXqFX7HOtGdOZYdIbOgSCrkMZHzLCWqpk9B YBNoUHQnFVMbYfTkNWYxJNSuWRtqXJTmYOS2GUXlEM LbOQBjDC4OZvTvDTGbYqwaWTffJQCpEHNout2OURTxFMOvLsG8WqFnCJCxHJOsOYszNQLfJSZ7AeKhFN EyOBOtON2QVlLwTYStNae6ZiwbJADoBAKcky7DKDAtDISdGoicKUYhKBQiJDZnYBtwVPIzMUCiJNIcOL DvBCZgJE1YHzFvSPRgMrNqXefuHSOkJCTjwc6RBFDc TEJiRTP5DFMmVVJdWGKyESzzVEEeHBY5MGI7LPExXLCiCW2FIjBtCAKxTkZ2UoGuZHIcUVOgar3DTBPv JLUmRSkmNOUkHRAkQNQmORhvBIOoVIL4FDcyWTObGYAySN6QRmOiRXUaWxidXbVdHIXvSFOdee1NNFJl CDQoSqW7YjCdTIIyJITzXExpJOFsAXT9RjNgKLDtFQ JcXK1FHmVfWVMnBfk4WpAsWRKjWMMiwp7XXNXoKHRrGGFuAzQwBTCkDQJoRDnhTSGlHEY2KVe1JXRqZM FbEY6OQiAtSUPiKMWkSJUzNYUvSYQihp6EBEIpKCL0KWSdCEHiIEEuUQOvTEcnAUMrMIFfJiQ4ASJsUU EzJJ1INwGlKYRjQQL5TMMpRALxWIGwdg8HVVKpHJQ0 KOx2KNBbEQIuLPHjCYucATYqCLMuXOMiAUOzQZUjSB3OLuGvPMXrZDWeYDFhBACjDTQpyi4FLKGcITE1 SiK8SxLuTGWuDCNmTLvxGPTiICD1GQW0CABaPYKxDH4SPhPtDQHxADSgNbihJOQrNWGpji8JYEQqPKL2 XTZnMRDsHENhRYFlAUtwTKGdTMZ1LHi6FLWiNRKsOV 0RTnMkTPVuKIF5FiOxUZEdYBJloh8AAZLyDKE3QLyjNaHqAQEeFSLdRGb6msJwtKNnGBe7XA1DE5Gczo WfTKDBIa4Ap355WVOdCWLtSt6IW3fmMu2dPHCjRJOIPw8BOOe7AiJ6O1RaLSr7HZXoOYllN7NzVMYkRP OiEXOxT1S9XHH+TLarOQcfWBXcGWB9YJE1NiOmWhVp QAWgASZzQDSjCKM5Xw3yBMGZJl7+AFodaGEwwHttSBJMXlT9KYz4XNrxVUMRCw0O ID Date Data Source [id number] 08/22/2019 10:07:20 AM T [facility] Name Value Range Interpretation Code Description Data Paula rce(s) Supporting Document(s) [facility] VTSNYf5zOwHAAfXjt0GpSmQrNYNwSA1hczr5T9G9uESyR4QuuCBdk5acR1HsD5CoKKKiMMDTNU9YuHVf jb2 [file] OJUiLjrXDu1Wr3TvfyS1leXoHqjhUcWjFvFkLI9S ID Date Data Source [id number] 08/21/2019 04:27:01 PM EDT [facility] XR CHEST FRONTAL ONLY [id number] RESULTI nterpreted by:Issac Lozano, MDPROCEDURE INFORMATION: Exam: XR Chest, 1 View Exam date and time: 08/21/2019 4:19 PM Age: 58 years old Clinical indication: Other: Syncope TECHNIQUE: Imaging protocol: XR of the chest Views: 1 view. COMPARISON: CR XR CHEST FRONTAL AND LATERAL [id number] 08/09/2014 2:23 PM FINDINGS: Tubes, catheters and devices: A pacemaker device is present and its leads are in appropriate position. Lungs: Unremarkable. No consolidation. Pleural space: Unremarkable. No pleural effusion. No pneumothorax. Heart/Mediastinum: Unremarkable. No cardiomegaly. Bones/joints: Unremarkable. IMPRESSION: No acute findings. THIS DOCUMENT HAS BEEN ELECTRONICALLY SIGNED BY ISSAC LOZANO MDThis document has been electronically signed by Issac Lozano MD on 08/21/2019 4:26 PM Name Value Range Interpretation Code Description Data Paula rce(s) Supporting Document(s) ID Date Data Source [id number] 08/21/2019 04:20:39 PM [facility] Name Value Range Interpretation Code Description Data Paula rce(s) Supporting Document(s) Troponin I.cardiac [Mass/volume] in Blood 0.00 ng/mL 0.00-0.08 [facility] ID Date Data Source [id number] 08/21/2019 03:53:29 PM [facility] Name Value Range Interpretation Code Description Data Paula rce(s) Supporting Document(s) Influenza virus B RNA [Presence] in Unsp ecified specimen by Probe and target amplification method Negative A [facility] ID Date Data Source [id number] 08/21/2019 09:19:54 PM [facility] Service Cmnt XXX-Imp : Microorganism XXX Cult : This respiratory PCR panel detects Influenza A H1, H3 and 2009 H1 viruses, Influenza B virus, Respiratory syncytial virus, Human metapneumovirus, Parainfluenza virus 1, 2, 3 and 4, Adenovirus, Rhinovirus/Enterovirus, Coronavirus HKU1, NL63, OC43 and 229E, Bordetella pertussis, Mycoplasma pneumoniae and Chlamydia pneumoniae. All results are negative except:Ribonucleic acid of Influenza B virusIsolation precautions required-refer to Infection Control Manual. Name Value Range Interpretation Code Description Data Paula rce(s) Supporting Document(s) ID Date Data Source [id number] 08/21/2019 04:07:07 PM [facility] Name Value Range Interpretation Code Description Data Paula rce(s) Supporting Document(s) Leukocytes [#/volume] in Blood by Automated count 4.9 10*3/uL 4-10 [facility] Erythrocytes [#/volume] in Blood by Automated count 4.25 10*6/uL 4.6- 6.1 L [facility] Hemoglobin [Mass/volume] in Blood 13.5 g/dL 13.5-18 [facility] Hematocrit [Volume Fraction] of Blood by Automated count 40.4 % 4 1-53 L [facility] Erythrocyte mean corpuscular volume [Entitic volume] by Auto mated count 95.0 fL 80-96 [facility] Erythrocyte mean corpuscular hemoglobin [Entitic mass] by Automated count 31.8 pg 27-33 [facility] Erythrocyte mean corpuscular hemoglobin concentration [Mass/volume] by Automated count 33.5 g/dL 32.0-[facility] width [Ratio] by Automated count 13.8 % 11.5-14.5 [facility] Platelets [#/volume] in Blood by Automated count 187 10*3/uL 150-400 [facility] Differential cell count method - Blood [facility] Neutrophils/100 leukocytes in Blood by Automated count 63 % [facility] Lymphocytes/100 leukocytes in Blood by Automated count 23 % [facility] Monocytes/100 leukocytes in Blood by Automated count 12 % [facility] Eosinophils/100 leukocytes in Blood by Automated count 1 % [facility] Basophils/100 leukocytes in Blood by Automated count 1 % [facility] Neutrophils [#/volume] in Blood by Automated count 3.09 10*3/uL 1.8-7 .0 [facility] Lymphocytes [#/volume] in Blood by Automated count 1.15 10*3/uL 1.2-4 .0 L [facility] Monocytes [#/volume] in Blood by Automated count 0.60 10*3/uL 0-0.8 [facility] Eosinophils [#/volume] in Blood by Automated count 0.04 10*3/uL 0-0.5 [facility] Basophils [#/volume] in Blood by Automated count 0.03 10*3/uL 0-0.2 [facility] Nucleated erythrocytes/100 leukocytes [Ratio] in Blood by Automated count 0 /100{WBCs} 0-0 [facility] ID Date Data Source [id number] 08/21/2019 04:45:22 PM EDT [facility] Name Value Range Interpretation Code Description Data Paula rce(s) Supporting Document(s) Albumin [Mass/volume] in Serum or Plasma by Bromocresol green (BCG) dye binding method 4.2 g/dL 3.5-5.2 [facility] Bilirubin.total [Mass/volume] in Serum or Plasma 0.3 mg/dL <1.2 [facility] Bilirubin.direct [Mass/volume] in Serum or Plasma <0.3 [facility] Hemolyzed Alkaline phosphatase [Enzymatic activity/volume] in Serum or Plasma 50 U/L 40-129 [facility] Aspartate aminotransferase [Enzymatic activity/volume] in Serum or Plasma 28 U/L <40 [facility] Hemolyzed Alanine aminotransferase [Enzymatic activity/volume] in Seru m or Plasma 26 U/L <41 [facility] Protein [Mass/volume] in Serum or Plasma 7.0 g/dL 6.4-8.3 [facility] ID Date Data Source [id number] 08/21/2019 04:45:22 PM EDT [facility] Name Value Range Interpretation Code Description Data Paula rce(s) Supporting Document(s) Bicarbonate [Moles/volume] in Serum 23 mmol/L 22-29 [facility] Chloride [Moles/volume] in Serum or Plasma 106 mmol/L 98-107 [facility] Creatinine [Mass/volume] in Serum or Plasma 1.14 mg/dL 0.70-1.20 [facility] Glucose [Mass/volume] in Serum or Plasma 128 mg/dL 70-140 [facility] Potassium [Moles/volume] in Serum or Plasma 4.3 mmol/L 3.4-5.1 [facility] Sodium [Moles/volume] in Serum or Plasma 141 mmol/L 136-145 [facility] Urea nitrogen [Mass/volume] in Serum or Plasma 18 mg/dL 6-20 [facility] Anion gap 3 in Serum or Plasma 12 mmol/L 8-15 [facility] Osmolality of Serum or Plasma by calculation 296 mosm/kg 275-300 [facility] Creatinine/Urea nitrogen [Mass Ratio] in Serum or Plasma 16 [facility] Calcium [Mass/volume] in Serum or Plasma 8.2 mg/dL 8.6-10.0 L [facility] Glomerular filtration rate/1.73 sq M pre dicted among non-blacks [Volume Rate/Area] in Serum or Plasma by Creatinine-based formula (MDRD) 69 mL/min/1.73m2 >60 [facility] Glomerular filtration rate/1.73 sq M pre dicted among blacks [Volume Rate/Area] in Serum or Plasma by Creatinine-based formula (MDRD) 80 mL/min/1.73m2 >60 [facility] ID Date Data Source [id number] 07/29/2019 11:30:09 AM EST [facility] Name Value Range Interpretation Code Description Data Paula rce(s) Supporting Document(s) Progress Note [facility] PKSDXh8ySrXXYaWn40/MIXeuKVBpb8HtIYqhFDq9YElhODBlG2YrTXC8pN4zMVI5KXuZJkRoUcKwOcQ0 lbm [file] burner operator/qL2Lltb2fsuFypn328eK82kuy9P825Pv/WqTtL+T/iA6l5dBoG+f279/8wscohTCV2RtjhK+x+T2c [file] JeyUdmk2koYiDWvWes4AY7LMVBue+ITAjnwpb/evp operations+L [file] BA1z1/PATTERN DUPLICATOR/80ueejZ/Co5cr7Z1qSKQe6xjtM/6o48El [file] E7YbPmGF3IZDNNA0QBFx== ID Date Data Source [id number] 07/29/2019 11:29:[address] [facility] Name Value Range Interpretation Code Description Data Paula rce(s) Supporting Document(s) [facility] VEUBZf9eVkNJZbVfn9VuXdMqCRRwKS3ltug7J7R6cKKnL7GynYAxh6ruI7HsF0RoKGHuIUWTBV3UkDVs jb2 [file] zHoozHoozHoozHoozHoozHoozHoozHoozHoozHoozH oozHoozHoozHoozHoozHoozHoozHoozHoozHoozHoozHoozHoozHoozHoozHoozHoozHoozHoozHoozH oozHoozHoozHoozHoozHoozHoozHoozHoozHoozHoozHoozHoozHoozHoozHoozHoozHoozHoozHokMo D4XGdYIRdwNlFbtUjwPaEZJIEeoGY0efPT9nSgvSkF bt+mxv0JegjNYZiNYgxOsYX+JEnAi+iUBK5LLUrHYZasyCjI57By0iQFvXuvs8MHqVGYrJw9RLIwMUUv TLnMPMvFMgHAPnbOloKzTPQlFQJZWy6B3D10YwYFNUEB4ULiQAWAULZFnaLHDTtSvZAASXrYRSRepPXX CUgVEGdY+wTghqUhwcETbfZJ0urUFxyVvYuiPxZ4gD whFS8WUZtHPxPVaVB5UguSwJSsuABSkVQZkuz7oK3GO0ABEgRbKv8VdH3yDUfRjTyQmWHbdXSJtLsTdF RQkiQRYNFYnDcVMzL2ACuFUkU8OqpWkrzA86hLjUWTgMQL2LzlRXTyDpHOOORBI/seKxvATfgDKYHAeT 83NqTExDYZVZueVOHxOjZgT6XaUomVjGTCojkbDCZb syWBwHi+NmLQcD31FRAADph3S7NqbxtWbm0neanIuzkR0Ih+dG5ghq05t9+W3c/V5miXVCiS/UgfOJOn A+UQfOJ+rA+UTNeCxNEKF+PW1xXY2u1DQNuzAWYyDipRH04bfhCtGMg54j1FWEbzNUI8l9LAzTveaFXl dEEKbFHJv1gPtYe7vYz+UpBHamjMdS/2YrCvyj5TiO EGm/+6zbANh9SOuVCU+XtyUOqX9g0hqsIlTEBGFzVoWoUtQ6xrqtJam3GOKTpafn1oJVnkWVVb7TNFOG AMFnRwPTEDRNfWDcCgbFIxDpAuzcc1rQALTBUgaMcYPVARdUsAdEH3z4VTRNl0sSkyfDG6zGz7B3mlGe S+2UKYtTzfScWJlcNdU8uxDcUPhMZZnMPSph7dJ+Qj 0H/0jbUlxeoNtUjQH4eMAP9aOcyTfXywAz0KofesWG0DjAQniGHgBxIQUcO2v3T0ew9ybLJp0J6qKumi ORrotgMyxDZCnnSs51YnOUn+Bxi398mpnvyKqmj07Kvj1qw3QEW8kxuoBTEIbvQ263qyvfaID4njveTs u7cT/VEIkKkhaoYOY0OKQfyQDz5u1SmgwWRJY0xAbR ncjAZthNvRCd0drUeWE3ttfKEgrGVDatPIOPLmSP8ShLuZE2QFG1d0Qnh61T11kQ65uE80hD37hS12eB j+USTsSJBJEgMolQBvCzrQY/07lat51Dn+MY9PinfsoR6KQbheZ0F5BU/0Q1+E9Ug/9ENfhPVIP/RK14 MAc2fyhyBOS0GGfyM4TbERIjbdW2IgYmfeIvitDaRk /zzwQulGPR5GBzeMTKAN7CH+vDBq7TRVlRVyQqz+VEYG+0xTUR/nT71qNnvUdcYrzjueA9pmEibQESmz smiKhKWANFUNOvs0lYJO4ObBLgUJtDCWOAFQHdmons7DmVWBqaTO8wlQguz1mJ6JmDwyCvGqdY2NFTpJ BM+7sPeQhkNvuwB9kFJXBGMbaQdNdqAjbMORnEINMN fy8AlRjhqIc74kaSMOdYQW3a+5A5SxBjjYwb1CEp+4gSs4Woi9X0BqPXGtNzfuHvAlxoJ84KdPuzhUX5 QpT6tGBHhgP0rzAZUVqBbBclFY0wuNswy2/mBuNrX1cr9TDnKv20T9ixL3PEBzXxGEZKgBl3843EBLgL FRTFHD75knr3TrJQtbl2FMUvmW1IWvMo0MhV0l0xFM +dDTHFXXFrppk8NtKAUH0qjFjiOKMEIlFsEBIvla6yLRriHYoNDkSVaKWrtUiyvqROc2sBbFBouMGPZL WOXBWl5gfZ0rmOYEojUvvamsnuIpJYYLOMGsOpEGXdHmIOtNYPBcdZPvRuJcEgA8jDmEKh0CrqVUlNzL McOMeBUwa+QqovV8CabKZspHevnfRBxeYnYAyVp+A4 MX9K7VmZ0facOsFjvgEU34K4qoFXKGlODGf2lWG/fLj8T4b+CJJGPREaAuDFRVW2Eml84MVpfITSXaHO kGsjCXIbb1qJREaqPhoMRekLhqMB1j6CEUz45ypSWw1Qv6nvysqQPwDqv4IZMSihEAaCTukPdzWYzaNa jPewU39soduMzLc7glmD6/eOn8wwJwYoj98CpThwHf dhIwyFxiQLYaEfGUBEPKtGLGYtBSCBvGpOHyQLEzIEEHEjFQRMzYcDAOAUDsC9Bl/+s7/05qg5p3AENg 3wj9/+zd/Kv/32w//97ec/mPPjY5GiJB4z//27H37+/V9/98t/9+2vf/Gz//Ddz/8KOY+S6431c1/8qQ rR8Gk9xe5gftfPE/chnf8HCmqnU8/Anz76U/tR/q8B M5D/13/zy7/79je/+vUPX+/x7a9//pe/+Nl3f/Gqs848r7/9+fe//sUPf/eTD+qSk0485a67//Q3P/zi lz//9v3Pf/j+Fz//2+/+6k+k8YXtP8O+6O0+nuv8Dlho/eKXf/Prb3/x/Xd/+Xc/++77v/zFd/+TvJ8v 9r0ZAGPx/bM//P6//NMff/fbf/z2f/y3b//xX//4L/ /758070m/+3bf/7V//+V/+6fff/z4woXo9//2//faH33/TU1x219gkQ8HC/hNds0676//Gh96iTF499C /3uz//Fy27N1sNcz/6y62JfCh3q9C//+G/Fi6O1Oipr//8+mc2dRsczjztk/bAkfti0PZ8tO0IYN/7Gh ff9E+ldQLFfDJ8/9v/8ts//jNC03bxce4qR/zir37x q2//8btf/dV3v/xTB6yZIrAV/+EAyYG1Vzwbbc7t7yL/+BUFfPyRNOgUwdHHGvvb3/7+X/79tz/+5l9+ +0Awlb8739DxiPwT00i/l8tU5XsL9d/4q++//dPv/+W3f/x/fvNf/yfVX2n+nYf970rO/ye1X+w/f//r b//4r1/v/k9/+P2fVn+wcu2C4ScAt/3nH/78P//wD+ zn/Shws/hzG/ew5w9ZAfgPJ0k/6OW//kU86eYVbs1IkX0tS80gQi/5/ic/fPvN//vbf/7cB75ucxj/+e vv/q5i8yh38/8b39/+2x///t/+Se7bDX/9m//6o+7dP0J/9pt//Yff/PM//eb3/9P4Pukb/+EPv/vpn6 D3df/qD//mH4OFEqt378xv6z7RomoiW/xfv/+nf/h6 wk+/ffe//km+E90i8/3oo2zNw7/wbu6Hx658aV3TTp/5P3/7Uk672c051+r+SB21u9N++/ltg8M6hKl6 +/lf/vDTXIS+cZH+T9//5c+//wLGlwy+etO+ffezn/2nv/grL71iqVdEF2obxg5/HzOJ+JDJJW1hy2Qh YAXhGdImIG7rmgntUOIqSE2xore5P4IcqFdnEZvFIW TpFa7tyECnXY2CSGW7VBjfWDPqSTTrB4WpoJ8yW13jyQViEzTkTNZSVQ3ChwR5UPJ8SIR7DDXrTwDiAD [id number]XH4yqmx4W3Z3fSPfD449fWckyzIxAF2Wu7MrsTUeRK1QiXAqjH AfBZYdAGAyP3yrm2KpIApjLWIMQm7igjAtJnyXStQz UQ5lloa5D3I2bYiqymNqWKJAXIfsZqolUN4sfEoqldflM7PlkENyIWAcS3FfJCFcs50WMPHsVQcFJpYx XxJjYbP3SLSpTXztPbYaIYOmVRBhGWXcIV5PaYWdKKGzDAHTKNqjNzuxBZZzuQ3edNLBn8WmM1OQBNEA MX0kOB6IW8uIXTudLLJwJuI4DhcgR1X9LjikC5BpKL 5UD5XcSOPhYGNRUDWowoJuPR8EdqFekE2ePTfHEXITWJvYLSywVxL3n88ouwPUXIUuEUUsPRpvBRMtOV AhFDSgQFVtFWWuCHZnJBJyLE4KY5NdZADbRQCVTCY7d9XuCLMaiytbjefwXn0przOtQqj+PgoxIDAgb2 QkYDsxY9X4vFFjW2ZcP5BsFP2GhWMuKDohKRMwCHGn KCEjI647gjNkAV6+KF8vp0NgHzboAYVFGPGsLHBeEPQsJFA4ViHtLKJbRCAzXCAfWsY6JoLpXnYKGMCb RAW8VYmlIBCsEEWfBOBjCAuoNZKnJEY9THK4ZQTmGSVmDH8qIiMsSVJvOdO8SvMkAZPpOFZzrmAAPCWc VJRpLKCuPMH6ZLItJTQxNYinUGWlWVMvSJP1LYXvTC OqSC5kWcLgMUAtWPLmMnwvUYCfJVItkpEHIZTeBMEzPEK7OqTpQDBoHXAjCSgxVEZtPBJqGgv5EYUnSV VrMB8iIgZgGZNzVTM8SQgpHMByHEPbggEZPFYjMCXkXTRpPoErVKJkQQWcWEfdNRPpOVBuDhQtEWPjTX NvAY7iGgTeSIGrQWT5PJKxIAVtASZodtMSUYGcVYIt PUh9WYKgPVDqTSFzMTjzHDArQOOqICG3KECmIMHrUG2oEnFsRSHhRXOsLOUgSRCtYKJcjnPPCUOlOFPy SNZ0ELBiPPFnPQWmADhbMKXtEWRzPlu1JEEiTQKxPQ2hMaHvFBZvADH3LAFpAKApAUXmhjBJPROoNPK0 ONZ8UbVcVIQoYAZkQBwiZGPzEWAoRoF1PMOtYJUkNM 3cLbFgJIPiWVG0RlEsBKIlTKYeqwPXOGNgXIZwJNC4EnWzZHYrJTZkTLvoZGQdVHUvCZDiSYS6QQB3OV LlZxIlAMsqSXPWENrJW0XfgrZlXvYDH8fyQu8dPrPqEWGBV0Qso0SnNSWlUUFQJi3+QtI6KJD6mHCxOt z4QHa7QOrfRMZZFm== ID Date Data Source [id number] 06/16/2019 12:41:18 PM [facility], PCName: Fercho trish TrevormanDOB: 1960Provider: DusGauri stevensylaDOS: 06/16/2019 Chief ComplaintNeck pain and back pain Chief Complaint 2NYSW VAS PAIN Established: 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 Creatinine has been ordered as well for specimen validity, not for kidney function. Preliminary UDS results are not final and should not be used to determine patient care or plan of treatment. Initially a qualitative immunoassay screen will be done. Please note this is not a dip test. Any positive findings or negative findings that are out of compliance will be further tested with a more comprehensive quantitative confirmation LCMS study. It is part of the normal prescribing protocol of controlled substances and is considered standard of care. Recent test/procedures: Patient was asked and denies having any tests since their last visit. Patient was asked and denies being seen by any Physicians since their last visit. At today's visit patient presents with their Self Patient is not currently working. 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 The deshaun pierre is being seen for a follow-up. Pain Duration: 18 years Pain Quality: (Nociceptive) sharp Timing: constant Progression: unchanged Palliation: opioid analgesics and sitting Exacerbating: over extending, laying down Pain Score: a current pain level of 7/10, a minimum pain level of 6/10 and a maximum pain level of 9/10. Condition type: The patient is being seen for a chronic condition. PAIN LOCATION: the pain is located in the neck, the pain is located in the low back and the pain is located in the mid-back . REVIEW OF PAST DIAGNOSTICS: have included: MRI, x-rays and bone scan . Records were obtained, reviewed and on file. PAST TREATMENT has included: ANTICONVULSANTS (effective) Includes Topamax., MUSCLE RELAXANTS (effective) Includes Cyclobenzaprine ., OPIOID ANALGESICS (effective) Includes Hydrocodone and Oxycodone. INTERVAL EVENTS: include no significant change impacting patients medical condition. ASSOCIATED SYMPTOMS: include difficulty walking and muscle pain/spasm, but not radiating, no fecal incontinence, no extremity weakness and no urinary incontinence. FUNCTIONAL LIMITATIONS: The patient's functional status is limited as follows: ability to participate in hobbies and perform housework. MEDICATION SIDE EFFECTS experienced by patient are: no known medication side effects. Review of SystemsROS was reviewed with patient; documented on established patient questionnaire dated 06/16/2019. I feel the ROS to be negative/normal. Patient maintains at today's visit there has been no change in his/her hematologic history. Active Problems 1. Carpal tunnel syndrome (354.0) (G56.00) 2. Cervical postlaminectomy syndrome (722.81) (M96.1) 3. Cervical radiculopathy (723.4) (M54.12) 4. Chronic pain (338.29) (G89.29) 5. Encounter for long-term (current) use of medications (V58.69) (Z79.899) 6. History of heart surgery (V15.1) (Z98.890) 7. Implantable Cardioverter- Defibrillator 8. Joint pain, knee (719.46) (M25.569) 9. halfway current use of opiate analgesic (V58.69) (Z79.891) 10. Low back pain (724.2) (M54.5) 11. Lumbar herniated disc (722.10) (M51.26) 12. Myofascial pain syndrome (729.1) (M79.18) 13. Postherpetic neuralgia (053.19) (B02.29) 14. 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) Allergies No Known Drug Allergies Updated By: Florentino Young; 05/09/2016 8:56:03 AMDenied Adhesive Tape Recorded By: Rachell Bradford; 10/09/2011 12:42:04 PM Iodinated Contrast Media Recorded By: Leonid Gillespie; 09/02/2015 11:01:30 AM Latex Recorded By: Rachell Bradford; 10/09/2011 12:42:04 PM Current Meds amLODIPine Besylate 2.5 MG Oral Tablet;Therapy: 28Apr2015 to Recorded Aspirin 81 MG TABS;Therapy: (Recorded:38Gzm6520) to RecordedLD 09/24/17 am Budeprion SR 100 MG TB12;Therapy: (Recorded:37Ulp6687) to Recorded Cyclobenzaprine HCl - 10 MG Oral Tablet; take 1 tablet by mouth three times a day ASNEEDED FOR MUSCLE SPASM MDD:3 Requested for: 89Bai9372; Last Rx:84Kfk3103Vrjslxt Fish Oil CAPS;Therapy: (Recorded:79Xgd8689) to Recorded Flonase SUSP;Therapy: (Recorded:15Oct2011) to Recorded Horizant 300 MG Oral Tablet Extended Release; one tablet at evening meal MDD:1;Therapy: 01Xwh4287 to (Evaluate:07Oct2017) Requested for: 13Cod5628; LastRx:09Jul2017 Orderedlong ti me HYDROcodone-Acetaminophen 10-325 MG Oral Tablet; TAKE 1 TABLETS EVERY 8- 12HOURS NEEDED FOR PAIN. MDD:3;Therapy: 17Sep2011 to (Evaluate:24Jun2019) Requested for: 09Bfi7091; LastRx:99Ubg6454 OrderedLD-06/15/19 9PM LaMICtal 25 MG Oral Tablet;Therapy: (Recorded:15Oct2011) to Recorded Lidocaine 5 % External Patch; APPLY 1-2 PATCH TO AFFECTED AREA 12 HRS ON, 12HRS OFFCode D, Dx: 722.81 MDD:2Code D, Dx: 722.81;Therapy: 15Jan2012 to (Evaluate:16Jan2015) Requested for: 55Uvm8932; LastRx:29Foc5871 Ordered Magnesium 500 MG Oral Capsule; One tablet daily MDD:1;Therapy: 34Eac1463 to (Evaluate:04Jul2019) Requested for: 64Btb6494; LastRx:99Zsh2980 Ordered Multi Vitamin/Minerals TABS;Therapy: (Recorded:15Oct2011) to Recorded Naproxen 500 MG Oral Tablet; TK 1 T PO BID WITH FOOD MDD:2;Therapy: 08May2018 to (Evaluate:20Jul2019) Requested for: 81Tdi5233; LastRx:25Wqt2385 Ordered Nortriptyline HCl - 10 MG Oral Capsule; 1 tab po hs MDD:1 Requested for: 17Gbh2581;Last Rx:15Zaz7981 Ordered Omeprazole 20 MG Oral Capsule Delayed Release; TAKE 1 CAPSULE DAILY. MDD:1 Requested for: 84Woc4464; Last Rx:98Waw1386 Ordered Simvastatin 10 MG Oral Tablet;Therapy: (Recorded:15Oct2011) to Recorded Topiramate 200 MG Oral Tablet;Therapy: (Recorded:12Jun2018) to Recorded Vitamin B-1 100 MG Oral Tablet;Therapy: 06Iwo0274 to Recorded Voltaren 1 % Transdermal Gel; 4gms to affected area 4 times a day;Therapy: 37Uan9855 to (Evaluate:17Nov2014) Requested for: 41Flk8019; LastRx:46Gnq4177 Ordered Past Medical History History of Bradycardia (427.89) (R00.1) Denied: History of blood coagulation disorder History of low back pain (V13.59) (Z87.39) History of syncope (V15.89) (Z87.898) History of Neck pain (723.1) (M54.2) Denied: History of Taking Blood Thinners Surgical History Denied: History of Cardioverter defibrillator insertion History of Neck Surgery fusion History of Permanent Pacemaker Type Family History Denied: Family history of No Significant Family History Social History Current non-drinker of alcohol (V49.89) (Z78.9) Currently On Disability Denied: History of Drug Use Marital History - Currently Never smoker VitalsVital Signs Recorded: 16Jun2019 10:15AM Height: 5 ft 10 inWeight: 215 lb BMI Calculated: 30.85BSA Calculated: 2.15Systolic: 140, SittingDiastolic: 83, SittingHeart Rate: 57Respiration: 16Height measured w/wo shoes: w/shoesPain Scale: 6 Physical ExamGeneral: The patient is a well nourished/well developed, male, heavy set, who is in no acute distress and appears stated age. Eyes: Lids are atraumatic, no lesions, sclerae are anicteric. Ears, Nose, Mouth, Throat: external ears and nose without trauma. Gait and Station: Gait was antalgic. Respiratory: Normal chest expansion and respiratory effort. Skin: Warm, dry, acyanotic. Psychological: Alert and oriented to person, place and time. Mood and affect are pleasant and appropriate. Judgement intact. Insight normal without delusions or hallucinations. Denies suicidal/homicidal ideation. Assessment 1. Chronic pain (338.29) (G89.29) 2. Cervical postlaminectomy syndrome (722.81) (M96.1) 3. Low back pain (724.2) (M54.5) 4. halfway current use of opiate analgesic (V58.69) (Z79.891) Plan 1. Renew: HYDROcodone-Acetaminophen 10-325 MG Oral Tablet (Re[place]); TAKE 1 TABLETS EVERY 8-12 HOURS NEEDED FOR PAIN. MDD:3LD-06/15/19 9PM 2. UDS-LAB Medicare / Commercial ([facility] Urine Drug [facility]); [Do Not Release]; Specimen Source:Urine; Status:In Progress - Specimen/Data Collected; Done: 16Jun2019 3. Follow-up in 2 months Follow Up Follow-up Status: Hold For - Scheduling Requested for: 96Lgi2555Juhiquns Appointment for 15 or 30 minutes : Schedule 15 minute appointment Medication:. [facility] CARE REP Information: CARE REP was consulted by my designee and I have reviewed the information presented to me and find no aberrant compliance issues. Patient has been informed. General Medications Prescribed: CYCLOBENZAPRINE . GENERAL MEDICATIONS: I advised the patient today/previously regarding treatment with the above medication(s). The risks, benefits, common side effects and alternative treatments were discussed with the patient. The provider verbalized with the patient. The patient verbalized understanding and was told to call if there were any untoward effects. Controlled Substance Prescribed: HYDROCODONE . CONTROLLED SUBSTANCE INFORMATION: I advised the patient today/previously regarding treatment with the above controlled substance and/or narcotic. The patient was then informed of the risks, benefits, and alternatives of the narcotic. The risks discussed included but were not limited to physical and/or psychological dependence, tolerance of the medication, drowsiness, sleepiness, balance/coordination problems, confusion, allergic reaction or any other abnormal symptoms. The patient was advised and agreed to use the medication only as prescribed, and not to drive, or operate heavy equipment or machinery. The patient understood and consented to both undergo a narcotic/opiate regimen and agreed to sign and comply with all of the [facility] terms of a controlled substance treatment and agreement.NSAIDS Prescribed: NAPROXEN . NSAIDS: I advised the patient today/previously regarding treatment with the above NSAIDS. Patient denies history of and is aware of rare but serious risk of kidney, cardiovascular, and gastrointestinal complications. The patient is on the lowest possible dose of opioids. The patient denies adverse side effects and does not demonstrate any aberrant drug taking behaviors. The patient is able to perform ADL's including the following activities for longer periods of time with less pain: activities of daily living, sleeping, walking, standing, sitting, grocery shopping . There are no changes in current medications at this visit. Patient instructed to continue current regimen. The prescribed medications are medically necessary for pain management and rehabilitation. UDS: This is an established patient and is on ongoing opioid therapy. A UDS is being obtained today, the patient has previously consented to UDS as part of the Controlled Substance and Treatment Agreement. The reason for today's UDS is: patient was selected at random and scored as low risk on the opioid risk assessment. Creatinine has been ordered as well for specimen validity, not for kidney function. Preliminary UDS results are not final and should not be used to determine patient care or plan of treatment. Initially a qualitative immunoassay screen will be done. Any positive findings or negative findings that are out of compliance will be further tested with a more comprehensive quantitative confirmation LCMS study. It is part of the normal prescribing protocol of controlled substances and is considered standard of care. Treatment includes: FOLLOW UP: The patient should have a follow up visit in 2 months. Discussion/SummaryPleasant 58-year-old male patient with chronic cervical and lumbar pain. He is currently stable on medications at this time defers any other treatment modalities. He will follow-up in 2 months time, sooner if needed. [employer] DisclaimerNYSW [employer] Disclaimer: This document was dictated and electronically signed using [employer] software. A reasonable attempt at proof reading has been made to minimize errors. Please call with any questions. Signatures Electronically signed by : Edith Tovar NP; Jun 16 2019 10:28AM EST (Author) Electronically signed by : Aime Jain MD; Jun 16 2019 12:41PM EST Name Value Range Interpretation Code Description Data Paula rce(s) Supporting Document(s) Procedure Social History Code Duration Value Status Description Data Source(s ) Smoking 01/26/2020 12:00:00 AM EDT Patient has never smoked co mpleted Patient has never smoked MEDENT ([facility]) Alcohol intake 08/21/2019 12:00:00 AM EDT Lifetime non-drinker (finding) completed Lifetime non-drinker (finding) [facility] Smoking 08/21/2019 12:00:00 AM EDT Never smoker completed Never s [facility] Alcohol intake 07/29/2019 12:00:00 AM EST Lifetime non-drinker (finding) completed Lifetime non-drinker (finding) [facility] Smoking 07/29/2019 12:00:00 AM EST Never smoker completed Never s [facility] Vital Signs ID Date Data Source UNK Name Value Range Interpretation Code Description Data Source(s) Body mass index (BMI) [Ratio] 29.0902823942640 kg/m2 29.8523540954623 kg/m2 CHARTMAKER ([facility]) Body weight 212 [lb_av] 212 [lb_av] [facility]MAKER ([facility]) Body height 71 [in_i] 71 [in_i] CH[facility]MAKER ([facility]) Diastolic blood pressure 82 mm[Hg] 82 mm[Hg] CHARTMAKER ([facility]) Systolic blood pressure 123 mm[Hg] 123 mm[Hg] C HARTMAKER ([facility]) Heart rate 68 /min 68 /min CHARTMAKER ([facility]) Oxygen saturation in Arterial blood by Pulse oximetry 98 % 98 % MEDENT ([facility] [place]) Body temperature 98.2 [degF] 98.2 [degF] [facility] ([facility]) Respiratory rate 18 /min 18 /min [facility] ( [facility]) Heart rate 78 /min 78 /min [facility] ([facility] [place] Diastolic blood pressure 89 mm[Hg] 89 mm[Hg] MED[facility] ([facility]) Systolic blood pressure 158 mm[Hg] 158 mm[Hg] M EDENT ([facility]) Body weight 95.254 kg 95.254 kg [facility] ([facility] Body weight 210.00 [lb_av] 210.00 [lb_av] MEDEN T ([facility]) Body height 71 [in_i] 71 [in_i] [facility] ([facility] [place] Body mass index (BMI) [Ratio] 30.2231739665619 kg/m2 30.5772098884057 kg/m2 CHARTMAKER ([facility]) Body weight 215 [lb_av] 215 [lb_av] CHARTMAKER ([facility]) Body height 70 [in_i] 70 [in_i] CHARTMAKER ([facility]) Diastolic blood pressure 82 mm[Hg] 82 mm[Hg] CHARTMAKER ([facility], [facility]) Systolic blood pressure 144 mm[Hg] 144 mm[Hg] C HARTIVELISSE ([facility], [facility]) Heart rate 60 /min 60 /min [facility]MAKER ([facility]) ID Date Data Source [id number] 11/17/2019 11:33:00 AM EDT [facility] Name Value Range Interpretation Code Description Data Source(s) HEIGHT 180.34 cm 180.34 cm [facility] WEIGHT RECORDED 95.578229 kg 95.478383 kg [facility] ID Date Data Source [id number] 08/26/2019 09:38:55 AM EDT [facility] Name Value Range Interpretation Code Description Data Source(s) WEIGHT RECORDED 210 lb 210 lb [facility] Body height Measured 70 in 70 in [facility] Patient Treatment Plan of Care Planned Activity Planned Date Details Description Data Source (s) Oseltamivir 75 MG Oral Capsule 08/21/2019 12:00:00 AM [facility] Acetaminophen 325 MG / Hydrocodone Bitartrate 10 MG Or al Tablet 07/29/2019 12:00:00 AM [facility] Simvastatin 20 MG Oral Tablet 07/08/2019 12:00:00 AM [facility] Amlodipine 2.5 MG Oral Tablet [facility] Metformin hydrochloride 500 MG Oral Tablet [facility] Nadolol 20 MG Oral Tablet [facility] Bupropion Hydrochloride 75 MG Oral Tablet [facility]
--- NOTE | 2020-07-29 11:53 | REP ---
INDICATION: left flank pain, renal colic COMPARISON: None. TECHNIQUE: Helical scanning is acquired in 4 mm axial images were reformatted. Coronal and sagittal MPR images were generated and reviewed. 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 On axial CT images, the lung bases are clear. There is no evidence of pleural effusion or upper abdominal ascites. The liver and the spleen are normal in size homogeneous in texture. There is a small accessory splenule. Normal adrenal glands are observed bilaterally. No abnormality is noted in the pancreas or the gallbladder. There is no evidence of intrarenal calculus or hydronephrosis on either side. There is a peripheral cyst in the lower pole the right kidney measuring 1.7 cm in greatest diameter. No retroperitoneal mass or adenopathy is seen. Normal appendix is noted in the right lower quadrant. No bladder calculus is seen. Bladder ramires appear somewhat thickened although the bladder is largely empty. No mass lesion is seen. Seminal vesicles and prostate are unremarkable. Small and large intestinal bowel loops are normal in appearance. IMPRESSION: No acute abdominal abnormality. No evidence of urinary tract calculus or hydronephrosis on either side. Small cyst right kidney. <Electronically signed by Ousmane Milton > 07/29/20 2307
[2020-07-29 12:01] LABS: BASO % 0.6 % (0.0-1.0); EOS # 0.1 10^3/uL (0.0-0.5); EOS % 2.4 % (0.0-3.0); HEMATOCRIT 40.1 % (42.0-52.0); HEMOGLOBIN 13.4 g/dl (13.5-17.5); LYMPH # 2.1 10^3/uL (1.5-5.0); LYMPH % 41.3 % (24.0-44.0); MEAN CORPUSCULAR HEMOGLOBIN 31.6 pg (27.0-33.0); MEAN CORPUSCULAR HGB CONC 33.4 g/dl (32.0-36.5); MEAN CORPUSCULAR VOLUME 94.6 fl (80.0-96.0); MONO # 0.4 10^3/uL (0.0-0.8); MONO % 7.5 % (2.0-8.0); NEUTROPHILS # 2.4 10^3/uL (1.5-8.5); PLATELET COUNT, AUTOMATED 213 10^3/uL (150-450); RED BLOOD COUNT 4.24 10^6/uL (4.30-6.10); WHITE BLOOD COUNT 5.1 10^3/uL (4.0-10.0)
[2020-07-29] MEDS ORDERED: CYCL5TAB PO (12:35)
[2020-07-29 12:48] VITALS: BP 156/77
== END 2020-07-29 12:55 | disposition home or self-care (01) ==
LOC: M ED 10:31
DX: M54.5 Low back pain (principal); N28.1 Cyst of kidney, acquired; Z87.442 Personal history of urinary calculi; R11.0 Nausea; Z95.0 Presence of cardiac pacemaker; D64.9 Anemia, unspecified
CPT/HCPCS: 74176; 80047; 81001; 85025; 96361; 96374; 96375; 99284; J1885; J2405